=== PATIENT | male | born 1950 | race Caucasian/White ===

== ENCOUNTER 2018-03-05 07:58 | Outpatient (CLI) | payer BC, MEDICARE ==
[~2018-03-05] VITALS: Ht 185.4 cm; Wt 111.8 kg
--- NOTE | ~2018-03-05 | OP ---
PATIENT NAME: MILADYS CHAVEZ MEDICAL RECORD: [id number] :48 LOCATION:D.CAT ADMISSION DATE: SURGEON: LAURA YING MD DATE OF OPERATION: 03/05/2018 PROCEDURES: 1. PTCA and stent of ramus intermedius. 2. Left heart catheterization. 3. Selective coronary angiography. 4. Left ventriculogram. INDICATIONS: Angina and coronary artery disease. PROCEDURE IN DETAIL: After informed consent was obtained and after detailed description of the risks, benefits as well as alternative therapies, the patient elected to proceed with angiogram and angioplasty. The right radial area was prepped and draped in normal sterile fashion. Right radial artery was cannulated via modified Seldinger technique with placement of 6-Guatemalan sheath. All catheters exchanged through this sheath. FINDINGS: The left ventriculogram was performed in the standard 30-degree SANTIAGO view, reveals good cardiac wall motion throughout all segments. Overall ejection fraction estimated 60%. SELECTIVE CORONARY ANGIOGRAPHY: 1. Left main is with no significant angiographic disease. 2. Left anterior descending has 2 areas of 90% and 95% stenosis; however, the distal LAD is not large. 3. The ramus intermedius is the larger than the LAD and it has a 90% stenosis proximally. 4. The left circumflex has moderate irregularities but no flow-limiting stenosis elsewise. 5. Right coronary has moderate irregularities but no flow-limiting stenosis. PTCA STENT OF THE RAMUS INTERMEDIUS: The stent used 2.5 x 15 mm William. Result was 0% residual stenosis. OVERALL IMPRESSION: Successful percutaneous transluminal coronary angioplasty and stent of the ramus intermedius going from 90% initial stenosis to 0% residual. PLAN: PTCA and stent of the LAD in the near future. 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
--- NOTE | ~2018-03-05 | HEMODYNAMI ---
PATIENT:MILADYS CHAVEZ MEDICAL RECORD: [id number] : 48 LOCATION:[facility]BR[facility]AN ADMISSION DATE: 03/05/18 Generatedon:03/05/201810:01 Patient name: MILADYS CHAVEZ Patient #: [id number] SSN: : Date of study: 03/05/2018 Page: Of Hemodynamic Procedure Report Patient Data Patient Demographics Procedure consent was obtained First Name: MILADYS Gender: Male Last Name: SCOTT : 1950 [facility] Initial: TIA Age: 68 year(s) Patient #: [id number] Race: Unknown Additional ID: [id number] Contact details Address: [address] [place] [address] ROAD State: [place] City: [place] Zip code: [address] Admission Admission Data Admission Date: 03/05/2018 Admission Time: 7:58 Arrival Date: 03/05/2018 Arrival Time: 10:00 Admit Source: Other Insurance Payor: Private health insurance Height (in.): 73 BSA: 2.39 (m2) Height (cm.): 185.42 BMI: 33.77 (kg/m2) Weight (lbs.): 256 Weight (kg.): 116.12 Procedure Procedure Types Cath Procedure Diagnostic Procedure [facility] w/Coronaries PCI Procedure Coronary Stent Coronary Stent Initial Procedure Description Procedure Date Procedure Date: 03/05/2018 Procedure Start Time: 9:43 Procedure End Time: 9:57 Procedure Staff Name Function Nakul Stewart MD Performing Physician Ángel Acosta RN Nurse Reba Mathur RT Monitor Cata Claudio RT Scrub Procedure Data Cath Procedure Fluoroscopy Diagnostic fluoroscopy Total fluoroscopy Time: 3.4 time: 3.4 min min Diagnostic fluoroscopy Total fluoroscopy dose: 861 dose: 861 mGy mGy Contrast Material Contrast Material Type Amount (ml) Isovue 300 82 Entry Location Entry Primary Successful Side Size Upsize Upsize Entry Closure [place] ccessful Closure Location (Fr) 1 (Fr) 2 (Fr) Remarks Device Remarks Radial Right 6 Fr Mechanical artery Short Compression Estimated blood loss: 5 ml Diagnostic catheters Device Type Used For End Catheter Placement DIAGNOSTIC [place] 110cm 5 Multi-vessel Fr catheter ([id number]) Angiography Procedure Complications No complications Procedure Medications Medication Administration Route Dosage Oxygen NC 2 l/min Lidocaine 2% added to field 20 Heparin Flush Bag added to field 2 bags (1000units/500ml NS) 0.9% NaCl I.V. 100 ml/hr Radial Cocktail I.A. 1 syringe (Verapomil 2mg/Nitro 400mcg/Heparin 1500units) Versed I.V. 1 mg Versed I.V. 1 mg Fentanyl I.V. 50 mcg Heparin Bolus I.V. 4000 units Integrilin (Bolus I.V. 10.2 ml 2mg/ml) Plavix P.O. 600 mg Fentanyl I.V. 50 mcg Fentanyl I.V. 50 mcg Hemodynamics Rest BSA: 2.39 (m2) O2 Consumption: Estimated: 266.58 (ml/min) O2 Consumption indexed : Estimated:111.54 (ml/min/m) Heart Rate: 58 (bpm) Pressure Samples Time Site Value (mmHg) Purpose Heart Use Rate(bpm) 9:47 LV 54/4,10 Snapshot 54 Snapshots Pre Cath Intra NCS Post Cath Vital Signs Time Heart Resp SPO2 etCO2 NIBP Rhythm Pain Sedation Rate (ipm) (%) (mmHg) (mmHg) Status Level (bpm) 9:32:28 64 15 98 23.2 116/73(94) NSR 0 (11) 10(A) , No pain 9:36:38 59 13 98 26.2 112/73(96) NSR 0 (11) 10(A) , No pain 9:40:45 63 12 95 26.2 102/74(91) NSR 0 (11) 10(A) , No pain 9:44:51 64 17 96 13.4 103/69(83) NSR 0 (11) 9(A) , No pain 9:49:42 76 15 93 24.7 114/69(83) NSR 0 (11) 9(A) , No pain 9:53:50 66 18 95 13.4 109/71(85) NSR 0 (11) 9(A) , No pain 10:00:17 67 16 96 12.7 135/68(94) NSR 0 (11) 10(A) , No pain Medications Time Medication Route Dose Verified Delivered Reason Notes Effectiveness by by 9:32:36 Oxygen NC 2 l/min Nakul Neal used for Pat Acosta RN procedure 9:32:43 Lidocaine 2% added 20ml Nakul Mota for local to vial Pat Stewart MD anesthetic field 9:32:49 Heparin Flush added 2 bags Nakul Mota used for Bag to Pat Stewart MD procedure (1000units/500ml field NS) 9:32:57 0.9% NaCl I.V. 100 Nakul Neal Per physician ml/hr Pat Acosta RN 9:42:21 Versed I.V. 1 mg Nakul Neal for sedation Pat Acosta RN 9:42:38 Fentanyl I.V. 50 mcg Nakul Neal for sedation Pat Acosta RN 9:46:37 Versed I.V. 1 mg Nakul Neal for sedation Pat Acosta RN 9:46:40 Fentanyl I.V. 50 mcg Nakul Neal for sedation Pat Acosta RN 9:46:45 Radial Cocktail I.A. 1 Nakul Mota for (Verapomil syringe Pat Stewart MD vasodilation 2mg/Nitro 400mcg/Heparin 1500units) 9:50:19 Fentanyl I.V. 50 mcg Nakul Neal for sedation Pat Acosat RN 9:51:26 Heparin Bolus I.V. 4000 Nakul Neal for verif ied units Pat Acosta RN anticoagulation with dr stewart 9:53:41 Integrilin I.V. 10.2 ml Nakul Neal for Waste d (Bolus 2mg/ml) Pat Acosta RN antiplatelet 9.8 ml therapy of vial 9:57:29 Plavix P.O. 600 mg Nakul Neal for Pat Acosta RN antiplatelet therapy Procedure Log Time Note 9:16:13 Diagnostic Cath Status : Elective 9:17:20 Ángel Acosta RN sent for patient. Start room use. 9:17:20 Time tracking: Regular hours (M-F 7:00 - 5:00) 9:17:25 Plan of Care:Hemodynamics will remain stable., Cardiac rhythm will remain stable., Comfort level will be maintained., Respiratory function will remain adequate., Patient/ family verbilizes understanding of procedure., Procedure tolerated without complication., Recovers from procedure without complications.. 9:18:07 Patient Height : 73 inches 9:18:07 Admit Source: Other 9:18:20 Patient Weight : 256 lbs 9:18:20 Insurance Payor : Private health insurance 9:18:21 Arrival Date: 03/05/2018 10:00:00 AM 9:21:21 Patient received from Pre/Post Procedure Room to CCL 2 Alert and oriented. Tansferred to table in Supine position. 9:21:22 Warm blankets applied, and nando hugger turned on for patient comfort. 9:21:23 Correct patient and procedure confirmed by team. 9:21:24 Signed procedure consent form obtained from patient. 9:21:25 ECG and BP/O2 sat monitors applied to patient. 9:28:20 Full Disclosure recording started 9:31:18 Vital chart was started 9:32:36 Oxygen 2 l/min NC was administered by Ángel Acosta RN; used for procedure; 9:32:43 Lidocaine 2% 20ml vial added to field was administered by Nakul Stewart MD; for local anesthetic; 9:32:49 Heparin Flush Bag (1000units/500ml NS) 2 bags added to field was administered by Nakul Stewart MD; used for procedure; 9:32:57 0.9% NaCl 100 ml/hr I.V. was administered by Ángel Acosta RN; Per physician; 9:36:05 Baseline sample Acquired. 9:36:11 Rhythm: sinus rhythm 9:36:19 H&P Date Dictated: 03/05/2018 Within 30 days and on chart., H&P Addendum completed by physician on day of procedure. (MUST COMPLETE FOR ALL OUTPATIENTS). 9:36:20 Pre-procedure instructions explained to patient. 9:36:21 Pre-op teaching completed and patient verbalized understanding. 9:36:23 Family in waiting room. 9:36:24 Patient NPO since Midnight. 9:36:33 Is the patient allergic to Iodine/contrast media? No. 9:36:34 Was the patient premedicated? No 9:36:35 Is patient on blood thinner?No 9:36:37 Patient diabetic? No. 9:36:40 Previous problem with sedation/anesthesia? No ? 9:36:42 Snore? No 9:36:43 Sleep apnea? No 9:36:44 Deviated septum? No 9:36:46 Opens mouth fully? Yes 9:36:47 Sticks out tongue? Yes 9:36:49 Airway obstruction? No ? 9:37:13 Dentures? No ? 9:37:17 Pre procedure: right dorsailis pedis pulse 2+ Normal; easily identifiable; not easily obliterated 9:37:20 Pre procedure: left dorsailis pedis pulse 2+ Normal; easily identifiable; not easily obliterated 9:37:25 Patient pain scale 0/10 ?. 9:37:32 IV patent on arrival in left forearm with 0.9% NaCl at [facility]. 9:37:34 Lab results completed and on chart. 9:37:40 Right Radial & Right Groin area was prepped with chlora-prep and draped in sterile fashion 9:37:41 Alarms reviewed by R. N. 9:37:41 Sharps counted by scrub and verified by R.N. 9:41:13 Physician arrived 9:41:15 Zero performed for pressure channel P1 9:41:36 --------ALL STOP TIME OUT------ 9:41:36 Final Timeout: patient, procedure, and site verified with staff and physician. All members of the team are in agreement. 9:41:39 Right Radial & Right Groin site verified by team. 9:41:43 Physical assessment completed. ASA score P 2 - A patient with mild systemic disease as per Nakul Stewart MD. 9:41:46 Sedation plan: IV Moderate Sedation Medication:Versed, Fentanyl 9:42:21 Versed 1 mg I.V. was administered by Ángel Acosta RN; for sedation; 9:42:37 Procedure started. 9:42:38 Fentanyl 50 mcg I.V. was administered by Ángel Acosta RN; for sedation; 9:43:59 Local anesthetic to right radial artery with Lidocaine 2% by Nakul Stewart MD.INITIAL ACCESS ONLY 9:44:14 A 6 Fr Short sheath was inserted into the Right Radial artery 9:44:21 Use device set Radial Dx or PCI 9:44:22 ACIST Syringe (38651) opened to sterile field. 9:44:22 Medline Cath Pack ([id number]) opened to sterile field. 9:44:23 Bag Decanter (2002) opened to sterile field. 9:44:23 DIAGNOSTIC WIRE .035 260cm J wire (763101) opened to sterile field. 9:44:24 ACIST Hand Control (67551) opened to sterile field. 9:44:24 ACIST Manifold (16449) opened to sterile field. 9:44:25 Tegaderm 4 x 4 (1626W) opened to sterile field. 9:44:25 MBrace Wrist Support ([id number]) opened to sterile field. 9:44:26 SHEATH 6Fr Prelude Radial ([id number]) opened to sterile field. 9:46:37 Versed 1 mg I.V. was administered by Ángel Acosta RN; for sedation; 9:46:40 Fentanyl 50 mcg I.V. was administered by Ángel Acosta RN; for sedation; 9:46:45 Radial Cocktail (Verapomil 2mg/Nitro 400mcg/Heparin 1500units) 1 syringe I.A. was administered by Nakul Stewart MD; for vasodilation; 9:46:53 A DIAGNOSTIC [place] 110cm 5 Fr catheter (660891) was advanced over the wire and used for Multi-vessel Angiography. 9:47:29 LV hemodynamics recorded. 9:47:32 LV gram done using SANTIAGO 9:47:35 Injector settings: Ml/sec: 5, Volume: 15, 9:47:41 EF : 60 % 9:47:59 LCA angiography performed. 9:48:01 Injector settings: Ml/sec: 3, Volume: 6, 9:49:27 RCA angiography performed. 9:49:31 Injector settings: Ml/sec: 3, Volume: 6, 9:50:01 Catheter removed. 9:50:01 Proceeding to intervention. 9:50:17 INFLATOR Merit BasixCompak (IM6269) opened to sterile field. 9:50:18 CHOICE PT Extra Support 182cm wire ([id number]) opened to sterile field. 9:50:19 Fentanyl 50 mcg I.V. was administered by Ángel Acosta RN; for sedation; 9:50:33 GUIDE 6FR XBLAD 3.5 catheter ([id number]) opened to sterile field. 9:50:43 6 Fr xblad 3.5 guide catheter was inserted over the wire 9:50:51 choice pt wire advanced. 9:51:26 Heparin Bolus 4000 units I.V. was administered by Ángel Acosta RN; for anticoagulation; verified with dr stewart 9:53:41 Integrilin (Bolus 2mg/ml) 10.2 ml I.V. was administered by Ángel Acosta RN; for antiplatelet therapy; Wasted 9.8 ml of vial 9:54:00 Place stent Inflation Number: 1 A MERCEDES RX 2.5 x 15 stent ([id number]) was prepped and advanced across the Ramus. The stent was deployed at 13 KAREN for 0:10 (min:sec). 9:54:24 Stent catheter was removed intact over wire. 9:54:27 Wire removed. 9:54:27 Guide catheter removed. 9:54:43 Sheath removed intact; hemostasis achieved with Mechanical Compression to the Right Radial artery. 9:55:04 TR BAND Large ([id number]) opened to sterile field. 9:55:46 Procedure ended.(Physican Out) 9:56:10 Fluoroscopy time 03.40 minutes. 9:56:13 Fluoroscopy dose: 861 mGy 9:56:13 Flurop Dose total: 861 9:56:17 Contrast amount:Isovue 300 82ml. 9:56:19 Sharps counted by scrub and verified by R.N. 9:56:22 TR band inflated with 10cc of air. 9:56:23 Insertion/operative site no bleeding no hematoma. 9:56:27 Post right radial artery:stable 9:56:28 Post Procedure Pulses reassessed and unchanged 9:56:31 Post procedure rhythm: unchanged. 9:56:33 Estimated blood loss: 5 ml 9:56:35 Post procedure instruction explained to patient.Patient verbalizes understanding. 9:56:35 Patient needs reinforcement of post procedure teaching. 9:56:57 Procedure type changed to Cath procedure, Diagnostic procedure, LHC, LHC w/Coronaries, PCI procedure, Coronary Stent, Coronary Stent Initial 9:56:58 Procedure and supply charges have been captured, reviewed, submitted and are correct. 9:57:02 Procedure Complication : No complications 9:57:05 Vital chart was stopped 9:57:05 See physician's report for complete and final results. 9:57:10 Report given to Pre/Post Procedure Room. 9:57:12 Patient transfered to Pre/Post Procedure Room with Stretcher. 9:57:15 Procedure ended. 9:57:15 Full Disclosure recording stopped 9:57:22 ACC-PCI Only Patient was given prescriptions, or instructed by Nakul Stewart MD to start/continue the following medications upon discharge: Plavix 9:57:23 End room use (Document Last) 9:57:29 Plavix 600 mg P.O. was administered by Ángel Acosta RN; for antiplatelet therapy; Intervention Summary Intervention Notes Time ActionType Lesion and Equipment Used Action# Pressure Duration Attributes 9:54:[address] Place stent Ramus MERCEDES RX 2.5 x 1 13 00:10 15 stent ([id number]) Device Usage Item Name Manufacture Quantity Catalog Number Hospital Part Current Minimal Lot# / Charge Number Stock Stock Serial# Code ACIST Syringe Acist 1 [id number] 724901 841902 [id number] 20 (96123) Medical Systems Inc Medline Cath Cardinal 1 [id number] 775909 42145 966505 5 Cloudmark ([id number]) Bag Decanter Microtek 1 2001S 615175 96034 671849 5 (2001S) Medical Inc. DIAGNOSTIC WIRE St Will 1 183864 654336 069839 848135 30 .035 260cm J wire (118701) ACIST Hand Acist 1 43608 896167 737122 343884 5 Control (94130) Medical [employer] Inc ACIST Manifold Acist 1 25991 250902 451734 573258 5 (44410) Medical Systems Inc Tegaderm 4 x 4 3M 1 1626W 440147 057499 626423 5 (1626W) MBrace Wrist Advanced 1 140-0250-00 720422 67474 827108 5 Support Vascular ([id number]) Dynamics SHEATH 6Fr Merit 1 [id number] 505631 527266 178297 5 Prelude Radial Medical ([id number]) DIAGNOSTIC Terumo 1 14-2985 615297 921287 615143 5 [place] 110cm 5 Fr catheter (284210) INFLATOR Merit Merit 1 [id number] 234983 730123 404384 15 menschmaschine publishing Medical (CQ0086) CHOICE PT Extra [place] 1 [id number] 167068 282697 947928 5 Support 182cm Scientific wire ([id number]) GUIDE 6FR XBLAD Cardinal 1 [id number] 711888 252174 319959 10 3.5 catheter Health ([id number]) MERCEDES RX 2.5 x Medtronic 1 [id number] 122098 1041584 787467 5 [id number] 15 stent ([id number]) TR BAND Large Terumo 1 [id number] 033466 086017 754920 40 ([id number]) Signature Audit [place] Stage Time Signature Unsigned Intra-Procedure 03/05/2018 Reba Mathur 10:01:32 AM RT(R) Signatures Monitor : Reba Mathur RT Signature : Date : Time : [address] [place] [address]
[2018-03-05] MEDS ORDERED: PRINIVIL20 MG PO (08:12)
[2018-03-05 08:26] VITALS: BP 151/73; Ht 185.4 cm; Wt 111.8 kg
[2018-03-05 08:37] LABS: BASOPHILS 0.5 % (0-2); EOSINOPHILS 2.3 % (0-7); HEMATOCRIT 40.1 % (42.0-54.0); HEMOGLOBIN 14.1 g/dL (13.5-17.5); IMMATURE GRANULOCYTES 0.6 % (0-5); LYMPHOCYTES 14.6 % (15-50); MCH 32.9 pg (26.0-34.0); MCHC 35.2 g/dL (31.0-37.0); MCV 93.7 fL (80.0-100.0); MEAN PLATELET VOLUME 9.9 fL (7.4-10.4); MONOCYTES 12.3 % (2-11); NEUTROPHILS 69.7 % (40-80); PLATELET COUNT 171 10x3/uL (130-400); RBC 4.28 10x6/uL (4.20-6.10); RDW 12.8 % (11.5-14.5); WBC 7.9 10x3/uL (4.8-10.8)
[2018-03-05 09:02] LABS: ANION GAP 14.8 mmol/L (8-16); CALCIUM 8.7 mg/dL (8.5-10.1); CARBON DIOXIDE 24.9 mmol/L (21.0-32.0); CREATININE - SERUM 1.1 mg/dL (0.6-1.3); POTASSIUM - SERUM 4.7 mmol/L (3.5-5.1)
[2018-03-05] MEDS ORDERED: PLAVIX75 MG PO (10:21)
== END 2018-03-05 14:00 | disposition home or self-care (01) ==
LOC: D.CATH 07:58
PROVIDERS: Internal Medicine Interventional Cardiology
DX: I25.119 Atherosclerotic heart disease of native coronary artery with unspecified angina pectoris (principal)

== ENCOUNTER 2018-03-10 07:56 | Outpatient (CLI) | payer BC, MEDICARE ==
[~2018-03-10] VITALS: Ht 185.4 cm; Wt 110.9 kg
--- NOTE | ~2018-03-10 | HEMODYNAMI ---
PATIENT:MILADYS CHAVEZ MEDICAL RECORD: [id number] : 48 LOCATION:[facility] ADMISSION DATE: 03/10/18 Generatedon:03/10/20189:57 Patient name: MILADYS CHAVEZ Patient #: [id number] SSN: : Date of study: 03/10/2018 Page: Of Hemodynamic Procedure Report Patient Data Patient Demographics Procedure consent was obtained First Name: MILADYS Gender: Male Last Name: SCOTT : 1950 [facility] Initial: TIA Age: 68 year(s) Patient #: [id number] Race: Unknown Additional ID: [id number] Contact details Address: [address] [place] [address] ROAD State: [place] City: [place] Zip code: [address] Past Medical History Allergies: No known allergies Admission Admission Data Admission Date: 03/10/2018 Admission Time: 7:56 Admit Source: Other Lab Results Lab Result Date: 03/10/2018 Lab Result Time: 8:20 Biochemistry Name Units Result Min Max BUN mg/dl 18 --(---*)-- 7 18 Creatinine mg/dl 1.2 --(---*)-- 0.6 1.3 CBC Name Units Result Min Max Hematocrit % 42.6 --(*---)-- 42 54 Hemoglobin g/dl 15 --(-*--)-- 13.5 17.5 Procedure Procedure Types Cath Procedure Diagnostic Procedure Sedation Charges Moderate Sedation up to 15 minutes PCI Procedure Coronary Stent Coronary Stent Initial Procedure Description Procedure Date Procedure Date: 03/10/2018 Procedure Start Time: 9:42 Procedure End Time: 9:56 Procedure Staff Name Function Nakul Stewart MD Performing Physician Iggy Saucedo RN Nurse Inocencio Zambrano RT Scrub Yarely Moe RT Monitor Lex Borges RN Boilermaker Pipe Fitter Procedure Data Cath Procedure Fluoroscopy Diagnostic fluoroscopy Total fluoroscopy Time: 4.9 time: 4.9 min min Diagnostic fluoroscopy Total fluoroscopy dose: 642 dose: 642 mGy mGy Contrast Material Contrast Material Type Amount (ml) Isovue 300 80 Entry Location Entry Primary Successful Side Size Upsize Upsize Entry Closure Succes sful Closure Location (Fr) 1 (Fr) 2 (Fr) Remarks Device Remarks Femoral Right 6 Fr Exoseal artery Short Estimated blood loss: 10 ml Procedure Complications No complications Procedure Medications Medication Administration Route Dosage 0.9% NaCl I.V. 100 ml/hr Oxygen etCO2 Nasal cannula 2 l/min Heparin Flush Bag added to field 2 bags (1000units/500ml NS) Lidocaine 2% added to field 20 Versed I.V. 2 mg Fentanyl I.V. 100 mcg Versed I.V. 2 mg Heparin Bolus I.V. 4000 units Hemodynamics Rest HGB: 15 (g/dl) Heart Rate: 66 (bpm) Snapshots Pre Cath Intra NCS Post Cath Vital Signs Time Heart Resp SPO2 etCO2 NIBP (mmHg) Rhythm Pain Sedation Rate (ipm) (%) (mmHg) Status Level (bpm) 9:20:50 58 16 96 34.4 143/80(105) NSR 0 (11) 10(A) , No pain 9:25:29 59 13 97 33.7 120/66(100) NSR 0 (11) 10(A) , No pain 9:30:06 54 13 99 32.2 130/74(106) NSR 0 (11) 10(A) , No pain 9:34:42 54 17 96 31.4 128/74(99) NSR 0 (11) 10(A) , No pain 9:39:12 65 16 97 27.7 103/80(93) NSR 0 (11) 10(A) , No pain 9:43:45 58 15 98 33.7 121/81(109) NSR 0 (11) 10(A) , No pain 9:48:19 67 13 95 21.7 119/77(89) NSR 0 (11) 9(A) , No pain 9:53:00 65 14 97 32.2 121/65(96) NSR 0 (11) 9(A) , No pain Medications Time Medication Route Dose Verified Delivered Reason Notes Effectiveness by by 9:13:18 0.9% NaCl I.V. 100 Iggy Iggy Per physician ml/hr Sheryl Saucedo RN RN 9:13:29 Oxygen etCO2 2 Iggy Iggy Per physician Nasal l/min Sheryl Saucedo cannula RN RN 9:13:44 Heparin Flush added 2 Iggy Iggy used for Bag to bags Sheryl Saucedo procedure (1000units/500ml field RN RN NS) 9:13:55 Lidocaine 2% added 20ml Iggy Iggy for local to vial Sheryl Saucedo anesthetic RN RN 9:34:51 Versed I.V. 2 mg Iggy Iggy for sedation Sheryl Saucedo RN RN 9:34:59 Fentanyl I.V. 100 Iggy Iggy for sedation mcg Sheryl Saucedo RN RN 9:42:40 Versed I.V. 2 mg Iggy Iggy for sedation Sheryl Saucedo RN RN 9:45:32 Heparin Bolus I.V. 4000 Iggy Iggy for units Sheryl Saucedo anticoagulation RN consultative sales associate Log Time Note 9:00:10 Informed consent obtained and on chart 9:00:13 Admit Source: Other 9:00:23 Lex Borges RN sent for patient. Start room use. 9:00:52 Diagnostic Cath status Elective 9:00:56 Time tracking: Regular hours (M-F 7:00 - 5:00) 9:00:59 Plan of Care:Hemodynamics will remain stable., Cardiac rhythm will remain stable., Comfort level will be maintained., Respiratory function will remain adequate., Patient/ family verbilizes understanding of procedure., Procedure tolerated without complication., Recovers from procedure without complications.. 9:01:19 H&P Date Dictated: 02/12/2018 Within 30 days and on chart., H&P Addendum completed by physician on day of procedure. (MUST COMPLETE FOR ALL OUTPATIENTS). 9:06:06 Patient received from Pre/Post Procedure Room to CCL 1 Alert and oriented. Tansferred to table in Supine position. 9:06:07 Warm blankets applied, and nando hugger turned on for patient comfort. 9:06:08 Correct patient and procedure confirmed by team. 9:06:09 ECG and BP/O2 sat monitors applied to patient. 9:06:11 Pre-procedure instructions explained to patient. 9:06:11 Pre-op teaching completed and patient verbalized understanding. 9:13:18 0.9% NaCl 100 ml/hr I.V. was administered by Iggy Saucedo RN; Per physician; 9:13:29 Oxygen 2 l/min etCO2 Nasal cannula was administered by gIgy Saucedo RN; Per physician; 9:13:44 Heparin Flush Bag (1000units/500ml NS) 2 bags added to field was administered by Iggy Saucedo RN; used for procedure; 9:13:55 Lidocaine 2% 20ml vial added to field was administered by Iggy Saucedo RN; for local anesthetic; 9:14:05 Vital chart was started 9:14:42 Baseline sample Acquired. 9:14:51 Rhythm: sinus rhythm 9:14:52 Full Disclosure recording started 9:14:57 Family in waiting room. 9:14:58 Patient NPO since Midnight. 9:15:03 Patient allergic to No known allergies 9:15:04 Is the patient allergic to Iodine/contrast media? No. 9:15:05 Is patient on blood thinner?Yes 9:15:07 ACC The patient was administered the following blood thiners within the last 24 hours: ACCPlavix 9:15:08 Patient diabetic? No. 9:15:11 Previous problem with sedation/anesthesia? No ? 9:15:14 Snore? Yes 9:15:15 Sleep apnea? No 9:15:16 Deviated septum? No 9:15:16 Opens mouth fully? Yes 9:15:17 Sticks out tongue? Yes 9:15:19 Airway obstruction? No ? 9:15:20 Dentures? No ? 9:15:24 Pre procedure: right dorsailis pedis pulse 2+ Normal; easily identifiable; not easily obliterated 9:15:25 Patient pain scale 0/10 ?. 9:15:33 IV patent on arrival in left forearm with 0.9% NaCl at [facility]. 9:16:09 Lab Result : BUN 18 mg/dl 9:16:09 Lab Result : Creatinine 1.2 mg/dl 9:16:09 Lab Result : Hemoglobin 15 g/dl 9:16:09 Lab Result : Hematocrit 42.6 % 9:16:11 Lab results completed and on chart. 9:16:14 Right groin area was prepped with chlora-prep and draped in sterile fashion 9:16:15 Alarms reviewed by R. N. 9:16:15 Sharps counted by scrub and verified by R.N. 9:16:18 ACIST Syringe (44165) opened to sterile field. 9:16:19 Bag Decanter (2001S) opened to sterile field. 9:16:19 Medline Cath Pack ([id number]) opened to sterile field. 9:16:20 DIAGNOSTIC WIRE .035 260cm J wire (111315) opened to sterile field. 9:16:21 ACIST Hand Control (82797) opened to sterile field. 9:16:22 ACIST Manifold (39602) opened to sterile field. 9:16:23 Tegaderm 4 x 4 (1626W) opened to sterile field. 9:16:41 CHOICE PT Extra Support 182cm wire ([id number]) opened to sterile field. 9:16:42 SHEATH Prelude 6Fr 0.035 (ZCE-2W-18-035) opened to sterile field. 9:16:42 INFLATOR Merit BasixCompak (SY7134) opened to sterile field. 9:17:01 Zero performed for pressure channel P1 9:19:55 Vital chart was stopped 9:20:00 Vital chart was started 9:33:19 Physician arrived 9:33:20 --------ALL STOP TIME OUT------ 9:33:20 Final Timeout: patient, procedure, and site verified with staff and physician. All members of the team are in agreement. 9:33:22 Right groin site verified by team. 9:33:24 Physical assessment completed. ASA score P 2 - A patient with mild systemic disease as per Nakul Stewart MD. 9:33:27 Sedation plan: IV Moderate Sedation Medication:Versed, Fentanyl 9:34:51 Versed 2 mg I.V. was administered by Iggy Saucedo RN; for sedation; 9:34:59 Fentanyl 100 mcg I.V. was administered by Iggy Saucedo RN; for sedation; 9:42:06 Procedure started. 9:42:08 Local anesthetic to right femoral artery with Lidocaine 2% by Nakul Stewart MD.INITIAL ACCESS ONLY 9:42:34 A 6 Fr Short sheath was inserted into the Right Femoral artery 9:42:40 Versed 2 mg I.V. was administered by Iggy Saucedo RN; for sedation; 9:43:37 GUIDE 6FR XBLAD 3.5 catheter ([id number]) opened to sterile field. 9:43:44 6 Fr xblad 3.5 guide catheter was inserted over the wire 9:44:16 choice pt es wire advanced. 9:45:12 Wire removed. 9:45:32 Heparin Bolus 4000 units I.V. was administered by Iggy Saucedo RN; for anticoagulation; 9:46:20 Inflate balloon Inflation number: 1 A EUPHORA 2.0 x 20 Balloon ([id number]) was prepped and advanced across the Prox LAD, then inflated to 13 KAREN for 0:10 (min:sec). 9:46:31 multiple inflations to 13 atms. 9:46:47 Inflation number: 2 The EUPHORA 2.0 x 20 Balloon ([id number]) was reinflated across the Prox LAD, to 15 KAREN for 0:10 (min:sec). 9:47:13 Inflation number: 3 The EUPHORA 2.0 x 20 Balloon ([id number]) was reinflated across the Prox LAD, to 19 KAREN for 0:10 (min:sec). 9:47:32 Inflation number: 4 The EUPHORA 2.0 x 20 Balloon ([id number]) was reinflated across the Prox LAD, to 21 KAREN for 0:10 (min:sec). 9:47:57 Balloon removed over the wire. 9:49:26 Place stent Inflation Number: 5 A MERCEDES RX 2.0 x 26 stent ([id number]) was prepped and advanced across the Prox LAD. The stent was deployed at 13 KAREN for 0:10 (min:sec). 9:50:15 Stent catheter was removed intact over wire. 9:51:18 Place stent Inflation Number: 6 A MERCEDES RX 2.25 x 12 stent ([id number]) was prepped and advanced across the Prox LAD. The stent was deployed at 23 KAREN for 0:10 (min:sec). 9:52:10 Stent catheter was removed intact over wire. 9:52:10 Wire removed. 9:52:11 Guide catheter removed. 9:52:17 EXOSEAL 6Fr (EX600) opened to sterile field. 9:52:23 Sheath removed intact; hemostasis achieved with Exoseal to the Right Femoral artery. 9:52:25 Procedure ended.(Physican Out) 9:54:58 Fluoroscopy time 04.90 minutes. 9:55:02 Flurop Dose total: 642 9:55:02 Fluoroscopy dose: 642 mGy 9:55:05 Contrast amount:Isovue 300 80ml. 9:55:06 Sharps counted by scrub and verified by R.N. 9:55:07 Insertion/operative site no bleeding no hematoma. 9:55:09 Post-op/insertion site Right Femoral artery dressed using a 4 x 4 and Tegaderm. 9:55:13 Post right femoral artery:stable, soft, clean and dry 9:55:15 Post Procedure Pulses reassessed and unchanged 9:55:17 Post-procedure physical assessment completed. ASA score P 2 - A patient with mild systemic disease as per Nakul Stewart MD. 9:55:20 Post procedure rhythm: unchanged. 9:55:23 Estimated blood loss: 10 ml 9:55:24 Post procedure instruction explained to patient.Patient verbalizes understanding. 9:55:24 Patient needs reinforcement of post procedure teaching. 9:55:33 Procedure type changed to Cath procedure, Diagnostic procedure, Sedation Charges, Moderate Sedation up to 15 minutes, PCI procedure, Coronary Stent, Coronary Stent Initial 9:56:41 Procedure and supply charges have been captured, reviewed, submitted and are correct. 9:56:43 Procedure Complication : No complications 9:56:45 See physician's report for complete and final results. 9:56:47 Report given to Pre/Post Procedure Room. 9:56:49 Patient transfered to Pre/Post Procedure Room with Stretcher. 9:56:51 Procedure ended. 9:56:51 Full Disclosure recording stopped 9:56:55 End room use (Document Last) 9:57:15 Vital chart was stopped Intervention Summary Intervention Notes Time ActionType Lesion and Equipment Used Action# Pressure Duration Attributes 9:46:20 Inflate Prox LAD EUPHORA 2.0 x 1 13 00:10 balloon 20 Balloon ([id number]) 9:46:47 Reinflate Prox LAD EUPHORA 2.0 x 2 15 00:10 balloon 20 Balloon ([id number]) 9:47:13 Reinflate Prox LAD EUPHORA 2.0 x 3 19 00:10 balloon 20 Balloon ([id number]) 9:47:32 Reinflate Prox LAD EUPHORA 2.0 x 4 21 00:10 balloon 20 Balloon ([id number]) 9:49:26 Place stent Prox LAD MERCEDES RX 2.0 x 5 13 00:10 26 stent ([id number]) 9:51:18 Place stent Prox LAD MERCEDES RX 2.25 x 6 23 00:10 12 stent ([id number]) Device Usage Item Name Manufacture Quantity Catalog Number Hospital Part Current Minimal Lot# / Charge Number Stock Stock Serial# Code ACIST Syringe Acist 1 56476 347687 404993 [id number] 20 (00178) Medical Systems Inc Bag Decanter Microtek 1 2001S 183986 26550 450273 5 (2001S) Medical Inc. Medline Cath Cardinal 1 [id number] 461667 70706 765794 5 Pack Health ([id number]) DIAGNOSTIC WIRE St Will 1 542868 646717 876106 699262 30 .035 260cm J wire (214376) ACIST Hand Acist 1 15655 522500 957922 575259 5 Control (06637) Medical Systems Inc ACIST Manifold Acist 1 16047 005574 610624 985590 5 (45763) Medical Systems Inc Tegaderm 4 x 4 3M 1 1626W 191710 092989 586673 5 (1626W) CHOICE PT Extra [place] 1 [id number] 198800 398486 334229 5 Support 182cm Scientific wire ([id number]) SHEATH Prelude Merit 1 ALS-8C-81-35 954832 8386902 931389 5 6Fr 0.035 Medical (KQQ-6I-55-035) INFLATOR Merit Merit 1 QK1527 458179 818972 101075 15 [facility] Medical (MG6017) GUIDE 6FR XBLAD Cardinal 1 [id number] 058937 456803 081444 10 3.5 catheter Triporati ([id number]) EUPHORA 2.0 x Medtronic 1 [id number] 356219 174250 791011 5 [id number] 20 Balloon ([id number]) MERCEDES RX 2.0 x Medtronic 1 [id number] 962932 260051 864817 5 [id number] 26 stent ([id number]) MERCEDES RX 2.25 x Medtronic 1 [id number] 569368 8591204 453845 5 [id number] 12 stent ([id number]) EXOSEAL 6Fr Cardinal 1 EX600 852839 066098 212992 10 (EX600) Health Signature Audit Diana Stage Time Signature Unsigned Intra-Procedure 03/10/2018 Inocencio Zambrano 9:57:12 AM RT(R) Signatures Monitor : Yarely Moe Signature : RT Date : Time : [place] [address] [place] [address]
--- NOTE | ~2018-03-10 | OP ---
PATIENT NAME: MILADYS CHAVEZ MEDICAL RECORD: [id number] :48 LOCATION:D[facility] ADMISSION DATE: SURGEON: LAURA YING MD DATE OF OPERATION: 03/10/2018 PROCEDURES: 1. PTCA stent LAD. 2. Selective coronary angiography. DESCRIPTION OF PROCEDURE: After informed consent was obtained and after detailed explanation of risks, benefits as well as alternative therapies, the patient elected to proceed with angiogram and angioplasty. The right femoral area was prepped and draped in normal sterile fashion. Right femoral artery was cannulated via modified Seldinger technique with placement of 6-Macanese sheath. All catheters exchanged through this sheath. FINDINGS: The left anterior descending has multiple areas of 95% stenosis addressed with a 2.0 x 26 and 2.25 x 12 both William stents. Result was 0% residual stenosis. OVERALL IMPRESSION: Successful percutaneous transluminal coronary angioplasty stent of the left anterior descending going from 95% initial stenosis to 0% residual. TRANSINT:[id number] Voice Confirmation ID: [id number] DOCUMENT ID: [id number] LAURA YING MD at 1325 CC: [id number] DICTATION DATE: 03/10/18 0955 POTATO INSPECTOR: 03/10/18 1111 DEP CLI 03/10/[address] [address]
--- NOTE | ~2018-03-10 | HP ---
PATIENT: MILADYS CHAVEZ MEDICAL RECORD: [id number] ACCOUNT: [id number] LOCATION:[facility] : 48 ADMISSION DATE: 03/10/18 HISTORY AND PHYSICAL EXAMINATION ADMITTING DIAGNOSES: 1. Angina. 2. Coronary artery disease. 3. Percutaneous transluminal coronary angioplasty/stent of the left circumflex last week with concomitant disease to the left anterior descending. 4. Hypertension. 5. Hyperlipidemia. HISTORY OF PRESENT ILLNESS: Mr. Chavez presents with unstable anginal symptomatology, found to have 2-vessel disease, underwent successful PTCA and stent of the left circumflex, now brought back for PTCA and stent of the LAD. PHYSICAL EXAMINATION: GENERAL APPEARANCE: Well nourished, well developed, appears stated age. Level of distress, comfortable. PSYCHIATRIC: Mental status, alert, normal affect. Orientation, oriented to time, place and person. EYES: Lids and conjunctiva, noninjected. No discharge, no pallor. ENT: Lips, teeth, gums, normal dentition. Oropharynx, no cyanosis, no pallor. NECK: Carotid arteries, bilateral normal upstroke, no bruits, no thrills. JUGULAR VEINS: No jugular venous pressure or distention. CERVICAL LYMPH NODES: Nontender, nonenlarged. THYROID: Not enlarged. Nontender. No nodules. LUNGS: Respiratory effort, unlabored. CHEST: Normal curvature. No thoracic deformity. No chest wall tenderness. Percussion, resonant. Auscultation, clear. No wheezes, no rales, no rhonchi. CARDIOVASCULAR: Precordial exam, nondisplaced. No heaves or pericardial thrills. Rate and rhythm, regular. Heart sounds, normal S1, normal S2. No S3, no gallop, no rub. Systolic murmur, not heard. Diastolic murmur, not heard. EXTREMITIES: No cyanosis, no edema. Peripheral pulses, full and equal in all extremities, except as noted. No bruits appreciated. ABDOMEN: Soft, nondistended. Normal aorta. No bruit. Nontender. No masses. Liver, nontender, no hepatomegaly. Spleen, nontender, no splenomegaly. MUSCULOSKELETAL: No joint tenderness. No joint swelling. No erythema. NEUROLOGICAL: Normal gait, normal strength, normal tone. SKIN: Warm and dry. REVIEW OF SYSTEMS: The patient reports easy bruising but reports no swollen glands. The patient reports no fever, no night sweats, no significant weight gain, no significant weight loss. No significant exercise tolerance. The patient reports no dry eyes, no irritation, no vision change. Patient reports no difficulty hearing and no ear pain. Patient reports no frequent nose bleeds or nose and sinus problems. Patient reports on arm pain on exertion. No shortness of breath while lying down. No history of heart murmur. Patient reports no cough, no wheezing or coughing up blood. Patient reports no abdominal pain, no vomiting. Normal appetite. No diarrhea and not vomiting blood. No nausea and no constipation. Patient reports no incontinence. No difficulty urinating. No hematuria. No increased frequency. Patient reports no muscle aches. No weakness, no arthralgias, no back pain. No swelling of the extremities. Patient reports no abnormal mole, no jaundice, no rashes. Reports HISTORY AND PHYSICAL [id number] MILADYS CHAVEZ no loss of consciousness. No weakness and no numbness. No seizures, dizziness, or headaches. The patient reports no depression, no sleep disturbance, feeling safe in a relationship and no alcohol abuse. Patient reports on fatigue. Reports no runny nose or sinus pressure. No itching, no hives, and no frequent sneezing. OVERALL IMPRESSION: Anginal symptomatology with significant disease to the left anterior descending. We will proceed with percutaneous transluminal coronary angioplasty and stent of the left anterior descending. TRANSINT:[id number] Voice Confirmation ID: [id number] DOCUMENT ID: [id number] LAURA YING MD at 1325 CC: [id number] DICTATION DATE: 03/10/18 0939 SPOOL SALVAGER: 03/10/18 1022 DEP CLI 03/10/18 [facility] [address] [id number]
[~2018-03-10 07:56] MED LIST: PLAVIX75 MG PO; PRINIVIL20 MG PO
[2018-03-10 08:09] VITALS: BP 141/96; Ht 185.4 cm; Wt 110.9 kg
[2018-03-10 08:25] LABS: BASOPHILS 0.4 % (0-2); EOSINOPHILS 3.5 % (0-7); HEMATOCRIT 42.6 % (42.0-54.0); LYMPHOCYTES 21.7 % (15-50); MCH 32.8 pg (26.0-34.0); MCHC 35.2 g/dL (31.0-37.0); MCV 93.2 fL (80.0-100.0); MEAN PLATELET VOLUME 9.5 fL (7.4-10.4); MONOCYTES 11.3 % (2-11); NEUTROPHILS 62.1 % (40-80); PLATELET COUNT 198 10x3/uL (130-400); RBC 4.57 10x6/uL (4.20-6.10); RDW 12.4 % (11.5-14.5); WBC 7.1 10x3/uL (4.8-10.8)
[2018-03-10 08:56] LABS: ANION GAP 12.1 mmol/L (8-16); CALCIUM 8.8 mg/dL (8.5-10.1); CARBON DIOXIDE 25.1 mmol/L (21.0-32.0); CREATININE - SERUM 1.2 mg/dL (0.6-1.3); POTASSIUM - SERUM 4.2 mmol/L (3.5-5.1)
[2018-03-10] MEDS ORDERED: ASPIRIN81 MG PO (10:06)
== END 2018-03-10 13:54 ==
LOC: D.CATH 07:56
PROVIDERS: Internal Medicine Interventional Cardiology
DX: I25.110 Atherosclerotic heart disease of native coronary artery with unstable angina pectoris (principal)

== ENCOUNTER 2018-09-14 13:15 | Inpatient (IN) | payer BC, MEDICARE ==
[~2018-09-14] VITALS: Ht 185.4 cm; Wt 110.5 kg
[2018-09-14] VITALS (7 sets, daily range): BP systolic 101–161; BP diastolic 64–94; BMI 32.3
--- NOTE | ~2018-09-14 | HEMODYNAMI ---
PATIENT:MILADYS CHAVEZ MEDICAL RECORD: [id number] : 48 LOCATION:[facility] D.2306 ADMISSION DATE: 09/14/18 Generatedon:09/15/201812:45 Patient name: MILADYS CHAVEZ Patient #: [id number] SSN: : Date of study: 09/15/2018 Page: Of Hemodynamic Procedure Report Patient Data Patient Demographics Procedure consent was obtained First Name: MILADYS Gender: Male Last Name: SCOTT : 1950 [facility] Initial: TIA Age: 68 year(s) Patient #: [id number] Race: Additional ID: [id number] Contact details Address: [address] [place] [address] ROAD State: [place] City: [place] Zip code: [address] Past Medical History Allergies: No known allergies Admission Admission Data Admission Date: 09/14/2018 Admission Time: 16:49 Room #: D.2306 Lab Results Lab Result Date: 09/15/2018 Lab Result Time: 0:00 Biochemistry Name Units Result Min Max BUN mg/dl 24 --(----)-* 7 18 Creatinine mg/dl 1.2 --(---*)-- 0.6 1.3 CBC Name Units Result Min Max Hemoglobin g/dl 17.3 --(---*)-- 13.5 17.5 Procedure Procedure Types Cath Procedure Diagnostic Procedure C [facility] w/Coronaries PCI Procedure Coronary Stent Coronary Stent Initial x2 Procedure Description Procedure Date Procedure Date: 09/15/2018 Procedure Start Time: 12:22 Procedure End Time: 12:43 Procedure Staff Name Function Nakul Stewart MD Performing Physician Shreyas Hand RT Monitor Iggy Saucedo RN Nurse Reba Mathur RT Scrub Procedure Data Cath Procedure Fluoroscopy Diagnostic fluoroscopy Total fluoroscopy Time: 5.7 time: 5.7 min min Diagnostic fluoroscopy Total fluoroscopy dose: dose: 1143 mGy 1143 mGy Contrast Material Contrast Material Type Amount (ml) Isovue 300 98 Entry Location Entry Primary Successful Side Size Upsize Upsize Entry Closure [place] ccessful Closure Location (Fr) 1 (Fr) 2 (Fr) Remarks Device Remarks Radial Right 6 Fr Mechanical artery Short Compression Estimated blood loss: 10 ml Diagnostic catheters Device Type Used For End Catheter Placement DIAGNOSTIC [place] 110cm 5 Procedure Fr catheter ([id number]) Procedure Medications Medication Administration Route Dosage 0.9% NaCl I.V. 100 ml/hr Oxygen etCO2 Nasal cannula 2 l/min Heparin Flush Bag added to field 2 bags (1000units/500ml NS) Lidocaine 2% added to field 20 Radial Cocktail added to field 1 syringe (Verapomil 2mg/Nitro 400mcg/Heparin 1500units) Versed I.V. 2 mg Fentanyl I.V. 100 mcg Versed I.V. 2 mg Radial Cocktail I.A. 1 syringe (Verapomil 2mg/Nitro 400mcg/Heparin 1500units) Heparin Bolus I.V. 4000 units Integrilin (Bolus I.V. 10.2 ml 2mg/ml) Integrilin (Bolus wasted 9.8 ml 2mg/ml) Plavix P.O. 600 mg Hemodynamics Rest HGB: 17.3 (g/dl) Heart Rate: 73 (bpm) Pressure Samples Time Site Value (mmHg) Purpose Heart Use Rate(bpm) 12:24 LV 76/9,17 Snapshot 71 Snapshots Pre Cath Intra NCS Post Cath Vital Signs Time Heart Resp SPO2 etCO2 NIBP (mmHg) Rhythm Pain Sedation Rate (ipm) (%) (mmHg) Status Level (bpm) 11:59:43 80 14 0 146/85(111) NSR 0 (11) 10(A) , No pain 12:03:57 83 14 93 0 150/86(105) NSR 0 (11) 10(A) , No pain 12:08:15 73 16 88 0 126/78(91) NSR 0 (11) 10(A) , No pain 12:12:25 65 13 86 32.1 122/74(98) NSR 0 (11) 10(A) , No pain 12:16:33 69 11 92 10.4 107/71(97) NSR 0 (11) 10(A) , No pain 12:20:35 58 14 90 14.9 123/74(99) NSR 0 (11) 10(A) , No pain 12:24:45 71 15 91 34.3 137/67(97) NSR 0 (11) 10(A) , No pain 12:29:01 75 15 87 12.6 112/64(92) NSR 0 (11) 10(A) , No pain 12:33:06 75 13 90 29.8 103/68(82) NSR 0 (11) 10(A) , No pain 12:37:08 72 14 89 29.8 113/68(93) NSR 0 (11) 10(A) , No pain 12:41:10 68 13 94 35 131/80(94) NSR 0 (11) 10(A) , No pain Medications Time Medication Route Dose Verified Delivered Reason Not es Effectiveness by by 12:06:02 0.9% NaCl I.V. 100 Iggy Iggy Per physician ml/hr Sheryl Saucedo RN RN 12:06:14 Oxygen etCO2 2 l/min Iggy Iggy Per physician Nasal Sheryl Saucedo cannula RN RN 12:06:26 Heparin Flush added 2 bags Iggy Iggy used for Bag to Sheryl Saucedo procedure (1000units/500ml field RN RN NS) 12:06:38 Lidocaine 2% added 20ml Iggy Iggy for local to vial Lorigan Lorarlyn anesthetic field RN RN 12:06:51 Radial Cocktail added 1 Iggy Iggy used for (Verapomil to syringe Sheryl Saucedo procedure 2mg/Nitro field RN RN 400mcg/Heparin 1500units) 12:18:52 Versed I.V. 2 mg Iggy Iggy for sedation Sheryl Saucedo RN RN 12:19:02 Fentanyl I.V. 100 mcg Iggy Iggy for sedation Sheryl Saucedo RN RN 12:22:58 Versed I.V. 2 mg Iggy Iggy for sedation Sheryl Saucedo RN RN 12:23:10 Radial Cocktail I.A. 1 Iggy Nakul for (Verapomil syringe Sheryl Stewart MD vasodilation 2mg/Nitro RN 400mcg/Heparin 1500units) 12:30:19 Heparin Bolus I.V. 4000 Iggy Iggy for units Sheryl Saucedo anticoagulation RN RN 12:30:35 Integrilin I.V. 10.2 ml Iggy Iggy for (Bolus 2mg/ml) Sheryl Saucedo antiplatelet RN RN therapy 12:30:46 Integrilin wasted 9.8 ml Iggy Iggy to sharp's (Bolus 2mg/ml) Sheryl Sauceod RN RN 12:38:55 Plavix P.O. 600 mg Iggy Iggy for Sheryl Saucedo antiplatelet RN RN therapy Procedure Log Time Note 11:31:25 Informed consent obtained and on chart 11:31:33 Diagnostic Cath Status : Elective 11:48:04 Iggy Saucedo RN sent for patient. Start room use. 11:48:06 Time tracking: Regular hours (M-F 7:00 - 5:00) 11:48:18 Plan of Care:Hemodynamics will remain stable., Cardiac rhythm will remain stable., Comfort level will be maintained., Respiratory function will remain adequate., Patient/ family verbilizes understanding of procedure., Procedure tolerated without complication., Recovers from procedure without complications.. 11:53:43 Patient received from ICU to CCL 2 Alert and oriented. Tansferred to table in Supine position. 11:53:44 Warm blankets applied, and nando hugger turned on for patient comfort. 11:53:44 Correct patient and procedure confirmed by team. 11:53:45 ECG and BP/O2 sat monitors applied to patient. 11:58:40 Vital chart was started 11:58:41 Baseline sample Acquired. 11:58:45 Rhythm: sinus rhythm 11:58:47 Full Disclosure recording started 11:58:54 H&P Date Dictated: 09/15/2018 New H&P dictated by physician.. 11:59:01 Pre-procedure instructions explained to patient. 11:59:01 Pre-op teaching completed and patient verbalized understanding. 11:59:02 Family in waiting room. 11:59:04 Patient NPO since Midnight. 12:00:23 Is the patient allergic to Iodine/contrast media? No. 12:00:25 Was the patient premedicated? No 12:00:26 Is patient on blood thinner?No 12:00:27 Patient diabetic? No. 12:00:30 Previous problem with sedation/anesthesia? No ? 12:00:32 Snore? No 12:00:33 Sleep apnea? No 12:00:34 Deviated septum? No 12:00:35 Opens mouth fully? Yes 12:00:36 Sticks out tongue? Yes 12:00:38 Airway obstruction? No ? 12:00:40 Dentures? No ? 12:00:44 Pre procedure: right dorsailis pedis pulse 2+ Normal; easily identifiable; not easily obliterated 12:00:47 Pre procedure: left dorsailis pedis pulse 2+ Normal; easily identifiable; not easily obliterated 12:00:50 Patient pain scale 0/10 ?. 12:00:58 IV patent on arrival in left forearm with 0.9% NaCl at [facility]. 12:01:00 Lab results completed and on chart. 12:01:08 Right Radial & Right Groin area was prepped with chlora-prep and draped in sterile fashion 12:01:09 Alarms reviewed by R. N. 12:01:10 Sharps counted by scrub and verified by R.N. 12:05:36 Lab Result : BUN 24 mg/dl 12:05:36 Lab Result : Creatinine 1.2 mg/dl 12:05:36 Lab Result : Hemoglobin 17.3 g/dl 12:06:02 0.9% NaCl 100 ml/hr I.V. was administered by Iggy Saucedo RN; Per physician; 12:06:14 Oxygen 2 l/min etCO2 Nasal cannula was administered by Iggy Saucedo RN; Per physician; 12:06:26 Heparin Flush Bag (1000units/500ml NS) 2 bags added to field was administered by Iggy Saucedo RN; used for procedure; 12:06:38 Lidocaine 2% 20ml vial added to field was administered by Iggy Saucedo RN; for local anesthetic; 12:06:51 Radial Cocktail (Verapomil 2mg/Nitro 400mcg/Heparin 1500units) 1 syringe added to field was administered by Iggy Saucedo RN; used for procedure; 12:13:48 Use device set Radial Dx or PCI 12:13:50 ACIST Syringe (18295) opened to sterile field. 12:13:52 Medline Cath Pack ([id number]) opened to sterile field. 12:13:53 Bag Decanter (2002S) opened to sterile field. 12:13:54 DIAGNOSTIC WIRE .035 260cm J wire (731578) opened to sterile field. 12:13:55 ACIST Hand Control (31489) opened to sterile field. 12:13:56 ACIST Manifold (71545) opened to sterile field. 12:13:57 Tegaderm 4 x 4 (1626W) opened to sterile field. 12:14:08 MBrace Wrist Support ([id number]) opened to sterile field. 12:14:13 TR BAND Standard ([id number]) opened to sterile field. 12::17 SHEATH 6FR Slender (08-2800) opened to sterile field. 12:: Physician arrived : --------ALL STOP TIME OUT------ Final Timeout: patient, procedure, and site verified with staff and physician. All members of the team are in agreement. 12:: Right Radial & Right Groin site verified by team. 12:: Physical assessment completed. ASA score P 2 - A patient with mild systemic disease as per Nakul Stewart MD. 12::38 Sedation plan: IV Moderate Sedation Medication:Versed, Fentanyl 12:18:52 Versed 2 mg I.V. was administered by Iggy Saucedo RN; for sedation; 12:19:02 Fentanyl 100 mcg I.V. was administered by Iggy Saucedo RN; for sedation; 12::22 Procedure started. 12:22:37 Local anesthetic to right radial artery with Lidocaine 2% by Nakul Stewart MD.INITIAL ACCESS ONLY 12::58 Versed 2 mg I.V. was administered by Iggy Saucedo RN; for sedation; 12:23:10 Radial Cocktail (Verapomil 2mg/Nitro 400mcg/Heparin 1500units) 1 syringe I.A. was administered by Nakul Stewart MD; for vasodilation; 12:23:12 A 6 Fr Short sheath was inserted into the Right Radial artery 12:23:26 A DIAGNOSTIC [place] 110cm 5 Fr catheter (486114) was advanced over the wire and used for Procedure. 12:24:15 Zero performed for pressure channel P1 12::58 LV gram done using SANTIAGO 12:25:03 EF : 55 % 12:25:05 LV hemodynamics recorded. 12:25:28 RCA angiography performed. 12::38 Catheter removed. 12:: GUIDE 6FR XBLAD 3.5 catheter ([id number]) opened to sterile field. 12::27 CHOICE PT Extra Support 182cm wire ([id number]) opened to sterile field. 12:27:29 INFLATOR Merit KarenCompak (LF0267) opened to sterile field. 12:27:48 6 Fr XBLAD 3.5 guide catheter was inserted over the wire 12:28:31 LCA angiography performed. 12:28:54 Proceeding to intervention. 12:30:19 Heparin Bolus 4000 units I.V. was administered by Iggy Saucedo RN; for anticoagulation; 12:30:20 CHOICE wire advanced. 12:30:34 Wire advanced across lesion. 12:30:35 Integrilin (Bolus 2mg/ml) 10.2 ml I.V. was administered by Iggy Saucedo RN; for antiplatelet therapy; 12:30:41 LAD 12:30:46 Integrilin (Bolus 2mg/ml) 9.8 ml wasted was administered by Iggy Saucedo RN; to sharp's; 12:31:35 Inflate balloon Inflation number: 1 A EUPHORA 2.5 x 15 Balloon ([id number]) was prepped and advanced across the Prox LAD, then inflated to 13 KAREN for 0:10 (min:sec). 12::47 Inflation number: 2 The EUPHORA 2.5 x 15 Balloon ([id number]) was reinflated across the Prox LAD, to 15 KAREN for 0:10 (min:sec). 12:31:55 Balloon removed over the wire. 12:33:25 Place stent Inflation Number: 3 A INTEGRITY RX 3.0 x 26 stent ([id number]) was prepped and advanced across the Prox LAD. The stent was deployed at 17 KAREN for 0:10 (min:sec). 12:33:46 Stent catheter was removed intact over wire. 12:33:53 Wire redirected to OM. 12:34:10 Procedure type changed to Cath procedure, Diagnostic procedure, LHC, LHC w/Coronaries, PCI procedure, Coronary Stent, Coronary Stent Initial x2 12:36:54 Place stent Inflation Number: 1 A INTEGRITY RX 3.0 x 09 stent ([id number]) was prepped and advanced across the 1st Ob Natalee. The stent was deployed at 17 KAREN for 0:10 (min:sec). 12:37:11 Stent catheter was removed intact over wire. 12:37:12 Wire removed. 12:37:13 Guide catheter removed. 12:38:19 Sheath removed intact; hemostasis achieved with Mechanical Compression to the Right Radial artery. 12:38:23 Procedure ended.(Physican Out) 12:38:36 Fluoroscopy time 05.70 minutes. 12:38:49 Fluoroscopy dose: 1143 mGy 12:38:49 Flurop Dose total: 1143 12:38:55 Plavix 600 mg P.O. was administered by Iggy Saucedo RN; for antiplatelet therapy; 12:39:20 Contrast amount:Isovue 300 98ml. 12:39:22 Sharps counted by scrub and verified by R.N. 12:39:53 TR band inflated with 11cc of air. 12:40:00 Insertion/operative site no bleeding no hematoma. 12:40:05 Post right radial artery:stable 12:40:28 Post-procedure physical assessment completed. ASA score P 2 - A patient with mild systemic disease as per Nakul Stewart MD. 12:40:32 Post procedure rhythm: sinus rhythm 12:40:38 Estimated blood loss: 10 ml 12:40:39 Post procedure instruction explained to patient.Patient verbalizes understanding. 12:40:40 Patient needs reinforcement of post procedure teaching. 12:40:43 Procedure and supply charges have been captured, reviewed, submitted and are correct. 12:43:27 Vital chart was stopped 12:43:28 See physician's report for complete and final results. 12:43:30 Report given to ICU. 12:43:44 Patient transfered to ICU with Bed. 12:43:46 Procedure ended. 12:43:46 Full Disclosure recording stopped 12:43:50 End room use (Document Last) Intervention Summary Intervention Notes Time ActionType Lesion and Equipment Action# Pressure Duration Attributes Used 12:31:35 Inflate Prox LAD EUPHORA 2.5 1 13 00:10 balloon x 15 Balloon ([id number]) 12:31:47 Reinflate Prox LAD EUPHORA 2.5 2 15 00:10 balloon x 15 Balloon ([id number]) 12:33:25 Place stent Prox LAD INTEGRITY RX 3 17 00:10 3.0 x 26 stent ([id number]) 12:36:54 Place stent 1st Ob Natalee INTEGRITY RX 1 17 00:10 3.0 x 09 stent ([id number]) Device Usage Item Name Manufacture Quantity Catalog Number Hospital Part Current Mini [facility] Lot# / Charge Number Stock Stock Serial# Code ACIST Acist 1 28321 329009 270620 105870 20 Syringe Medical (07511) Systems Inc Medline Cath Medline 1 [id number] 127306 61018 972454 5 Pack ([id number]) Bag Decanter Microtek 1 2001S 570901 98775 154702 5 (2001S) Medical Inc. DIAGNOSTIC St Will 1 085827 245262 553049 938826 30 WIRE .035 260cm J wire (585671) ACIST Hand Acist 1 42785 403852 920947 374250 5 Control Medical (57804) Systems Inc ACIST Acist 1 41282 305885 996178 902492 5 Manifold Medical (23288) Systems Inc Tegaderm 4 x 3M 1 1626W 365279 362537 186053 5 4 (1626W) MBrace Wrist Advanced 1 140-0250-00 890559 69586 814969 5 Support Vascular (471822848) Dynamics TR BAND Terumo 1 [id number] 167456 828225 307919 40 Standard (CVG05BVQ) SHEATH 6FR Terumo 1 [id number] 477610 297316 398967 5 Slender (80-1060) DIAGNOSTIC Terumo 1 40-5013 105302 035358 908513 5 [place] 110cm 5 Fr catheter (976550) GUIDE 6FR Cardinal 1 [id number] 450699 189962 421532 10 XBLAD 3.5 Health catheter (50416328) CHOICE PT Farber 1 [id number] 486677 119358 663854 5 Extra Scientific Support 182cm wire ([id number]) INFLATOR Merit 1 YJ6587 719920 580464 445360 15 [facility] Medical BasixCompak (PY3969) EUPHORA 2.5 Medtronic 1 [id number] 155036 672191 305353 5 [id number] x 15 Balloon (HSX7838Q) INTEGRITY RX Medtronic 1 [id number] 421928 022562 382855 5 [id number] 3.0 x 26 stent ([id number]) INTEGRITY RX Medtronic 1 [id number] 239867 345420 862577 5 [id number] 3.0 x 09 stent ([id number]) Signature Audit [place] Stage Time Signature Unsigned Intra-Procedure 09/15/2018 Shreyas Hand 12:45:15 PM RT(R) (CV) Signatures Monitor : Shreyas Hand RT Signature : Date : Time : [place] [id number] [facility] [place] [address]
[~2018-09-14 13:15] MED LIST changes: +ASPIRIN81 MG PO
[2018-09-14 13:33] LABS: BASOPHILS 0.4 % (0-2); EOSINOPHILS 1.1 % (0-7); HEMATOCRIT 51.1 % (42.0-54.0); HEMOGLOBIN 17.3 g/dL (13.5-17.5); IMMATURE GRANULOCYTES 1.8 % (0-5); LYMPHOCYTES 31.4 % (15-50); MCH 31.1 pg (26.0-34.0); MCHC 33.9 g/dL (31.0-37.0); MCV 91.9 fL (80.0-100.0); MEAN PLATELET VOLUME 10.5 fL (7.4-10.4); MONOCYTES 7.5 % (2-11); NEUTROPHILS 57.8 % (40-80); PLATELET COUNT 218 10x3/uL (130-400); RBC 5.56 10x6/uL (4.20-6.10); RDW 13.5 % (11.5-14.5); WBC 12.2 10x3/uL (4.8-10.8)
[2018-09-14 13:55] LABS: APTT 27.4 SECONDS (22.8-39.4)
[2018-09-14 13:56] LABS: INR 1.03 (0.85-1.17)
[2018-09-14 13:58] LABS: ALKALINE PHOSPHATASE 68 U/L (46-116); ALT (SGPT) 64 U/L (10-68); BILIRUBIN - TOTAL 0.66 mg/dL (0.2-1.3); CALC OSMOLALITY 289 mosm/kg (275-300); CALCIUM 9.9 mg/dL (8.5-10.1); CARBON DIOXIDE 20.3 mmol/L (21.0-32.0); CHLORIDE - SERUM 104 mmol/L (98-107); CREATININE - SERUM 1.6 mg/dL (0.6-1.3); PROTEIN - SERUM 7.5 g/dL (6.4-8.2); SODIUM 141 mmol/L (136-145); UREA NITROGEN 28 mg/dL (7-18); eGFR NON AFRICAN AMERICAN 46 mL/min (90-120)
[2018-09-14 14:00] LABS: GLUCOSE 158 mg/dL (74-106)
[2018-09-14 14:04] LABS: CKMB 2.6 U/L (0.0-3.6); CREATINE KINASE 183 UL (21-232); PRO BNP 60 pg/mL (0-125)
[2018-09-14 14:05] LABS: TROPONIN-I < 0.017 ng/mL (0.000-0.060)
[2018-09-14 16:11] LABS: CKMB 16.1 U/L (0.0-3.6)
[2018-09-14 16:13] LABS: CREATINE KINASE 295 UL (21-232)
[2018-09-14 16:15] LABS: TROPONIN-I 1.462 ng/mL (0.000-0.060)
--- NOTE | 2018-09-14 16:53 | NUR ---
CUSTOMER RELATIONS ADVISOR CALLED AND CHANGED PT TO ICU, ROOM 2306, REPORT CALLED TO KOTA PARDO
--- NOTE | 2018-09-14 17:28 | NUR ---
PT ARRIVED TO UNIT IN WHEEL CHAIR WITH ER STAFF. A&OX4. REPORTS DISCOMFORT ON HIS CHEST. BP 161/94, HR 84, O2 SAT 94% ON RA, RR 15. HAS L-FOREARM SL. ORDERS REVIEWED. MORPHINE GIVEN FOR DISCOMFORT. HEPARIN DRIP INITIATED AT 1000 UNITS/HR. NO SKIN ISSUES NOTED AT THIS TIME. CONNECTED TO SENIOR BI DEVELOPER. LUNGS CLEAR THROUGH OUT. PT ABLE TO AMBULATE INDEPENDENTLY. URINAL PROVIDED. OFFERED FOOD AT THIS TIME. HE REFUSED. HE STATED THAT HE WASN'T HUNGRY. SAFETY MEASURES IN PLACE. WILL CONTINUE TO MONITOR.
--- NOTE | 2018-09-14 19:33 | NUR ---
REPORT RECEIVED, PT ASSESSMENT COMPLETE PER FLOW SHEET, NO ACUTE DISTRESS NOTED, PT AAOx4, PPP, DENIES PAIN, VSS, HEPRIN INFUSING PER ORDERS, NO NEEDS STATED AT THIS TIME WILL CONTINUE TO ASSESS
--- NOTE | 2018-09-14 21:00 | NUR ---
PT RESTING IN BED, C/O CHEST SORENESS GENERALIZED LOCATION, DENIES OTHER NEEDS OR PAINS, VSS JUAN RAMON;L CONTINE TO MONITOR, REPOSITIONED FOR COMFORT, PT AAOx4, WILL CONTINUE TO ASSESS
[2018-09-14 22:27] LABS: CKMB 36.9 U/L (0.0-3.6)
[2018-09-14 22:28] LABS: CREATINE KINASE 500 UL (21-232); TROPONIN-I 7.815 ng/mL (0.000-0.060)
--- NOTE | 2018-09-14 23:00 | NUR ---
REASSESSMENT COMPLETED, NO ACUTE DIOSTRESS NOTED, PT CONTINUES TO C/O SORE CHEST, NO NEEDS AT THIS TIME, REPOSITIONED, HOB ELEVATED, DENIES NEEDS AT THIS TIME, WILL CONTINUE TO MONITOR
[2018-09-15] VITALS (12 sets, daily range): BP systolic 100–1141; BP diastolic 64–88; Ht 185.4 cm; Wt 110.5 kg
[2018-09-15 00:49] LABS: HEMOGLOBIN 15.1 g/dL (13.5-17.5); MCHC 33.6 g/dL (31.0-37.0); MCV 92.4 fL (80.0-100.0); MEAN PLATELET VOLUME 10.4 fL (7.4-10.4); RBC 4.87 10x6/uL (4.20-6.10); RDW 13.7 % (11.5-14.5); WBC 9.5 10x3/uL (4.8-10.8)
--- NOTE | 2018-09-15 03:00 | NUR ---
PT RESTING COMFORTABLY, ASSESSMENT COMPLETED, NO ACUTE CHANGES OR DISTRESS NOTED, REPOSITIONED FOR COMFORT, VSS WILL CONT TO ASSESS
[2018-09-15 04:24] LABS: CHLORIDE - SERUM 105 mmol/L (98-107); CKMB 30.3 U/L (0.0-3.6); CREATINE KINASE 459 UL (21-232); CREATININE - SERUM 1.2 mg/dL (0.6-1.3); POTASSIUM - SERUM 4.1 mmol/L (3.5-5.1); SODIUM 141 mmol/L (136-145); UREA NITROGEN 24 mg/dL (7-18); eGFR NON AFRICAN AMERICAN 64 mL/min (90-120)
[2018-09-15 04:29] LABS: CALC OSMOLALITY 284 mosm/kg (275-300); CARBON DIOXIDE 25.6 mmol/L (21.0-32.0); GLUCOSE 102 mg/dL (74-106)
--- NOTE | 2018-09-15 05:53 | NUR ---
CALLED TO VERIFY SURGERY TIME, NO ANSWER, WILL INFORM ONCOMING RN,
--- NOTE | 2018-09-15 07:20 | NUR ---
SHIFT REPORT RECEIVED. AA&0X4. VSS. NO FEVER. REPORTS SORENESS ON CHEST. ON ROOM AIR. LEFT FOREARM PIV WITH HEPARIN INFUSING AT 1100 UNITS/HR. LUNGS CLEAR, BS ACTIVE X 4Q. USES URINAL. 150ML OF CONCENTRATED URINE NOTED. NPO FOR SCHEDULED CATH PROCEDURE TODAY. DENIES FURTHER NEEDS. SHIFT ASSESSMENT COMPLETED. WILL CONTINUE TO MONITOR.
--- NOTE | 2018-09-15 09:00 | NUR ---
APTT WAS 57. HEPARIN DRIP INCREASED BY 100 UNITS. CURRENTLY INFUSING AT 1200UNITS. WILL RECHECK IN 6HRS. PT RESTING COMFORTABLY. FAMILY AT BEDSIDE. NO FURTHER NEEDS. JUAN RAMON CONTINUE TO MONITOR.
--- NOTE | 2018-09-15 10:17 | NUR ---
PRE-OP MEDS GIVEN AT THIS TIME PER ORDERS. 200ML OF CONCENTRATED URINE NOTED. WILL CONTINUE TO MONITOR.
--- NOTE | 2018-09-15 11:51 | NUR ---
TAKEN TO CATH PROCEDURE AT THIS TIME.
--- NOTE | 2018-09-15 12:43 | NUR ---
KATIA CHAVEZ, PT'S , NOTIFIED THAT PT WOULD BE RETURNING TO ROOM FROM CATH PROCEDURE SOON. SHE WENT HOME TO EAT LUNCH. SHE WILL BE BACK SOON SHE CAN.
[2018-09-15] MEDS ORDERED: PLAVIX75 MG PO (13:10)
--- NOTE | 2018-09-15 13:15 | NUR ---
PATIENT AWAKE, EATING TURKEY SANDWICH AND DRINKING SODA. NO N/V. RIGHT TR BAND IN PLACE, NO S/S OF BLEEDING OR HEMATOMA. VSS ON 2L NASAL CANNULA.
--- NOTE | 2018-09-15 13:45 | NUR ---
PATIENT AWAKE, VSS ON 2L NC. RIGHT TR BAND IN PLACE, NO S/S OF BLEEDING OR HEMATOMA.
--- NOTE | 2018-09-15 14:15 | NUR ---
PATIENT INTERMITTENTLY RESTING. VSS ON 2L NASAL CANNULA. RIGHT TR BAND IN PLACE, NO S/S OF BLEEDING OR HEMATOMA. FAMILY PRESENT AT BEDSIDE.
--- NOTE | 2018-09-15 14:45 | NUR ---
PATIENT RESTING. VSS ON 2L NC. RIGHT TR BAND IN PLACE, NO S/S OF BLEEDING OR HEMATOMA. PHYSICIAN UPDATED FAMILY AND PATIENT.
--- NOTE | 2018-09-15 15:15 | NUR ---
PATIENT RESTING, VSS ON ROOM AIR. RIGHT TR BAND IN PLACE, NO S/S OF BLEEDING OR HEMATOMA. NO N/V. NO C/O PAIN, NUMBNESS, OR TINGLING.
--- NOTE | 2018-09-15 15:45 | NUR ---
BEGIN AIR REMOVAL PROTOCOL FOR TR BAND, NO S/S OF BLEEDING OR HEMATOMA NOTED. VSS ON ROOM AIR.
--- NOTE | 2018-09-15 16:15 | NUR ---
AIR REMOVED FROM TR BAND, DRESSING APPLIED. NO S/S OF BLEEDING OR HEMATOMA. VSS ON ROOM AIR. IV REMOVED.
--- NOTE | 2018-09-15 16:45 | NUR ---
EDUCATION GIVEN TO PATIENT AND SPOUSE REGARDING DISCHARGE INSTRUCTIONS AND MEDICATIONS, ALL QUESTIONS ANSWERED. PATIENT VOIDED PER URINAL WITH NO DIFFICULTIES. PATIENT TRANSPORTED VIA WHEELCHAIR TO CAR WITH SPOUSE DRIVING, ALL BELONGINGS WITH PATIENT.
--- NOTE | 2018-09-19 12:11 | DS ---
PATIENT:MILADYS CHAVEZ :48 MEDICAL RECORD: [id number] DISCHARGE SUMMARY ADMISSION DATE: 09/14/18 DISCHARGE DATE: 09/15/18 DATE OF SERVICE: 09/15/2018. DIAGNOSES: 1. Percutaneous transluminal coronary angioplasty stent left anterior descending and circumflex this admission. 2. Coronary artery disease. 3. Angina. 4. Syncope. 5. Status post ventricular fibrillation arrest. 6. Hypertension. HISTORY: This is a gentleman who presents with syncope, was found to have ventricular fibrillation in the ambulance, underwent cardiac catheterization revealing 99% stenosis of the LAD and 80% stenosis of the circumflex, underwent successful PTCA stent of both of these territories. He as well had concomitant disease of the RCA, was discharged home with the addition of Plavix to his medical regimen. Beta blockade was not undertaken secondary to bradycardia. Statin was not undertaken secondary to previous intolerance to statin, but did have the addition of aspirin and Plavix to his medical regimen. He will follow up with [facility] later in the week for PTCA stent of the RCA. TRANSINT:[id number] Voice Confirmation ID: [id number] DOCUMENT ID: [id number] LAURA YING MD at 1211 CC: [id number] DICTATION DATE: 09/15/18 1251 WOOL WASHER FEEDER: 09/16/18 0046 DIS IN 09/15/18 [place] [address] [place] [address]
--- NOTE | 2018-09-19 12:11 | OP ---
PATIENT NAME: MILADYS CHAVEZ MEDICAL RECORD: [id number] :48 LOCATION:[facility] ADMISSION DATE:09/14/18 SURGEON: LAURA YING MD DATE OF OPERATION: 09/15/2018 PROCEDURES: 1. PTCA and stent LAD. 2. PTCA and stent, left circumflex first obtuse marginal. 3. Left heart catheterization. 4. Selective coronary angiography. 5. Left ventriculogram. INDICATION: Non-Q-wave myocardial infarction, angina. PROCEDURE IN DETAIL: After informed consent was obtained with detailed description of risks and benefits as well as alternative therapies, the patient elected to proceed with angiogram and angioplasty. The right radial area was prepped and draped in normal sterile fashion. The right radial artery was cannulated via modified Seldinger technique with placement of 6-Scottish sheath. All catheters were exchanged through this sheath. FINDINGS: Left ventriculogram performed in standard 30-degree SANTIAGO view reveals good cardiac wall motion throughout all segments. Overall ejection fraction estimated at 60%. SELECTIVE CORONARY ANGIOGRAPHY: 1. Left main is with no significant angiographic disease. 2. Left anterior descending has 99% stenosis proximally. 3. Left circumflex has first obtuse marginal that has a previously placed stent. The stent is widely patent; however, there is 80% to 85% stenosis at the ostium prior to the stent. 4. Right coronary has 85% to 90% stenosis distally. PTCA AND STENT OF THE LAD: The stent used was 3.0 x 30 Integrity. Result was 0% residual stenosis. PTCA AND STENT OF THE CIRCUMFLEX FIRST OBTUSE MARGINAL: The stent used was 3.0 x 8-mm Integrity. Result was 0% residual stenosis. OVERALL IMPRESSION: Successful PTCA and stent of LAD and circumflex, going from 80% to 95% initial stenosis to 0% residual. Plan for PTCA and stent of the RCA in the near future. TRANSINT:[id number] Voice Confirmation ID: [id number] DOCUMENT ID: [id number] LAURA YING MD at 1211 CC: [id number] DICTATION DATE: 09/15/18 1243 MORTGAGE SALES MANAGER: 09/15/181909 DIS IN 09/15/18 [facility] [address] [place] [address]
== END 2018-09-15 16:45 | disposition home or self-care (01) | DRG 249 ==
LOC: D.ER 13:15 → D.EDHOLD 15:16 → OBSVTIME 15:16 → D.M2 15:59 → D.ICU 16:49 → D.CLR 09-15 13:10
PROVIDERS: Family Medicine; Internal Medicine Interventional Cardiology; ADMIT Internal Medicine Cardiovascular Disease
PROC: B2111ZZ Fluoroscopy of Multiple Coronary Arteries using Low Osmolar Contrast (ICD-10-PCS; 2018-09-15)
PROC: B2151ZZ Fluoroscopy of Left Heart using Low Osmolar Contrast (ICD-10-PCS; 2018-09-15)
PROC: 02713EZ Dilation of Coronary Artery, Two Arteries with Two Intraluminal Devices, Percutaneous Approach (ICD-10-PCS; principal; 2018-09-15 11:48)
PROC: 4A023N7 Measurement of Cardiac Sampling and Pressure, Left Heart, Percutaneous Approach (ICD-10-PCS; 2018-09-15 11:48)
DX: I21.4 Non-ST elevation (NSTEMI) myocardial infarction (principal); I25.110 Atherosclerotic heart disease of native coronary artery with unstable angina pectoris; R55 Syncope and collapse; I10 Essential (primary) hypertension; R00.1 Bradycardia, unspecified

== ENCOUNTER 2018-09-19 08:33 | Outpatient (CLI) | payer BC, MEDICARE ==
[~2018-09-19] VITALS: Ht 182.9 cm; Wt 111.4 kg
--- NOTE | ~2018-09-19 | HEMODYNAMI ---
PATIENT:MILADYS CHAVEZ MEDICAL RECORD: [id number] : 48 LOCATION:[facility] ADMISSION DATE: 09/19/18 Generatedon:09/19/201811:24 Patient name: MILADYS CHAVEZ Patient #: [id number] SSN: : Date of study: 09/19/2018 Page: Of Hemodynamic Procedure Report Patient Data Patient Demographics Procedure consent was obtained First Name: MILADYS Gender: Male Last Name: SCOTT : 1950 [facility] Initial: TIA Age: 68 year(s) Patient #: [id number] Race: Additional ID: [id number] Contact details Address: [address] [place] [address] ROAD State: [place] City: [place] Zip code: [address] Past Medical History Allergies: No known allergies Admission Admission Data Admission Date: 09/19/2018 Admission Time: 8:33 Lab Results Lab Result Date: 09/19/2018 Lab Result Time: 0:00 Biochemistry Name Units Result Min Max BUN mg/dl 19 --(----)*- 7 18 Creatinine mg/dl 0.9 --(-*--)-- 0.6 1.3 CBC Name Units Result Min Max Hemoglobin g/dl 15.6 --(--*-)-- 13.5 17.5 Procedure Procedure Types Cath Procedure Diagnostic Procedure Sedation Charges Moderate Sedation up to 15 minutes PCI Procedure Coronary Stent Coronary Stent Initial Procedure Description Procedure Date Procedure Date: 09/19/2018 Procedure Start Time: 11:10 Procedure End Time: 11:22 Procedure Staff Name Function Nakul Stewart MD Performing Physician Cata Claudio RT Monitor Ángel Acosta RN Nurse Chano Lockett RT Scrub Taran Ponce RT Mechanic General Operational Test Procedure Data Cath Procedure Fluoroscopy Diagnostic fluoroscopy Total fluoroscopy Time: 2.7 time: 2.7 min min Diagnostic fluoroscopy Total fluoroscopy dose: 170 dose: 170 mGy mGy Contrast Material Contrast Material Type Amount (ml) Isovue 300 61 Entry Location Entry Primary Successful Side Size Upsize Upsize Entry Closure [place] ccessful Closure Location (Fr) 1 (Fr) 2 (Fr) Remarks Device Remarks Radial Right 6 Fr Mechanical artery Short Compression Estimated blood loss: 10 ml Procedure Complications No complications Procedure Medications Medication Administration Route Dosage Oxygen etCO2 Nasal cannula 2 l/min Lidocaine 2% added to field 20 Heparin Flush Bag added to field 2 bags (1000units/500ml NS) 0.9% NaCl I.V. 100 ml/hr Radial Cocktail I.A. 1 syringe (Verapomil 2mg/Nitro 400mcg/Heparin 1500units) Versed I.V. 2 mg Fentanyl I.V. 100 mcg Versed I.V. 1 mg Fentanyl I.V. 50 mcg Heparin Bolus I.V. 4000 units Hemodynamics Rest HGB: 15.6 (g/dl) Heart Rate: 76 (bpm) Snapshots Pre Cath Intra NCS Post Cath Vital Signs Time Heart Resp SPO2 etCO2 NIBP (mmHg) Rhythm Pain Sedation Rate (ipm) (%) (mmHg) Status Level (bpm) 10:58:03 75 19 96 2.2 145/87(115) NSR 0 (11) 10(A) , No pain 11:02:19 73 16 93 2.2 142/84(119) NSR 0 (11) 10(A) , No pain 11:06:35 72 14 94 0.7 135/77(100) NSR 0 (11) 9(A) , No pain 11:10:45 67 12 92 0 129/84(110) NSR 0 (11) 9(A) , No pain 11:14:53 78 13 93 0 115/79(98) NSR 0 (11) 9(A) , No pain 11:19:11 72 14 94 2.2 136/65(107) NSR 0 (11) 9(A) , No pain 11:22:50 75 14 94 2.2 130/80(115) NSR 0 (11) 10(A) , No pain Medications Time Medication Route Dose Verified Delivered Reason Not es Effectiveness by by 10:58:54 Oxygen etCO2 2 l/min Nakul Neal used for Nasal Pat Acosta egg buyer cannula 10:59:01 Lidocaine 2% added 20ml Nakul Mota for local to vial Pat Stewart MD anesthetic field 10:59:06 Heparin Flush added 2 bags Nakul Mota used for Bag to Pat Stewart MD procedure (1000units/500ml field NS) 10:59:15 0.9% NaCl I.V. 100 Nakul Neal Per physician ml/hr Pat Acosta RN 10:59:24 Radial Cocktail I.A. 1 Nakul Mota for (Verapomil syringe Pat Stewart MD vasodilation 2mg/Nitro 400mcg/Heparin 1500units) 11:03:55 Versed I.V. 2 mg Nakul Buffie for sedation Pat Acosta RN 11:04:02 Fentanyl I.V. 100 mcg Nakul Buffie for sedation Pat Acosta RN 11:10:40 Versed I.V. 1 mg Nakul Sanchezie for sedation Pat Acosta RN 11:10:44 Fentanyl I.V. 50 mcg Nakul Buffie for sedation Pat Acosta RN 11:13:27 Heparin Bolus I.V. 4000 Nakul Buffie for pool ified units Pat Acosta RN anticoagulation with dr stewart Procedure Log Time Note 10:30:11 Taran Ponce RT(R) sent for patient. Start room use. 10:43:18 Time tracking: Regular hours (M-F 7:00 - 5:00) 10:43:22 Plan of Care:Hemodynamics will remain stable., Cardiac rhythm will remain stable., Comfort level will be maintained., Respiratory function will remain adequate., Patient/ family verbilizes understanding of procedure., Procedure tolerated without complication., Recovers from procedure without complications.. 10:51:16 Patient received from Pre/Post Procedure Room to CCL 3 Alert and oriented. Tansferred to table in Supine position. 10:51:17 Warm blankets applied, and nando hugger turned on for patient comfort. 10:51:17 Correct patient and procedure confirmed by team. 10:51:18 Signed procedure consent form obtained from patient. 10:51:19 ECG and BP/O2 sat monitors applied to patient. 10:51:20 Full Disclosure recording started 10:53:02 Pre-procedure instructions explained to patient. 10:53:03 Pre-op teaching completed and patient verbalized understanding. 10:53:04 Family in patients room. 10:53:06 Patient NPO since Midnight. 10:53:12 Patient allergic to No known allergies 10:53:17 Is patient on blood thinner?Yes 10:53:30 PLAVIX TODAY 10:53:33 Patient diabetic? No. 10:53:38 Previous problem with sedation/anesthesia? No ? 10:53:39 Snore? Yes 10:53:40 Sleep apnea? No 10:53:41 Deviated septum? No 10:53:42 Opens mouth fully? Yes 10:53:43 Sticks out tongue? Yes 10:53:46 Airway obstruction? No ? 10:53:49 Dentures? No ? 10:53:53 Modified Coy's test Ulnar < 7 seconds 10:53:56 Patient pain scale 0/10 ?. 10:54:03 IV patent on arrival in left hand with 0.9% NaCl at [facility]. 10:55:17 Lab Result : BUN 19 mg/dl 10:55:17 Lab Result : Creatinine 0.9 mg/dl 10:55:17 Lab Result : Hemoglobin 15.6 g/dl 10:55:20 Lab results completed and on chart. 10:55:23 Right Radial & Right Groin area was prepped with chlora-prep and draped in sterile fashion 10:55:24 Alarms reviewed by R. N. 10:55:24 Sharps counted by scrub and verified by R.N. 10:55:39 Use device set CATH PACK 10:55:40 ACIST Syringe (25057) opened to sterile field. 10:55:41 ACIST Hand Control (15603) opened to sterile field. 10:55:41 ACIST Manifold (26860) opened to sterile field. 10:55:41 Medline Cath Pack ([id number]) opened to sterile field. 10:55:42 Bag Decanter (2002) opened to sterile field. 10:55:42 DIAGNOSTIC WIRE .035 260cm J wire (903427) opened to sterile field. 10:56:16 INFLATOR Merit BasixCompak (RW1992) opened to sterile field. 10:56:16 SHEATH 6FR Slender (80-1060) opened to sterile field. 10:56:17 CHOICE PT Extra Support J 300cm guide wire ([id number]) opened to sterile field. 10:56:44 Rhythm: sinus rhythm 10:56:46 Vital chart was started 10:58:54 Oxygen 2 l/min etCO2 Nasal cannula was administered by Buffie Acosta RN; used for procedure; 10:59:01 Lidocaine 2% 20ml vial added to field was administered by Nakul Stewart MD; for local anesthetic; 10:59:05 Baseline sample Acquired. 10:59:06 Heparin Flush Bag (1000units/500ml NS) 2 bags added to field was administered by Nakul Stewart MD; used for procedure; 10:59:15 0.9% NaCl 100 ml/hr I.V. was administered by Ángel Acosta RN; Per physician; :59:24 Radial Cocktail (Verapomil 2mg/Nitro 400mcg/Heparin 1500units) 1 syringe I.A. was administered by Naklu Stewart MD; for vasodilation; 10:59:24 Use device set TAU PCI 11:02:09 Final Timeout: patient, procedure, and site verified with staff and physician. All members of the team are in agreement. 11:02:13 Right Radial site verified by team. 11:02:29 Fire Safety Assessment: A--An alcohol-based skin anteseptic being used preoperatively., C--Open oxygen or nitrous oxide is being used., D--An ESU, laser, or fiber-optic light is being used. 11:02:33 Physical assessment completed. ASA score P 2 - A patient with mild systemic disease as per Nakul Stewart MD. 11:02:36 Sedation plan: IV Moderate Sedation Medication:Versed, Fentanyl 11:03:44 Zero performed for pressure channel P1 11:03:50 Zero performed for pressure channel P1 11:03:55 Versed 2 mg I.V. was administered by Ángel Acosta RN; for sedation; 11:04:02 Fentanyl 100 mcg I.V. was administered by Ángel Acosta RN; for sedation; 11:10:40 Versed 1 mg I.V. was administered by Ángel Acosta RN; for sedation; 11:10:44 Fentanyl 50 mcg I.V. was administered by Ángel Acosta RN; for sedation; 11:10:49 Procedure started. 11:10:54 Local anesthetic to right radial artery with Lidocaine 2% by Nakul Stewart MD.INITIAL ACCESS ONLY 11:11:04 A 6 Fr Short sheath was inserted into the Right Radial artery 11:11:39 GUIDE 6FR HS II catheter ([id number]) opened to sterile field. 11:12:48 6 Fr HS II guide catheter was inserted over the wire 11:13:27 Heparin Bolus 4000 units I.V. was administered by Ángel Acosta RN; for anticoagulation; verified with dr stewart 11:13:55 Guide Catheter removed. unable to cannulate vessel. 11:14:05 GUIDE 6FR AR 2.0 SH catheter ([id number]) opened to sterile field. 11:14:33 6 Fr AR 2.0 SH guide catheter was inserted over the wire 11:15:34 CHOICE PT ES wire advanced. 11:18:16 Inflate balloon Inflation number: 1 A INTEGRITY RX 2.5 x 18 stent ([id number]) was prepped and advanced across the Dist RCA, then inflated to 13 KAREN for 0:03 (min:sec). 11:18:41 Stent catheter was removed intact over wire. 11:18:42 Wire removed. 11:18:42 Guide catheter removed. 11:18:55 Sheath removed intact; hemostasis achieved with Mechanical Compression to the Right Radial artery. 11:18:56 Procedure ended.(Physican Out) 11:20:17 Fluoroscopy time 02.70 minutes. 11:20:23 Flurop Dose total: 170 11:20:23 Fluoroscopy dose: 170 mGy 11:20:27 Contrast amount:Isovue 300 61ml. 11:20:29 Sharps counted by scrub and verified by R.N. 11:20:32 TR band inflated with 12cc of air. 11:20:33 Insertion/operative site no bleeding no hematoma. 11:20:39 Post right radial artery:stable, clean and dry 11:20:40 Post Procedure Pulses reassessed and unchanged 11:20:42 Post-procedure physical assessment completed. ASA score P 2 - A patient with mild systemic disease as per Nakul Stewart MD. 11:20:44 Post procedure rhythm: unchanged. 11:20:46 Estimated blood loss: 10 ml 11:20:47 Post procedure instruction explained to patient.Patient verbalizes understanding. 11:20:48 Patient needs reinforcement of post procedure teaching. 11:21:11 Procedure type changed to Cath procedure, Diagnostic procedure, Sedation Charges, Moderate Sedation up to 15 minutes, PCI procedure, Coronary Stent, Coronary Stent Initial 11:21:16 Procedure Complication : No complications 11:21:29 See physician's report for complete and final results. 11:21:51 TR BAND Standard ([id number]) opened to sterile field. 11:22:28 Procedure and supply charges have been captured, reviewed, submitted and are correct. 11:22:28 Vital chart was stopped 11:22:30 Report given to Pre/Post Procedure Room. 11:22:41 Patient transfered to Pre/Post Procedure Room with Stretcher. 11:22:53 Procedure ended. 11:22:53 Full Disclosure recording stopped 11:22:56 End room use (Document Last) Intervention Summary Intervention Notes Time ActionType Lesion and Equipment Action# Pressure Duration Attributes Used 11:18:16 Inflate Dist RCA INTEGRITY RX 1 13 00:04 balloon 2.5 x 18 stent ([id number]) Device Usage Item Name Manufacture Quantity Catalog Number Hospital Part Current Mini mal Lot# / Charge Number Stock Stock Serial# Code ACIST Acist 1 97327 535891 619476 351456 20 Syringe Medical (77877) Systems Inc ACIST Hand Acist 1 84745 923485 387378 441920 5 Control Medical (61772) Systems Inc ACIST Acist 1 56659 346983 616839 119892 5 Manifold Medical (46894) Systems Inc Medline Cath Medline 1 [id number] 117405 85100 072328 5 Pack ([id number]) Bag Decanter Microtek 1 2001S 595054 92164 353653 5 (2001S) Medical Inc. DIAGNOSTIC St Will 1 175885 588618 404592 044985 30 WIRE .035 260cm J wire (988332) INFLATOR Similarity Systems 1 WB2695 825941 030775 669075 15 Similarity Systems Medical BasixCompak (IW5844) SHEATH 6FR Terumo 1 [id number] 738996 108409 213494 5 Slender (80-1060) CHOICE PT [place] 1 [id number] 423550 284778 528224 5 Extra Scientific Support J 300cm guide wire ([id number]) GUIDE 6FR HS Medtronic 1 [id number] 237658 11754 500427 1 II catheter (HW5UVEB) GUIDE 6FR AR Medtronic 1 [id number] 148032 53356 042539 1 2.0 SH catheter ([id number]) INTEGRITY RX Medtronic 1 [id number] 352470 787183 701595 5 [id number] 2.5 x 18 stent ([id number]) TR BAND Terumo 1 INQ69-[id number] 305032 827980 198383 40 Standard ([id number]) Signature Audit [place] Stage Time Signature Unsigned Intra-Procedure 09/19/2018 Cata 11:24:31 AM Counts RT(R) Signatures Monitor : Cata Signature : Counts RT Date : Time : [place] [id number] [place] [id number]
[2018-09-19 09:04] VITALS: BP 161/93; Ht 182.9 cm; Wt 111.4 kg
[2018-09-19 09:29] LABS: CALC OSMOLALITY 282 mosm/kg (275-300); CALCIUM 8.7 mg/dL (8.5-10.1); CARBON DIOXIDE 22.5 mmol/L (21.0-32.0); CHLORIDE - SERUM 106 mmol/L (98-107); CREATININE - SERUM 0.9 mg/dL (0.6-1.3); GLUCOSE 95 mg/dL (74-106); POTASSIUM - SERUM 3.8 mmol/L (3.5-5.1); SODIUM 141 mmol/L (136-145); UREA NITROGEN 19 mg/dL (7-18); eGFR NON AFRICAN AMERICAN 89 mL/min (90-120)
[2018-09-19 10:35] LABS: BASOPHILS 0.7 % (0-2); EOSINOPHILS 4.9 % (0-7); HEMATOCRIT 45.8 % (42.0-54.0); HEMOGLOBIN 15.6 g/dL (13.5-17.5); IMMATURE GRANULOCYTES 0.6 % (0-5); LYMPHOCYTES 13.2 % (15-50); MCH 30.8 pg (26.0-34.0); MCHC 34.1 g/dL (31.0-37.0); MCV 90.5 fL (80.0-100.0); MEAN PLATELET VOLUME 10.4 fL (7.4-10.4); MONOCYTES 12.6 % (2-11); PLATELET COUNT 154 10x3/uL (130-400); RBC 5.06 10x6/uL (4.20-6.10); RDW 13.7 % (11.5-14.5); WBC 6.7 10x3/uL (4.8-10.8)
--- NOTE | 2018-09-19 11:39 | NUR ---
RECEIVED PT FROM SENIOR FUNCTIONAL ANALYST, PT IS ALERT, DENIES ANY C/O. TR BAND CDI TO RIGHT WRIST, NO BLEEDING OR HEMATOMA NOTED. FINGERS WARM AND CAP REFILL IS BRISK. VSS, FAMILY AT BEDSIDE. SANDWICH AND PO FLUIDS HAVE BEEN SERVED.
--- NOTE | 2018-09-19 11:55 | NUR ---
PT SITTING UP IN BED, EATING SANDWICH AND SIPPING ON PO FLUIDS. TR BAND IS CDI, FINGERS WARM AND CAP REFILL IS BRISK. VSS. AT BEDSIDE, CALL LIGHT IN REACH.
--- NOTE | 2018-09-19 12:11 | HP ---
PATIENT: MILADYS CHAVEZ MEDICAL RECORD: [id number] ACCOUNT: [id number] LOCATION:[facility] : 48 ADMISSION DATE: 09/19/18 PCP: LYNN HAMILTON MD HISTORY AND PHYSICAL EXAMINATION DATE OF SERVICE: 09/19/2018. ADMITTING DIAGNOSES: 1. Angina. 2. Coronary artery disease. 3. Recent percutaneous transluminal coronary angioplasty stent left anterior descending and circumflex with concomitant disease right coronary artery. 4. Hypertension. 5. Hyperlipidemia. HISTORY OF PRESENT ILLNESS: Mr. Chavez presents with unstable angina, found to have 3-vessel coronary artery disease, underwent successful PTCA stent of the LAD and left circumflex. He is now brought back for PTCA stent of the RCA. PHYSICAL EXAMINATION: GENERAL APPEARANCE: Well-nourished, well-developed, appears stated age. Level of distress, comfortable. PSYCHIATRIC: Mental status, alert, normal affect. Orientation, oriented to time, place and person. EYES: Lids and conjunctiva, noninjected. No discharge, no pallor. ENT: Lips, teeth, gums, normal dentition. Oropharynx, no cyanosis, no pallor. NECK: Carotid arteries, bilateral normal upstroke, no bruits, no thrills. JUGULAR VEINS: No jugular venous pressure or distention. CERVICAL LYMPH NODES: Nontender, nonenlarged. THYROID: Not enlarged. Nontender. No nodules. LUNGS: Respiratory effort, unlabored. CHEST: Normal curvature. No thoracic deformity. No chest wall tenderness. Percussion, resonant. Auscultation, clear. No wheezes, no rales, no rhonchi. CARDIOVASCULAR: Precordial exam, nondisplaced. No heaves or pericardial thrills. Rate and rhythm, regular. Heart sounds, normal S1, normal S2. No S3, no gallop, no rub. Systolic murmur, not heard. Diastolic murmur, not heard. EXTREMITIES: No cyanosis, no edema. Peripheral pulses, full and equal in all extremities, except as noted. No bruits appreciated. ABDOMEN: Soft, nondistended. Normal aorta. No bruit. Nontender. No masses. Liver, nontender, no hepatomegaly. Spleen, nontender, no splenomegaly. MUSCULOSKELETAL: No joint tenderness. No joint swelling. No erythema. NEUROLOGICAL: Normal gait, normal strength, normal tone. SKIN: Warm and dry. OVERALL IMPRESSION: Anginal symptomatology with significant disease of the right coronary artery. We will proceed with transcatheter revascularization of the right coronary artery. TRANSINT:[id number] Voice Confirmation ID: [id number] DOCUMENT ID: [id number] HISTORY AND PHYSICAL [id number] MILADYS CHAVEZ JEFFREY MD at 1211 CC: [id number] DICTATION DATE: 09/19/18 1059 SHROUDMAN: 09/19/[address] [facility] [address] [place] [address]
--- NOTE | 2018-09-19 12:18 | NUR ---
PT IS ALERT, DENIES ANY C/O. HAS TOLERATED SANDWICH WITH NO C/O NAUSEA. TR BAND IS CDI, FINGERS WARM AND CAP REFILL IS BRISK. VSS. RESP WITH EASE. AT BEDSIDE.
--- NOTE | 2018-09-19 13:02 | NUR ---
PT HAS VOIDED 300 CC CLEAR YELLOW URINE TO URINAL. TR BAND IS CDI, FINGERS WARM AND CAP REFILL IS BRISK. VSS, PT IS ALERT AND DENIES ANY C/O. IS SITTING UP IN BED USING IPAD. AT BEDSIDE.
--- NOTE | 2018-09-19 13:35 | NUR ---
PT SITTING UP IN BED ALERT AND DENIES ANY C/O. TR BAND IS CDI, FINGERS WARM AND CAP REFILL IS BRISK. PT DENIES ANY C/O PAIN OR NAUSEA. VSS, CALL LIGHT IN REACH.
--- NOTE | 2018-09-19 14:35 | NUR ---
3 CC OF AIR WEANED FROM TR BAND WITH NO BLEEDING NOTED. FINGERS WARM AND CAP REFILL IS BRISK. PT IS ALERT AND DENIES ANY C/O.
--- NOTE | 2018-09-19 14:42 | NUR ---
1405 PT ALERT, VOIDED ADDITIONAL 400 CC CLEAR YELLOW URINE TO URINAL. VSS, DENIES ANY C/O CHEST PAIN. TR BAND IS CDI, FINGERS WARM AND CAP REFILL IS BRISK. CALL LIGHT IN REACH.
--- NOTE | 2018-09-19 15:09 | OP ---
PATIENT NAME: MILADYS CHAVEZ MEDICAL RECORD: [id number] :48 LOCATION:D[facility] ADMISSION DATE: SURGEON: LAURA YING MD DATE OF OPERATION: 09/19/2018 PROCEDURES: 1. PTCA stent RCA. 2. Selective coronary angiography. INDICATION: Angina and coronary artery disease. DESCRIPTION OF PROCEDURE: After informed consent was obtained and after a detailed description of risks, benefits as well as alternative therapies, the patient elected to proceed with angiogram and angioplasty. The right radial area was prepped and draped in normal sterile fashion. Right radial artery was cannulated via modified Seldinger technique with placement of 6-Kinyarwanda sheath. All catheters exchanged through this sheath. FINDINGS: The right coronary artery has 90% stenosis distally. This was addressed with a 2.5 x 18 mm Integrity. Result was 0% residual stenosis. OVERALL IMPRESSION: Successful percutaneous transluminal coronary angioplasty stent of the right coronary artery going from 90% initial stenosis to 0% residual. TRANSINT:[id number] Voice Confirmation ID: [id number] DOCUMENT ID: [id number] LAURA YING MD at 1509 CC: [id number] DICTATION DATE: 09/19/18 1123 APPOINTMENT COORDINATOR: 09/19/18 1224 [place] [id number] [place] [id number]
--- NOTE | 2018-09-19 15:35 | NUR ---
1430 3 CC OF AIR WEANED FROM TR BAND WITH NO BLEEDING NOTED. 1445 4 CC OF AIR WEANED FROM TR BAND WITH NO BLEEDING NOTED. 1505 ALL REMAINING AIR WEANED FROM TR BAND WITH NO BLEEDING NOTED.
--- NOTE | 2018-09-19 15:57 | NUR ---
1515 TR BAND REMOVED AND 2X2, TEGADERM PLACED TO SITE. WRIST IMMOBILIZER IS IN PLACE. FINGERS WARM AND PULSES PALPABLE. IV DC'D WITH CATH INTACT AND PT IS DRESSING FOR DC TO HOME WITH ASSIT. DC INSTRUCTIONS HAVE BEEN REVIEWED WITH PPT AND WHO VERBALIZE UNDERSTANDING. 1535 PT ESCORTED TO PRIVATE AUTO VIA WC BY NURSE WITH DRIVING HIM HOME. PT IS ALERT AND DENIES ANY C/O. DRESSING REMAINS CDI TO RIGHT WRIST.
== END 2018-09-19 15:35 | disposition home or self-care (01) ==
LOC: D.CATH 08:33
PROVIDERS: Internal Medicine Interventional Cardiology
DX: I25.119 Atherosclerotic heart disease of native coronary artery with unspecified angina pectoris (principal); Z01.812 Encounter for preprocedural laboratory examination

== ENCOUNTER 2019-04-12 13:09 | Observation (INO) | payer BC, MEDICARE ==
[~2019-04-12] VITALS: Ht 182.9 cm; Wt 101.2 kg
[2019-04-12 13:33] LABS: BASOPHILS 0.3 % (0-2); EOSINOPHILS 1.3 % (0-7); HEMOGLOBIN 18.3 g/dL (13.5-17.5); LYMPHOCYTES 17.1 % (15-50); MCH 30.9 pg (26.0-34.0); MCHC 35.2 g/dL (31.0-37.0); MCV 87.7 fL (80.0-100.0); MEAN PLATELET VOLUME 9.8 fL (7.4-10.4); MONOCYTES 9.3 % (2-11); RBC 5.93 10x6/uL (4.20-6.10); RDW 13.8 % (11.5-14.5); WBC 9.1 10x3/uL (4.8-10.8)
[2019-04-12] MEDS ORDERED: DILTIAZEM 24HR360 M4 PO (13:33)
[2019-04-12] MEDS ORDERED: CELEXA40 MG PO (13:33)
[2019-04-12 13:35] LABS: PLATELET COUNT 208 10x3/uL (130-400)
[2019-04-12 14:00] VITALS: BP 180/84
[2019-04-12 14:11] LABS: APTT 28.7 SECONDS (22.8-39.4); INR 1.05 (0.85-1.17); PROTIME 13.2 SECONDS (11.6-15.0)
[2019-04-12 14:11] LABS: ALBUMIN 3.6 g/dL (3.4-5.0); ALKALINE PHOSPHATASE 94 U/L (46-116); ALT (SGPT) 23 U/L (10-68); BILIRUBIN - TOTAL 0.54 mg/dL (0.2-1.3); CALC OSMOLALITY 282 mosm/kg (275-300); CALCIUM 9.7 mg/dL (8.5-10.1); CARBON DIOXIDE 26.8 mmol/L (21.0-32.0); CHLORIDE - SERUM 105 mmol/L (98-107); CREATININE - SERUM 1.8 mg/dL (0.6-1.3); GLUCOSE 97 mg/dL (74-106); POTASSIUM - SERUM 4.5 mmol/L (3.5-5.1); PROTEIN - SERUM 7.2 g/dL (6.4-8.2); SODIUM 140 mmol/L (136-145); UREA NITROGEN 25 mg/dL (7-18); eGFR NON AFRICAN AMERICAN 40 mL/min (90-120)
[2019-04-12 14:31] LABS: CKMB 0.8 U/L (0.0-3.6); CREATINE KINASE 54 UL (21-232)
[2019-04-12 14:44] LABS: TROPONIN-I < 0.017 ng/mL (0.000-0.060)
[2019-04-12 15:00] VITALS: BP 161/90
[2019-04-12] MEDS ORDERED: XANAX0.25 MG PO (16:48)
[2019-04-12 16:53] VITALS: BP 191/107; BMI 32.3
[2019-04-12 17:29] VITALS: BP 191/107
[2019-04-12] MEDS ORDERED: PROCARDIA XL30 MG PO (17:29)
[2019-04-12 20:00] VITALS: BP 141/71
--- NOTE | 2019-04-12 20:04 | NUR ---
INITIAL ROUNDS COMPLETED AT 1915 HRS. PT DENIED ANY DISCOMFORT. ASSESMENT COMPLETED AT 1950 HRS. SR PER CM HR 65. ALERT AND ORIENTED TO PERSON, PLACE AND TIME. NATION. IV TO RFA SL. LUNGS ESSENTIALLY CTA. DENIES ANY DISCOMFORT. SR UP X2, CALL LIGHT WITHIN REACH.
--- NOTE | 2019-04-12 21:12 | NUR ---
VSS. DENIES ANY DISCOMFORT. SR UP X2, CALL LIGHT WITHIN REACH.
[2019-04-13] VITALS: BP 107/67
--- NOTE | 2019-04-13 00:58 | NUR ---
XANAX 0.25MG PO GIVEN FOR C/O ANXIETY. CALL LIGHT WITHIN REACH.
--- NOTE | 2019-04-13 02:42 | NUR ---
PT RESTING WITH EYES CLOSED. RESP EVEN AND REGULAR. SR UP X2, CALL LIGHT WITHIN REACH.
[2019-04-13 04:00] VITALS: BP 124/72
--- NOTE | 2019-04-13 04:55 | NUR ---
PT RESTING WITH EYES CLOSED. RESP EVEN AND REGULAR. SR UP X2, CALL LIGHT WITHIN REACH.
--- NOTE | 2019-04-13 05:19 | NUR ---
PT HAS C/O SEVERE ROSEN AND NAUSEA. NITRO PATCH REMOVED FORM L ANTERIOR CHEST WALL. ZOFRAN 4MG SIVP GIVEN. CALL LIGHT WITHIN REACH.
--- NOTE | 2019-04-13 07:30 | NUR ---
ASSESSMENT DONE. DENIES NEEDS
[2019-04-13 08:33] VITALS: BP 144/85
[2019-04-13 08:38] VITALS: Ht 182.9 cm; Wt 101.2 kg
--- NOTE | 2019-04-13 10:30 | NUR ---
DC AND RX GIVEN TO PT
--- NOTE | 2019-04-13 10:32 | NUR ---
I have reviewed this patient and I concur with the Shift Assessment completed by the Licensed Practical Nurse today this shift.
--- NOTE | 2019-04-13 10:40 | NUR ---
DC HOME PER PERSONAL CAR
--- NOTE | 2019-04-14 09:26 | MORECARE ---
CASE MANAGEMENT DISCHARGE SUMMARY PATIENT: MILADYS CHAVEZ TIA UNIT: [id number] ADM DATE: 04/12/19 AGE: 69 : [birth year] SEX: M ROOM/BED: D.2120 AUTHOR: PATRICK HINES PHYSICIAN: REFERRING PHYSICIAN: LAURA YING MD DATE OF SERVICE: 04/14/19 Discharge Plan Patient Name: MILADYS CHAVEZ [facility] [facility] 1950 Planned Disposition: Home Anticipated Discharge Date: 04/13/19 Discharge Date: 04/13/2019 Expected LOS: 1 Initial Reviewer: [email or web address] Initial Review Date: 04/14/2019 Generated: 04/14/19 10:26 am Patient Name: MILADYS CHAVEZ Page 30037 at 0926 All edits/amendments must be made on the electronic document DICTATION DATE: 04/14/19925 JACK SETTER: LISETTE 04/14/19925 RPT#: [id number] DC DATE:04/13/19 STATUS: DIS IN [facility] [address] [place] [address] END OF REPORT
--- NOTE | 2019-04-14 11:10 | HP ---
PATIENT: MILADYS CHAVEZ MEDICAL RECORD: [id number] ACCOUNT: [id number] LOCATION:[address] : [birth year] ADMISSION DATE: 04/12/19 PCP: LYNN HAMILTON MD HISTORY AND PHYSICAL EXAMINATION DIAGNOSES: 1. Hypertensive emergency. 2. Essential hypertension. 3. Angina. 4. Coronary artery disease. 5. Shortness of breath, dyspnea on exertion. 6. Previous multivessel percutaneous transluminal coronary angioplasty stent. HISTORY OF PRESENT ILLNESS: Mr. Chavez is well known to us with a past history of coronary artery disease, multivessel PTCA stent, who presents with increasing systolic blood pressures in the 200-220 range with chest pain, shortness of breath, dyspnea on exertion, and headache. He was given Procardia-XL 90 in the Emergency Room and his blood pressure has decreased, his symptomatology has abated. He is on diltiazem 360 mg every day for blood pressure. He was previously on valsartan, this had to be stopped secondary to renal insufficiency. His last cardiac stenting was in September. His EKG is with no acute changes. His troponin is normal. PHYSICAL EXAMINATION: CONSTITUTIONAL/GENERAL APPEARANCE: Well nourished, well developed, appears stated age. EYES: Lids and conjunctivae noninjected. No discharge. No pallor. ENT: Lips within normal limit. No cyanosis. No pallor. NECK: Carotid arteries, bilateral normal upstroke. No bruits. No thrills. No jugular venous pressure or distention. CERVICAL LYMPH NODES: Nontender. Nonenlarged. THYROID: Not enlarged. No nodules. CARDIOVASCULAR: Precordial exam, nondisplaced. No heaves or pericardial thrills. Rate and rhythm, regular. Heart sounds, normal S1, normal S2. No S3, no gallop, no rub. Systolic murmur, not heard. Diastolic murmur, not heard. RESPIRATORY: Respiratory effort, unlabored. Normal curvature. No thoracic deformity. No chest wall tenderness. Percussion, resonant. Auscultation, clear. No wheezes, no rales, no rhonchi. ABDOMEN: Soft, nondistended, nontender. No abdominal pain, no vomiting and normal appetite. MUSCULOSKELETAL: No joint tenderness, normal gait, normal tone. SKIN: Warm and dry. OVERALL IMPRESSION: Hypertensive emergency, his chest discomfort that he got with this is different than that of his angina. He has no EKG changes, normal troponin. I think his symptomatology with shortness of breath, headache, and angina are all related to the hypertensive emergency, which has been abated with Procardia for his blood pressure remains down. We will discontinue in the a.m. with discontinuation of the diltiazem and continuing the Procardia-XL 90. TRANSINT:[id number] Voice Confirmation ID: [id number] DOCUMENT ID: [id number] HISTORY AND PHYSICAL [id number] MILADYS CHAVEZ JEFFREY MD at 1110 CC: [id number] DICTATION DATE: 04/13/19 1034 ELECTROMECHANISMS DESIGN DRAFTER: 04/13/19 1145 DIS IN 04/13/19 [facility] [address] [place] [address]
--- NOTE | 2019-04-14 11:10 | DS ---
PATIENT:MILADYS CHAVEZ :[birth year] MEDICAL RECORD: [id number] DISCHARGE SUMMARY ADMISSION DATE: 04/12/19 DISCHARGE DATE: 04/13/19 DIAGNOSES: 1. Hypertensive emergency. 2. Hypertension. 3. Angina. 4. Shortness of breath and dyspnea on exertion. 5. Headache. 6. Coronary artery disease. 7. Previous multivessel percutaneous transluminal coronary angioplasty and stent. HOSPITAL COURSE: Mr. Chavez presents with hypertensive emergency with angina, shortness of breath and headache with systolic blood pressures in the 220 range. He received Procardia-XL 90. This lowered his blood pressure and kept it down and his symptomatology abated. Troponins were normal. EKG is with no changes, was discharged home with discontinuation of his diltiazem, to start Procardia-XL 90. Follow up with [facility] in 1 week. TRANSINT:[id number] Voice Confirmation ID: [id number] DOCUMENT ID: [id number] LAURA YING MD at 1110 CC: [id number] DICTATION DATE: 04/13/19 1034 PIANO MOVER: 04/13/19 2338 DIS IN 04/13/19 [facility] [address] [place] [id number]
== END 2019-04-13 10:40 | disposition home or self-care (01) ==
LOC: D.ER 13:09 → D.M2 16:08 → OBSVTIME 16:08 → D.M2 16:08
PROVIDERS: Family Medicine; ADMIT Internal Medicine Interventional Cardiology; ATTEND Internal Medicine Interventional Cardiology
DX: I16.1 Hypertensive emergency (principal); I25.119 Atherosclerotic heart disease of native coronary artery with unspecified angina pectoris; R51 Headache

== ENCOUNTER 2019-04-30 14:28 | Emergency (ER) | payer BC, MEDICARE ==
[~2019-04-30] VITALS: Ht 182.9 cm; Wt 103.6 kg
[~2019-04-30 14:28] MED LIST changes: +CELEXA40 MG PO; +DILTIAZEM 24HR360 M4 PO; +PROCARDIA XL30 MG PO; +XANAX0.25 MG PO
[2019-04-30] MEDS ORDERED: TOPROL XL25 MG PO (14:35)
[2019-04-30] MEDS ORDERED: WELLBUTRIN SR150 MG PO (14:36)
[2019-04-30] MEDS ORDERED: [UNRECOGNIZED DRUG - OTHER] (14:37)
[2019-04-30] MEDS ORDERED: [UNRECOGNIZED DRUG - OTHER] (14:37)
[2019-04-30 15:12] LABS: BASOPHILS 0.3 % (0-2); EOSINOPHILS 0.4 % (0-7); HEMATOCRIT 50.9 % (42.0-54.0); HEMOGLOBIN 18.2 g/dL (13.5-17.5); IMMATURE GRANULOCYTES 0.7 % (0-5); LYMPHOCYTES 11.9 % (15-50); MCH 30.5 pg (26.0-34.0); MCHC 35.8 g/dL (31.0-37.0); MCV 85.3 fL (80.0-100.0); MEAN PLATELET VOLUME 9.5 fL (7.4-10.4); MONOCYTES 7.4 % (2-11); NEUTROPHILS 79.3 % (40-80); PLATELET COUNT 209 10x3/uL (130-400); RBC 5.97 10x6/uL (4.20-6.10); RDW 13.3 % (11.5-14.5); WBC 10.8 10x3/uL (4.8-10.8)
[2019-04-30 15:18] LABS: APTT 27.9 SECONDS (22.8-39.4); INR 1.05 (0.85-1.17); PROTIME 13.2 SECONDS (11.6-15.0)
[2019-04-30 15:22] LABS: ALBUMIN 3.8 g/dL (3.4-5.0); ALKALINE PHOSPHATASE 103 U/L (46-116); ALT (SGPT) 43 U/L (10-68); BILIRUBIN - TOTAL 0.71 mg/dL (0.2-1.3); CALC OSMOLALITY 276 mosm/kg (275-300); CALCIUM 8.6 mg/dL (8.5-10.1); CARBON DIOXIDE 20.7 mmol/L (21.0-32.0); CHLORIDE - SERUM 102 mmol/L (98-107); CREATININE - SERUM 1.8 mg/dL (0.6-1.3); GLUCOSE 119 mg/dL (74-106); POTASSIUM - SERUM 4.8 mmol/L (3.5-5.1); PROTEIN - SERUM 7.2 g/dL (6.4-8.2); SODIUM 136 mmol/L (136-145); UREA NITROGEN 23 mg/dL (7-18); eGFR NON AFRICAN AMERICAN 40 mL/min (90-120)
[2019-04-30 15:28] VITALS: Ht 182.9 cm; Wt 103.6 kg
[2019-04-30 15:34] LABS: CKMB 0.9 U/L (0.0-3.6); CREATINE KINASE 83 UL (21-232); MAGNESIUM - SERUM 2.1 mg/dL (1.8-2.4); TROPONIN-I < 0.017 ng/mL (0.000-0.060)
[2019-04-30 16:32] LABS: APPEARANCE CLEAR (CLEAR); BILIRUBIN NEGATIVE (NEGATIVE); COLOR YELLOW (YELLOW); GLUCOSE NEGATIVE (NEGATIVE); KETONE NEGATIVE (NEGATIVE); NITRITE NEGATIVE (NEGATIVE); PROTEIN NEGATIVE (NEGATIVE); UROBILINOGEN NORMAL (NORMAL)
[2019-04-30 16:33] LABS: BACTERIA FEW /hpf (NONE SEEN); RED CELLS - URINE 0-5 /hpf (0-5)
[2019-04-30 19:38] VITALS: BP 149/86
--- NOTE | 2019-05-01 15:34 | CN ---
PATIENT NAME:MILADYS CHAVEZ MEDICAL RECORD: [id number] : 48 LOCATION:.ER ADMIT DATE: ACCOUNT: [id number] CONSULTING PHYSICIAN: LAURA YING MD REFERRING PHYSICIAN: HEATHER PERERA MD DATE OF CONSULTATION: 04/30/2019 DIAGNOSES: 1. Hypertensive emergency. 2. Essential hypertension. 3. Shortness of breath. 4. Dizziness. 5. Nausea. 6. Coronary artery disease. 7. Previous percutaneous transluminal coronary angioplasty stent. HISTORY OF PRESENT ILLNESS: Mr. Chavez presents with headache, dizziness, nausea, shortness of breath, found to be at home, hypertensive in the 180 range. He is on Procardia. He recently had the addition of metoprolol to his Procardia. He was previously on an ARB; however, he has renal insufficiency. The ARB was discontinued because of this. His blood pressure then went down to 90 systolic. He became very weak with this. Now, his blood pressure is in the 130 range. His troponins are normal. His EKG is with no changes. Last cardiac intervention was 09/2018. He has had no chest pain with any of these episodes. PHYSICAL EXAMINATION: CONSTITUTIONAL/GENERAL APPEARANCE: Well nourished, well developed, appears stated age. EYES: Lids and conjunctivae noninjected. No discharge. No pallor. ENT: Lips within normal limit. No cyanosis. No pallor. NECK: Carotid arteries, bilateral normal upstroke. No bruits. No thrills. No jugular venous pressure or distention. CERVICAL LYMPH NODES: Nontender. Nonenlarged. THYROID: Not enlarged. No nodules. CARDIOVASCULAR: Precordial exam, nondisplaced. No heaves or pericardial thrills. Rate and rhythm, regular. Heart sounds, normal S1, normal S2. No S3, no gallop, no rub. Systolic murmur, not heard. Diastolic murmur, not heard. RESPIRATORY: Respiratory effort, unlabored. Normal curvature. No thoracic deformity. No chest wall tenderness. Percussion, resonant. Auscultation, clear. No wheezes, no rales, no rhonchi. ABDOMEN: Soft, nondistended, nontender. No abdominal pain, no vomiting and normal appetite. MUSCULOSKELETAL: No joint tenderness, normal gait, normal tone. SKIN: Warm and dry. OVERALL IMPRESSION: Hypertensive emergency. Systolic blood pressures in the 180, really unsure why his blood pressure spiked up. He denies any big salt load or dietary indiscretion and he denies any noncompliance with his medications. He has not felt well since he has been on the metoprolol in addition to the Procardia. He overall has done well with the Procardia other than it is just not controlling his blood pressure on 24-hour basis. We will discontinue the metoprolol. We will add Cardura 2 mg b.i.d. to his blood pressure regimen. We will steer clear of MONA inhibitors or ARBs due to the renal insufficiency. We will see him next week. CONSULT REPORT [id number] MILADYS CHAVEZ TRANSINT:[id number] Voice Confirmation ID: [id number] DOCUMENT ID: [id number] LAURA YING MD at 1534 CC: [id number] DICTATION DATE: 04/30/19 1532 HOT DIE PICKER: 04/30/19 1554 DEP ER 04/30/19 [facility] [address] [place] [address]
== END 2019-04-30 19:40 | disposition home or self-care (01) ==
LOC: D.ER 14:28
PROVIDERS: Family Medicine
DX: R07.9 Chest pain, unspecified (principal); N13.30 Unspecified hydronephrosis

== ENCOUNTER → 2019-11-06 07:57 | Outpatient (CLI) | payer BC, MEDICARE ==
[2019-04-30 15:28] VITALS: BMI 31.0
--- NOTE | ~2019-11-06 | ST ---
PATIENT:MILADYS CHAVEZ MEDICAL RECORD: [id number] SEX: M LOCATION:[facility] ORDER #: ADMISSION DATE: 11/06/19 AGE OF PATIENT: 69 REFERRING PHYSICIAN: INTERPRETING PHYSICIAN: LAURA YING MD DATE OF SERVICE: 11/06/2019 PROCEDURE: Nuclear stress test. INDICATION: Angina and coronary artery disease, shortness of breath. He was exercised on standard Lexiscan protocol with 33 mCi of sestamibi injected at peak stress, 11 mCi used previously for rest images. FINDINGS: Gated SPECT reveals preserved ejection fraction at 65% with good wall motion and thickening and brightening throughout all segments. SPECT imaging Cardiolite was used as myocardial perfusion agent. There is reversibility inferiorly and laterally, this includes the basal, mid, apical inferior segments as well as apical lateral, mid lateral, basal lateral segments. The degree of reversibility is moderate. The amount of myocardium involved is large. OVERALL IMPRESSION: This is a high risk abnormal nuclear stress test, large amount of reversible ischemia laterally as well as inferiorly suggestive of hemodynamically significant coronary artery disease. TRANSINT:[id number] Voice Confirmation ID: [id number] DOCUMENT ID: [id number] LAURA YING MD CC: LYNN HAMILTON [id number] DICTATION DATE: 11/06/19 1259 SECOND SHIFT SUPERVISOR: 11/06/19 2157 [facility] [address] [place] [id number]
--- NOTE | ~2019-11-06 | EC ---
PATIENT:MILADYS CHAVEZ DATE OF SERVICE: 11/06/19 SEX: M MEDICAL RECORD: [id number] DATE OF : 48 LOCATION:[facility] AGE OF PATIENT: 69 ADMISSION DATE: 11/06/19 REFERRING PHYSICIAN: INTERPRETING PHYSICIAN: LAURA STEWART MD ECHOCARDIOGRAM REPORT ECHO CHARGES 4 ECHO COMPLETE Date: 11/06/19 CLINICAL DIAGNOSIS: DYSPNEA ON EXERTION, FATIGUE HX CAD/HTN PT IS ON A CHEMO DRUG ECHOCARDIOGRAPHIC MEASUREMENTS (adult normal given) AC root (d.<3.7cm) 3.3 cm LV Septum d (<1.2 cm> 1.4 cm Valve Excursion 1.2 cm LV Septum (systole) 1.8 cm Left Atria (s.<4.0cm> 4.1 cm LVPW d(<1.2cm) 1.6 cm RV (d.<2.3cm) 3.8 cm LVPW (sytole) 1.8 cm LV diastole(<5.6CM) 5.2 cm MV E-F(>70mm/sec) cm LV systole 3.7 cm LVOT Diameter 2.1 cm MV exc.(>10mm) 1.6 cm Est.ejection fraction (50-75%) % DOPPLER: LVIT cm/sec A 86.0 cm/sec E 65.0 cm/sec LA cm/sec RVSP 37 mmHg LVOT 99 cm/sec AOP1/2T m/s Asc. Ao 114 cm/sec RVOT 111 cm/sec RA cm/sec PA 128 cm/sec AV Gradient Peak 5.16 mmHg AV Mean 2.60 mmHg AV Area 3.5 cm MV Gradient Peak 4.51 mmHg MV Mean 1.38 mmHg MV Area cm COMMENTS: High School Teacher: 2 BRIANNA ORLANDO Cup Setter Lockstitch: 1 Dr. Stewart TAPE# PACS Pericardial Effusion N DATE OF SERVICE: ECHOCARDIOGRAM FINDINGS: 1. Left ventricular chamber size is within normal limits. Left ventricular systolic function is normal. Overall ejection fraction estimated at 55%. 2. Left atrium, right atrium, and right ventricular chamber sizes are within normal limits. ECHOCARDIOGRAM REPORT [id number] MILADYS CHAVEZ 3. Valvular structures have normal structure and motion. 4. Doppler interrogation only reveals mild tricuspid regurgitation, no other valvular insufficiency or stenosis. 5. No evidence of pericardial effusion or left ventricular thrombus. TRANSINT:[id number] Voice Confirmation ID: [id number] DOCUMENT ID: [id number] LAURA STEWART MD CC: [id number] DICTATION DATE: 11/06/19 1110 SANDING LINE OPERATOR: 11/06/19 1311 [facility] [address] [place] [id number]
[~2019-11-06 07:57] MED LIST changes: +TOPROL XL25 MG PO; +WELLBUTRIN SR150 MG PO; +[UNRECOGNIZED DRUG - OTHER]; +[UNRECOGNIZED DRUG - OTHER]
== END | disposition home or self-care (01) ==
LOC: D.HCCECHO 07:57
PROVIDERS: ATTEND Internal Medicine Interventional Cardiology
DX: I25.10 Atherosclerotic heart disease of native coronary artery without angina pectoris (principal); I10 Essential (primary) hypertension

== ENCOUNTER 2019-11-18 08:12 | Outpatient (CLI) | payer BC, MEDICARE ==
[~2019-11-18] VITALS: Ht 185.4 cm; Wt 107.1 kg
--- NOTE | ~2019-11-18 | OP ---
PATIENT NAME: MILADYS CHAVEZ MEDICAL RECORD: [id number] :48 LOCATION:[facility] ADMISSION DATE: SURGEON: LAURA YING MD DATE OF OPERATION: 11/18/2019 PROCEDURES: 1. PTCA stent LAD. 2. PTCA stent left circumflex. 3. Left heart catheterization. 4. Selective coronary angiography. 5. Left ventriculogram. INDICATION: Angina and coronary artery disease. PROCEDURE IN DETAIL: After informed consent was obtained and after detailed explanation of risks, benefits as well as alternative therapies, the patient elected to proceed with angiogram and angioplasty. The right radial area was prepped and draped in normal sterile fashion. Right radial artery was cannulated via modified Seldinger technique with placement of 6-Armenian sheath. All catheters exchanged through this sheath. FINDINGS: Left ventriculography was performed in the standard 30-degree SANTIAGO view reveals good cardiac wall motion throughout all segments. Overall ejection fraction estimated at 55% to 60%. SELECTIVE CORONARY ANGIOGRAPHY: 1. Left main is with no significant angiographic disease. 2. Left anterior descending has 90% stenosis proximally. 3. Left circumflex has 80% to 90% stenosis in the mid vessel. 4. Right coronary has 80% to 90% stenosis in the mid distal vessel. PTCA STENT OF THE LAD: The stent used was a 3.0 x 12 mm William. Result was 0% residual stenosis. PTCA STENT OF THE LEFT CIRCUMFLEX: The stent used was a 2.5 x 12 mm William. Result was 0% residual stenosis. OVERALL IMPRESSION: Successful percutaneous transluminal coronary angioplasty stent of the left anterior descending and circumflex, both going from 80% to 90% initial stenosis to 0% residual. PLAN: For PTCA stent of the RCA in the near future. TRANSINT:[id number] Voice Confirmation ID: [id number] DOCUMENT ID: [id number] LAURA YING MD CC: [id number] DICTATION DATE: 11/18/19 1054 EMS HELICOPTER PILOT: 11/18/19 1254 [facility] [address] [place] [address]
--- NOTE | ~2019-11-18 | HEMODYNAMI ---
PATIENT:MILADYS CHAVEZ MEDICAL RECORD: [id number] : 48 LOCATION:[facility] ADMISSION DATE: 11/18/19 Generatedon:11/18/201911:01 Patient name: MILADYS CHAVEZ Patient #: [id number] SSN: [id number] : 1950 Date of study: 11/18/2019 Page: Of Hemodynamic Procedure Report Patient Data Patient Demographics Procedure consent was obtained First Name: MILADYS Gender: Male Last Name: SCOTT : 1950 [facility] Initial: TIA Age: 69 year(s) Patient #: [id number] Race: SSN: [id number] Additional ID: [id number] Contact details Address: [address] [place] [address] ROAD State: [place] City: [place] Zip code: [address] Past Medical History Performed procedures and imaging results Date Procedure Procedure Results Comments 11/06/2019 Stress testing Positive->Intermediate with SPECT MPI risk Allergies: No known allergies Admission Admission Data Admission Date: 11/18/2019 Admission Time: 8:12 Arrival Date: 11/18/2019 Arrival Time: 0:00 Admit Source: Other Insurance Payor: Private health insurance [facility] #: [id number] Height (in.): 73 BSA: 2.31 (m2) Height (cm.): 185.42 BMI: 31.15 (kg/m2) Weight (lbs.): 236.09 Weight (kg.): 107.09 Lab Results Lab Result Date: 11/18/2019 Lab Result Time: 0:00 Biochemistry Name Units Result Min Max BUN mg/dl 23 --(----)-* 7 18 Creatinine mg/dl 1.7 --(----)-* 0.6 1.3 eGFR ml/min 43 *-(----)-- 90 120 NONAFRICAN CBC Name Units Result Min Max Hematocrit % 44.5 --(*---)-- 42 54 Hemoglobin g/dl 14.8 --(-*--)-- 13.5 17.5 Procedure Procedure Types Cath Procedure Diagnostic Procedure [facility] w/Coronaries Sedation Charges Moderate Sedation up to 15 minutes PCI Procedure Coronary Stent Coronary Stent Initial x2 Hemochron ACT Test Procedure Description Procedure Date Procedure Date: 11/18/2019 Procedure Start Time: 10:34 Procedure End Time: 10:58 Procedure Staff Name Function Nakul Stewart MD Performing Physician Loreta Dunbar RT Monitor Nini Amaya RT Scrub Iggy Saucedo RN Nurse Indication Chest pain Procedure Data Cath Procedure Fluoroscopy Diagnostic fluoroscopy Total fluoroscopy Time: 5.8 time: 5.8 min min Diagnostic fluoroscopy Total fluoroscopy dose: 516 dose: 516 mGy mGy Contrast Material Contrast Material Type Amount (ml) Isovue 370 94 Entry Location Entry Primary Successful Side Size Upsize Upsize Entry Closure [place] ccessful Closure Location (Fr) 1 (Fr) 2 (Fr) Remarks Device Remarks Radial Right 6 Fr Mechanical artery Short Compression Estimated blood loss: 10 ml Diagnostic catheters Device Type Used For End Catheter Placement DIAGNOSTIC [place] 110cm 5 Procedure Fr catheter ([id number]) Procedure Complications No complications Procedure Medications Medication Administration Route Dosage 0.9% NaCl I.V. 100 ml/hr Oxygen etCO2 Nasal cannula 2 l/min Heparin Flush Bag added to field 2 bags (1000units/500ml NS) Lidocaine 2% added to field 20 Radial Cocktail added to field 1 syringe (Verapamil 2mg/Nitro 400mcg/Heparin 1500units) Versed I.V. 2 mg Fentanyl I.V. 100 mcg Radial Cocktail I.A. 1 syringe (Verapamil 2mg/Nitro 400mcg/Heparin 1500units) Versed I.V. 1 mg Fentanyl I.V. 50 mcg Heparin Bolus I.V. 4000 units Integrilin (Bolus I.V. 9.5 ml 2mg/ml) Integrilin (Bolus wasted 0.5 ml 2mg/ml) Plavix P.O. 600 mg Versed I.V. 1 mg Hemodynamics Rest BSA: 2.31 (m2) HGB: 14.8 (g/dl) O2 Consumption: Estimated: 263.49 (ml/min) O2 Co nsumption indexed: Estimated:114.06 (ml/min/m) Heart Rate: 66 (bpm) Snapshots Pre Cath Intra NCS Post Cath Vital Signs Time Heart Resp SPO2 etCO2 NIBP (mmHg) Rhythm Pain Sedation Rate (ipm) (%) (mmHg) Status Level (bpm) 10:10:43 78 15 96 28.5 142/88(116) NSR 0 (11) 10(A) , No pain 10:14:53 77 24 96 29.2 134/85(108) NSR 0 (11) 10(A) , No pain 10:19:01 72 18 92 26.2 131/80(98) NSR 0 (11) 10(A) , No pain 10:23:09 74 16 92 27.7 121/79(98) NSR 0 (11) 10(A) , No pain 10:27:12 72 14 92 32.3 132/80(96) NSR 0 (11) 10(A) , No pain 10:31:22 66 13 91 23.2 130/75(102) NSR 0 (11) 10(A) , No pain 10:35:28 74 14 95 32.3 133/84(108) NSR 0 (11) 9(A) , No pain 10:39:34 86 15 91 0 86/61(78) NSR 0 (11) 9(A) , No pain 10:44:12 81 15 92 27.7 121/83(98) NSR 0 (11) 9(A) , No pain 10:48:16 75 14 92 27 109/80(96) NSR 0 (11) 9(A) , No pain 10:52:14 75 16 94 30 125/84(114) NSR 0 (11) 10(A) , No pain 10:56:17 76 16 96 29.2 138/87(108) NSR 0 (11) 9(A) , No pain Medications Time Medication Route Dose Verified Delivered Reason Not es Effectiveness by by 10:10:05 0.9% NaCl I.V. 100 Iggy Iggy Per physician ml/hr Sheryl Saucedo RN RN 10:10:21 Oxygen etCO2 2 l/min Iggy Iggy for low 02 sats Nasal Lorigan Sheryl cannula RN RN 10:10:33 Heparin Flush added 2 bags Iggy Iggy used for Bag to Lorigan Sheryl procedure (1000units/500ml field RN RN NS) 10:10:54 Lidocaine 2% added 20ml Iggy Iggy for local to vial Lorigan Lorarlyn anesthetic RN RN 10:11:16 Radial Cocktail added 1 Iggy Iggy used for (Verapamil to syringe Sheryl Saucedo procedure 2mg/Nitro field RN RN 400mcg/Heparin 1500units) 10:33:43 Versed I.V. 2 mg Iggy Iggy for sedation Sheryl Saucedo RN RN 10:33:54 Fentanyl I.V. 100 mcg Iggy Iggy for sedation Sheryl Saucedo RN RN 10:36:19 Radial Cocktail I.A. 1 Iggy Nakul for (Verapamil syringe Lorigan Tauth MD vasodilation 2mg/Nitro RN 400mcg/Heparin 1500units) 10:36:30 Versed I.V. 1 mg Iggy Iggy for sedation Sheryl Saucedo RN RN 10:36:37 Fentanyl I.V. 50 mcg Iggy Iggy for sedation Sheryl Saucedo RN RN 10:39:41 Versed I.V. 1 mg Iggy Iggy for sedation Sheryl Saucedo RN RN 10:42:28 Heparin Bolus I.V. 4000 Iggy Iggy for units Sheryl Saucedo anticoagulation RN RN 10:42:53 Integrilin I.V. 9.5 ml Iggy Iggy for (Bolus 2mg/ml) Sheryl Saucedo antiplatelet RN RN therapy 10:43:56 Integrilin wasted 0.5 ml Iggy Iggy to sharp's (Bolus 2mg/ml) Sheryl Saucedo RN RN 10:55:31 Plavix P.O. 600 mg Iggy Iggy for Sheryl Saucedo antiplatelet RN RN therapy Procedure Log Time Note 9:09:51 Informed consent obtained and on chart 9:10:03 Patient allergic to No known allergies 9:11:24 Arrival Date: 11/18/2019 12:00:00 AM 9:11:25 Admit Source: Other 9:11:48 Insurance Payor : Private health insurance 9:17:04 Diagnostic Cath Status : Elective 9:17:20 Indication : Chest pain 9:17:34 Procedure Status Elective Heart Cath (OP). 9:17:36 Time tracking: Regular hours (M-F 7:00 - 5:00) 9:17:40 Plan of Care:Hemodynamics will remain stable., Cardiac rhythm will remain stable., Comfort level will be maintained., Respiratory function will remain adequate., Patient/ family verbilizes understanding of procedure., Procedure tolerated without complication., Recovers from procedure without complications.. 9:18:02 H&P Date Dictated: 10/26/2019 Within 30 days and on chart.. 9:18:04 Pre-procedure instructions explained to patient. 9:18:04 Pre-op teaching completed and patient verbalized understanding. 9:18:06 Patient NPO since Midnight. 9:18:27 Stress Test: yes; abnormal LATERAL AND INFERIOR 9:50:18 Iggy Saucedo RN sent for patient. Start room use. 9:57:19 Lab Result : Creatinine 1.7 mg/dl 9:57:19 Lab Result : BUN 23 mg/dl 9:57:19 Lab Result : eGFR NONAFRICAN 43 ml/min 9:57:19 Lab Result : Hemoglobin 14.8 g/dl :57:19 Lab Result : Hematocrit 44.5 % 9:58:00 Alarms reviewed by R. N. 9:58:01 Sharps counted by scrub and verified by R.N. 9:58:06 Lab results completed and on chart. 9:58:23 Patient Height : 73 inches 9:58:29 Patient Weight : 236.09 lbs 10:00:54 Patient received from Pre/Post Procedure Room to CCL 3 Alert and oriented. Tansferred to table in Supine position. 10:00:55 Warm blankets applied, and nando hugger turned on for patient comfort. 10:00:56 Correct patient and procedure confirmed by team. 10:00:56 ECG and BP/O2 sat monitors applied to patient. 10:09:42 Vital chart was started 10:10:05 0.9% NaCl 100 ml/hr I.V. was administered by Iggy Saucedo RN; Per physician; Verbal order read back and verified. 10:10:21 Oxygen 2 l/min etCO2 Nasal cannula was administered by Iggy Saucedo RN; for low 02 sats; Verbal order read back and verified. 10:10:33 Heparin Flush Bag (1000units/500ml NS) 2 bags added to field was administered by Iggy Saucedo RN; used for procedure; Verbal order read back and verified. 10:10:54 Lidocaine 2% 20ml vial added to field was administered by Iggy Saucedo RN; for local anesthetic; Verbal order read back and verified. 10:11:16 Radial Cocktail (Verapamil 2mg/Nitro 400mcg/Heparin 1500units) 1 syringe added to field was administered by Iggy Saucedo RN; used for procedure; Verbal order read back and verified. 10:11:17 Baseline sample Acquired. 10:11:18 Full Disclosure recording started 10:11:21 Family in patients room. 10:11:25 Is the patient allergic to Iodine/contrast media? No. 10:11:27 Was the patient premedicated? N/A 10:11:30 Is patient on blood thinner?No 10:11:31 Patient diabetic? No. 10:11:33 ----Pre-sedation anethsthesia assessment.---- 10:11:37 Previous problem with sedation/anesthesia? No ? 10:11:42 Snore? Yes 10:11:43 Sleep apnea? No 10:11:45 Deviated septum? No 10:11:49 Opens mouth fully? Yes 10:11:50 Sticks out tongue? Yes 10:11:53 Airway obstruction? No ? 10:11:55 Dentures? No ? 10:11:58 Pre procedure: right dorsailis pedis pulse 2+ Normal; easily identifiable; not easily obliterated 10:12:02 Modified Coy's test Ulnar < 7 seconds 10:12:04 Patient pain scale 0/10 ?. 10:12:15 IV patent on arrival in left antecubital with 0.9% NaCl at O. 10:12:19 Right Radial & Right Groin area was prepped with chlora-prep and draped in sterile fashion 10:12:51 Use device set Radial Dx or PCI 10:12:53 ACIST Syringe (11147) opened to sterile field. 10:12:53 Medline Cath Pack ([id number]) opened to sterile field. 10:12:54 Bag Decanter () opened to sterile field. 10:12:54 ACIST Hand Control (39659) opened to sterile field. 10:12:55 ACIST Manifold (01168) opened to sterile field. 10:12:57 MBrace Wrist Support ([id number]) opened to sterile field. 10:12:58 Tegaderm 4 x 4 (1626W) opened to sterile field. 10:13:00 EMERALD Guide Wire (581-243) opened to sterile field. 10:13:01 SHEATH 6FR RAIN (8544902) opened to sterile field. 10:14:59 Rhythm: sinus rhythm 10:31:03 Physical assessment completed. ASA score P 2 - A patient with mild systemic disease as per Nakul Stewart MD. 10:31:05 3b) 30-44 Moderately reduced kidney function. 10:31:07 Maximum allowable contrast dose (3.7 X eGFR X 0.75)119 ml. 10:31:09 --------ALL STOP TIME OUT------ 10:31:10 Final Timeout: patient, procedure, and site verified with staff and physician. All members of the team are in agreement. 10:31:12 Right Radial & Right Groin site verified by team. 10:31:15 Fire Safety Assessment: A--An alcohol-based skin anteseptic being used preoperatively., C--Open oxygen or nitrous oxide is being used., D--An ESU, laser, or fiber-optic light is being used. 10:31:20 Sedation plan: IV Moderate Sedation Medication:Versed, Fentanyl 10:33:43 Versed 2 mg I.V. was administered by Iggy Saucedo RN; for sedation; Verbal order read back and verified. 10:33:54 Fentanyl 100 mcg I.V. was administered by Iggy Saucedo RN; for sedation; Verbal order read back and verified. 10:34:23 Procedure started. 10:34:40 Local anesthetic to right radial artery with Lidocaine 2% by Nakul Stewart MD.INITIAL ACCESS ONLY 10:35:41 A 6 Fr Short sheath was inserted into the Right Radial artery 10:35:53 A DIAGNOSTIC [place] 110cm 5 Fr catheter ([id number]) was advanced over the wire and used for Procedure. 10:36:19 Radial Cocktail (Verapamil 2mg/Nitro 400mcg/Heparin 1500units) 1 syringe I.A. was administered by Nakul Stewart MD; for vasodilation; Verbal order read back and verified. 10:36:30 Versed 1 mg I.V. was administered by Iggy Saucedo RN; for sedation; Verbal order read back and verified. 10:36:37 Fentanyl 50 mcg I.V. was administered by Iggy Saucedo RN; for sedation; Verbal order read back and verified. 10:36:48 LV gram done using SANTIAGO 10:37:15 EF : 60 % 10:37:24 LCA angiography performed. 10:37:46 Injector settings: Ml/sec: 3, Volume: 6, 10:38:13 RCA angiography performed. 10:38:30 Injector settings: Ml/sec: 3, Volume: 6, 10:38:33 Use device set TAU PCI 10:38:50 ACCDominant side:Co-Dominant 10:39:41 Versed 1 mg I.V. was administered by Iggy Saucedo RN; for sedation; Verbal order read back and verified. 10:39:47 Catheter exchanged over wire. 10:39:49 Proceeding to intervention. 10:40:02 CHOICE PT Extra Support 182cm wire ([id number]) opened to sterile field. 10:40:03 GUIDE 6FR XBLAD 3.5 catheter ([id number]) opened to sterile field. 10:40:06 INFLATOR Merit BasixCompak (MZ7640) opened to sterile field. 10:40:33 6 Fr XBLAD 3.5 guide catheter was inserted over the wire 10:42:11 CHOICE ES 182 wire advanced. 10:42:28 Heparin Bolus 4000 units I.V. was administered by Iggy Saucedo RN; for anticoagulation; Verbal order read back and verified. 10:42:53 Integrilin (Bolus 2mg/ml) 9.5 ml I.V. was administered by Iggy Saucedo RN; for antiplatelet therapy; Verbal order read back and verified. 10:43:22 Wire removed. 10:43:32 WHISPER 190cm wire ([id number]) opened to sterile field. 10:43:43 WHISPER 190 wire advanced. 10:43:56 Integrilin (Bolus 2mg/ml) 0.5 ml wasted was administered by Iggy Saucedo RN; to sharp's; Verbal order read back and verified. 10:44:41 Wire advanced across lesion. 10:44:47 Pre PCI Site: Council Circ has 90% stenosis. 10:46:18 Place stent Inflation Number: 1 A MERCEDES RX 2.5 x 12 stent ([id number]) was prepped and advanced across the Mid CX . The stent was deployed at 11 KAREN for 0:00 (min:sec) . 10:46:29 Stent catheter was removed intact over wire. 10:46:29 Wire removed. 10:47:05 Guide catheter removed. 10:47:18 GUIDE 6FR XBC 3 ([id number]) opened to sterile field. 10:47:26 Pre PCI Site: Council LAD has 90% stenosis. 10:47:31 6 Fr XBC 3 guide catheter was inserted over the wire 10:48:48 WHISPER 190 wire advanced. 10:49:07 Wire advanced across lesion. 10:50:19 Place stent Inflation Number: 1 A MERCEDES RX 3.0 x 12 stent ([id number]) was prepped and advanced across the Mid LAD . The stent was deployed at 17 KAREN for 0:00 (min:sec) . 10:50:39 Stent catheter was removed intact over wire. 10:50:40 Wire removed. 10:50:40 Guide catheter removed. 10:51:06 ZEPHYR REGULAR TR BAND (078366) opened to sterile field. 10:51:17 Sheath removed intact; hemostasis achieved with Mechanical Compression to the Right Radial artery. 10:51:20 Procedure ended.(Physican Out) 10:52:03 Fluoroscopy time 05.80 minutes. 10:52:10 Fluoroscopy dose: 516 mGy 10:52:10 Flurop Dose total: 516 10:52:16 Dose Area Product 53449 mGy/cm. 10:52:20 Contrast amount:Isovue 370 94ml. 10:52:22 Maximum allowable dose exceeded? No. 10:52:23 Sharps counted by scrub and verified by R.N. 10:52:27 Dante band inflated with 12cc of air. 10:52:31 Post Procedure Pulses reassessed and unchanged 10:52:34 Post procedure: right dorsailis pedis pulse 2+ Normal; easily identifiable; not easily obliterated. 10:52:37 Post-procedure physical assessment completed. ASA score P 2 - A patient with mild systemic disease as per Nakul Stewart MD. 10:52:40 Post procedure rhythm: unchanged. 10:52:43 Estimated blood loss: 10 ml 10:52:45 Post procedure instruction explained to patient.Patient verbalizes understanding. 10:52:45 Patient needs reinforcement of post procedure teaching. 10:54:12 Procedure type changed to Cath procedure, Diagnostic procedure, LHC, LHC w/Coronaries, Sedation Charges, Moderate Sedation up to 15 minutes, PCI procedure, Coronary Stent, Coronary Stent Initial x2, Hemochron ACT Test 10:55:21 Procedure and supply charges have been captured, reviewed, submitted and are correct. 10:55:25 Procedure Complication : No complications 10:55:29 [facility] Findings: MVD- PCI performed (see procedure note) 10:55:31 Plavix 600 mg P.O. was administered by Iggy Saucedo RN; for antiplatelet therapy; Verbal order read back and verified. 10:55:33 Operative report dictated upon procedure completion. 10:55:33 See physician's report for complete and final results. 10:55:36 Report given to Pre/Post Procedure Room. 10:55:39 Patient transfered to Pre/Post Procedure Room with Stretcher. 10:55:42 Vital chart was stopped 10:55:47 ACC-PCI Only Patient was given prescriptions, or instructed by Nakul Stewart MD to start/continue the following medications upon discharge: Plavix 10:58:38 Procedure ended. 10:58:38 Full Disclosure recording stopped 10:58:46 End room use (Document Last) 10:59:11 End room use (Document Last) 10:59:18 ACT drawn and resulted at 249 seconds. (normal therapeutic range 180-240 seconds). 10:59:29 End room use (Document Last) Intervention Summary Intervention Notes Time ActionType Lesion and Equipment Used Action# Pressure Duration Attributes 10:46:18 Place stent Mid CX MERCEDES RX 2.5 x 1 11 00:00 12 stent ([id number]) 10:50:19 Place stent Mid LAD MERCEDES RX 3.0 x 1 17 00:00 12 stent ([id number]) Device Usage Item Name Manufacture Quantity Catalog Number Hospital Part Current M inimal Lot# / Charge Number Stock Stock Serial# Code ACIST Syringe Acist 1 40279 937981 065404 251994 2 0 (31229) Medical Systems Inc Medline Cath Medline 1 [id number] 985441 16816 204838 5 Pack ([id number]) Bag Decanter Microtek 1 732278 14817 021786 5 () Medical Inc. ACIST Hand Acist 1 06266 469601 549195 089076 5 Control Medical (80796) Cactus Inc ACIST Manifold Acist 1 46545 165093 903138 497560 5 (55048Overwatch Systems Inc MBrace Wrist Advanced 1 140-0250-00 560319 41971 704776 5 Support Vascular ([id number]) Dynamics Tegaderm 4 x 4 3M 1 1626W 513967 764971 660072 5 (1626W) EMERALD Guide Cardinal 1 502-455 409392 413405 399173 5 Wire (502-455) Health SHEATH 6FR Cardinal 1 1028710 914818 6998383 212461 5 RAIN (9352128) Health DIAGNOSTIC Terumo 1 40-5013 703178 533307 473114 5 [place] 110cm 5 Fr catheter (944538) CHOICE PT [place] 1 [id number] 310487 195512 379265 5 Extra Support Scientific 182cm wire (2844874I3) GUIDE 6FR Cardinal 1 24934470 943060 530122 119666 1 0 XBLAD 3.5 Health catheter (59953548) INFLATOR Merit Merit 1 FI3307 551198 950111 102145 1 5 [employer] (TEN)[facility] ([place]8329) WHISPER 190cm Yoon 1 [id number] 023177 513451 181764 5 wire Vascular (6351259VC) MERCEDES RX 2.5 x Medtronic 1 [id number] 037152 8923615 284762 5 [id number] 12 stent ([id number]) GUIDE 6FR XBC Cardinal 1 23264455 584422 03552 345649 5 3 (30374992) Health MERCEDES RX 3.0 x Medtronic 1 [id number] 528436 3472092 982509 5 [id number] 12 stent ([id number]) ZEPHYR REGULAR Cardinal 1 436228 375263 5405680 955367 5 [facility] Accelerate Mobile Apps (628049) Signature Audit [place] Stage Time Signature Unsigned Intra-Procedure 11/18/2019 Loreta Dunbar 10:59:11 AM RT(R) Intra-Procedure 11/18/2019 Iggy 10:59:29 AM Sheryl PARDO Intra-Procedure 11/18/2019 Nakul Stewart 11:01:05 AM [facility] [address] [place] [address]
[2019-11-18] MEDS ORDERED: ZYTIGA250 MG PO (09:09)
[2019-11-18] MEDS ORDERED: PREDNISONE5 MG PO (09:10)
[2019-11-18] MEDS ORDERED: CARDURA2 MG PO (09:10)
[2019-11-18 09:26] VITALS: BP 131/78; Ht 185.4 cm; Wt 107.1 kg
[2019-11-18 09:37] LABS: BASOPHILS 0.3 % (0-2); EOSINOPHILS 1.1 % (0-7); HEMATOCRIT 44.5 % (42.0-54.0); HEMOGLOBIN 14.8 g/dL (13.5-17.5); IMMATURE GRANULOCYTES 0.8 % (0-5); LYMPHOCYTES 13.1 % (15-50); MCH 31.9 pg (26.0-34.0); MCHC 33.3 g/dL (31.0-37.0); MCV 95.9 fL (80.0-100.0); MEAN PLATELET VOLUME 9.7 fL (7.4-10.4); MONOCYTES 8.9 % (2-11); NEUTROPHILS 75.8 % (40-80); PLATELET COUNT 224 10x3/uL (130-400); RBC 4.64 10x6/uL (4.20-6.10); RDW 12.1 % (11.5-14.5); WBC 8.7 10x3/uL (4.8-10.8)
[2019-11-18 09:52] LABS: ANION GAP 16.3 mmol/L (8-16); CARBON DIOXIDE 22.7 mmol/L (21.0-32.0); CHOL - HDL RATIO 4.7 ratio (2.3-4.9); CREATININE - SERUM 1.7 mg/dL (0.6-1.3); LDL-HDL RATIO 2.4 ratio (1.5-3.5)
--- NOTE | 2019-11-18 11:10 | NUR ---
REC TO ROOM VIA STRETCHER FROM LAB. R RADIAL BAND INTACT OVER R RADIAL ACCESS SITE. PULSE PALPABLE ABOVE AND BELOW BAND. NSR 81, BP 143/83, SAT 94% 2LNC
[2019-11-18] MEDS ORDERED: BAYER CHEWABLE81 MG PO (11:31)
[2019-11-18] MEDS ORDERED: PLAVIX75 MG PO (11:31)
--- NOTE | 2019-11-18 11:35 | NUR ---
DR YING HERE SPEAKING W PT. WILL SCHEDULE FOR PTCA ON Saturday11/23/19 PER HIS ORDER.
--- NOTE | 2019-11-18 12:00 | NUR ---
R WRIST ZBAND INTACT, NO S/S BLEEDING OR HEMATOMA. RADIAL PULSE PALPABLE, BRISK CAP REFILL.
--- NOTE | 2019-11-18 12:30 | NUR ---
R WRIST ZBAND INTACT, NO S/S BLEEDING OR HEMATOMA. TERESITA DIET SODA PER REQUEST. SANDWICH PROVIDED. ASSISTING.
--- NOTE | 2019-11-18 13:00 | NUR ---
R WRIST Z BAND INTACT, NO S/S BLEEDING OR HEMATOMA. CAP REFILL BRISK. BP 111/66, NSR 71, SAT 97% ON 2LNC.
--- NOTE | 2019-11-18 13:32 | NUR ---
R ZBAND 1ML AIR REMOVED. NO S/S BLEEDING OR HEMATOMA.
[2019-11-18] MEDS ORDERED: PRAVACHOL40 MG PO (13:43)
[2019-11-18] MEDS ORDERED: TEMAZEPAM30 MG (13:43)
--- NOTE | 2019-11-18 13:45 | NUR ---
2ML AIR REMOVED ZBAND. NO S/S BLEEDING OR HEMATOMA.
--- NOTE | 2019-11-18 14:08 | NUR ---
3ML AIR REMOVED FROM ZBAND. NO S/S BLEEDING OR HEMATOMA.
--- NOTE | 2019-11-18 14:36 | NUR ---
Z BAND DEFLATED. NO S/S BLEEDING OR HEMATOMA. IV DC TIP INTACT. MONITORING DC. PT DRESSING W 'S HELP.
--- NOTE | 2019-11-18 14:45 | NUR ---
PT AMBULATED INDEPENDENTLY TO REST ROOM AND BACK TO ROOM. DISCHARGE INSTRUCTIONS REVIEWED W PT AND INCLUDING NEW PRESCRIPTIONS AND APPT FOR INTERVENTION ON SATURDAY. PT DC HOME VIA WHEELCHAIR TO PRIVATE VEHICLE W , PT HAS ALL BELONGINGS.
== END 2019-11-18 14:57 | disposition home or self-care (01) ==
LOC: D.CATH 08:12
PROVIDERS: ATTEND Internal Medicine Interventional Cardiology
DX: I25.119 Atherosclerotic heart disease of native coronary artery with unspecified angina pectoris (principal); I10 Essential (primary) hypertension; R06.09 Other forms of dyspnea; R53.81 Other malaise

== ENCOUNTER 2019-11-23 08:13 | Outpatient (CLI) | payer BC, MEDICARE ==
[~2019-11-23] VITALS: Ht 185.4 cm; Wt 106.8 kg
--- NOTE | ~2019-11-23 | HEMODYNAMI ---
PATIENT:MILADYS CHAVEZ MEDICAL RECORD: [id number] : 48 LOCATION:[facility] ADMISSION DATE: 11/23/19 Generatedon:11/23/201911:01 Patient name: MILADYS CHAVEZ Patient #: [id number] SSN: [id number] : 1950 Date of study: 11/23/2019 Page: Of Hemodynamic Procedure Report Patient Data Patient Demographics Procedure consent was obtained First Name: MILADYS Gender: Male Last Name: SCOTT : 1950 [facility] Initial: TIA Age: 69 year(s) Patient #: [id number] Race: SSN: [id number] Additional ID: [id number] Contact details Address: [address] [place] [address] ROAD State: [place] City: [place] Zip code: [address] Past Medical History Performed procedures and imaging results Date Procedure Procedure Results Comments PCI History of disease Date Diagnosis Comments CAD Allergies Allergen Reaction Date Comments Reported Sulfa drugs 11/23/2019 Admission Admission Data Admission Date: 11/23/2019 Admission Time: 8:13 Arrival Date: 11/23/2019 Arrival Time: 0:00 Height (in.): 72.83 BSA: 2.3 (m2) Height (cm.): 185 BMI: 31.26 (kg/m2) Weight (lbs.): 235.9 Weight (kg.): 107 Lab Results Lab Result Date: 11/23/2019 Lab Result Time: 0:00 Biochemistry Name Units Result Min Max BUN mg/dl 25 --(----)-* 7 18 Creatinine mg/dl 2 --(----)-* 0.6 1.3 eGFR ml/min 35 *-(----)-- 90 120 NONAFRICAN CBC Name Units Result Min Max Hematocrit % 43 --(*---)-- 42 54 Hemoglobin g/dl 14.4 --(*---)-- 13.5 17.5 Procedure Procedure Types Cath Procedure PCI Procedure Coronary Stent Coronary Stent Initial Hemochron ACT Test Procedure Description Procedure Date Procedure Date: 11/23/2019 Procedure Start Time: 10:45 Procedure End Time: 10:54 Procedure Staff Name Function Nakul Stewart MD Performing Physician Merari Holley RN Nurse Yarely Moe RT Scrub Jalyn Gilbert RT Monitor Procedure Data Cath Procedure Fluoroscopy Diagnostic fluoroscopy Total fluoroscopy Time: 1.4 time: 1.4 min min Diagnostic fluoroscopy Total fluoroscopy dose: 208 dose: 208 mGy mGy Contrast Material Contrast Material Type Amount (ml) Isovue 300 26 Entry Location Entry Primary Successful Side Size Upsize Upsize Entry Closure Succes sful Closure Location (Fr) 1 (Fr) 2 (Fr) Remarks Device Remarks Femoral Right 7 Fr Exoseal artery Short Estimated blood loss: 10 ml Procedure Complications No complications Procedure Medications Medication Administration Route Dosage 0.9% NaCl I.V. 100 ml/hr Oxygen etCO2 Nasal cannula 2 l/min Lidocaine 2% added to field 20 Heparin Flush Bag added to field 2 bags (1000units/500ml NS) Radial Cocktail added to field 1 syringe (Verapamil 2mg/Nitro 400mcg/Heparin 1500units) Versed I.V. 2 mg Fentanyl I.V. 50 mcg Versed I.V. 2 mg Fentanyl I.V. 50 mcg Heparin Bolus I.V. 4000 units Versed I.V. 1 mg Fentanyl I.V. 50 mcg Hemodynamics Rest BSA: 2.3 (m2) HGB: 14.4 (g/dl) O2 Consumption: Estimated: 271.39 (ml/min) O2 Con sumption indexed: Estimated:118 (ml/min/m) Heart Rate: 76 (bpm) Snapshots Pre Cath Intra NCS Post Cath Vital Signs Time Heart Resp SPO2 etCO2 NIBP (mmHg) Rhythm Pain Sedation Rate (ipm) (%) (mmHg) Status Level (bpm) 10:30:01 69 12 97 23.3 131/76(102) NSR 0 (11) 10(A) , No pain 10:34:07 71 16 98 30.1 133/78(102) NSR 0 (11) 10(A) , No pain 10:38:13 72 15 97 15 127/80(93) NSR 0 (11) 10(A) , No pain 10:42:18 67 14 98 2.2 120/80(90) NSR 0 (11) 10(A) , No pain 10:46:22 66 15 97 15 118/74(87) NSR 0 (11) 10(A) , No pain 10:50:22 73 13 96 26.3 120/79(105) NSR 0 (11) 10(A) , No pain 10:54:27 53 15 90 27.8 121/73(100) NSR 0 (11) 10(A) , No pain Medications Time Medication Route Dose Verified Delivered Reason Not es Effectiveness by by 10:29:01 0.9% NaCl I.V. 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 2 mg Nakul Merari for sedation Pat Holley RN 10:40:28 Fentanyl I.V. 50 mcg Nakul Merari for sedation Pat Holley RN 10:44:25 Versed I.V. 2 mg Nakul Merari for sedation Pat Holley RN 10:44:29 Fentanyl I.V. 50 mcg Nakul Merari for sedation Pat Holley RN 10:46:10 Heparin Bolus I.V. 4000 Nakul Merari for pool ified units Pat Holley anticoagulation with Dr. EDVIN Stewart 10:48:52 Versed I.V. 1 mg Nakul Merari for sedation Pat Holley RN 10:48:58 Fentanyl I.V. 50 mcg Nakul Merari for sedation Pat Holley RN Procedure Log Time Note 9:51:01 Informed consent obtained and on chart 9:54:51 Procedure Status Elective Heart Cath (OP), PCI. 9:54:52 Time tracking: Regular hours (M-F 7:00 - 5:00) 9:54:56 Plan of Care:Hemodynamics will remain stable., Cardiac rhythm will remain stable., Comfort level will be maintained., Respiratory function will remain adequate., Patient/ family verbilizes understanding of procedure., Procedure tolerated without complication., Recovers from procedure without complications.. 10:04:07 Lab Result : Creatinine 2 mg/dl 10::07 Lab Result : BUN 25 mg/dl 10::07 Lab Result : eGFR NONAFRICAN 35 ml/min 10:: Lab Result : Hematocrit 43 % 10::07 Lab Result : Hemoglobin 14.4 g/dl 10:07:30 Patient Weight : 235.9 lbs 10:08:20 Patient Height : 72.83 inches 10::10 Arrival Date: 11/23/2019 12:00:00 AM 10:10:02 Patient allergic to Sulfa drugs 10:20:09 Jalyn Gilbert RT(R) sent for patient. Start room use. 10:28:54 Vital chart was started 10:29:01 0.9% NaCl 100 ml/hr I.V. was administered by Merari Holley RN; used for procedure; Verbal order read back and verified. 10:29:09 Oxygen 2 l/min etCO2 Nasal cannula was administered by Merari Holley RN; used for procedure; Verbal order read back and verified. 10:29:17 Lidocaine 2% 20ml vial added to field was administered by Nakul Stewart MD; for local anesthetic; Verbal order read back and verified. 10:29:22 Heparin Flush Bag (1000units/500ml NS) 2 bags added to field was administered by Nakul Stewart MD; used for procedure; Verbal order read back and verified. 10:31:20 Patient received from Pre/Post Procedure Room to CCL 1 Alert and oriented. Tansferred to table in Supine position. 10:31:22 Warm blankets applied, and nando hugger turned on for patient comfort. 10:31:22 Correct patient and procedure confirmed by team. 10:31:22 ECG and BP/O2 sat monitors applied to patient. 10:32:23 Baseline sample Acquired. 10:32:26 Rhythm: sinus rhythm 10:32:27 Full Disclosure recording started 10:32:30 H&P Date Dictated: 11/23/2019 New H&P dictated by physician.. 10:32:31 Pre-procedure instructions explained to patient. 10:32:32 Pre-op teaching completed and patient verbalized understanding. 10:32:33 Family available per phone call. 10:32:47 Patient NPO since Midnight. 10:32:51 Is the patient allergic to Iodine/contrast media? No. 10:32:52 Is patient on blood thinner?Yes 10:32:55 ACC The patient was administered the following blood thiners within the last 24 hours: ACCPlavix 10:32:57 Patient diabetic? No. 10:33:00 Previous problem with sedation/anesthesia? No ? 10:33:01 Snore? Yes 10:33:01 Sleep apnea? No 10:33:03 Deviated septum? No 10:33:03 Opens mouth fully? Yes 10:33:04 Sticks out tongue? Yes 10:33:06 Airway obstruction? No ? 10:33:08 Dentures? No ? 10:33:11 Pre procedure: right dorsailis pedis pulse 1+ Palpable, but thready & weak; easily obliterated 10:33:12 Modified Coy's test Ulnar < 7 seconds 10:33:14 Patient pain scale 0/10 ?. 10:33:19 IV patent on arrival in left hand with 0.9% NaCl at O. 10:33:21 Lab results completed and on chart. 10:33:26 Stress Test: no; N/A PCI 10:33:31 Right Radial & Right Groin area was prepped with chlora-prep and draped in sterile fashion 10:33:31 Alarms reviewed by R. N. 10:33:32 Sharps counted by scrub and verified by R.N. 10:38:01 Risk of Mortality: .3 10:38:15 Risk of blood transfusion: .4 10:38:18 Risk of BINH: 2.2 10:38:20 Radial Cocktail (Verapamil 2mg/Nitro 400mcg/Heparin 1500units) 1 syringe added to field was administered by Nakul Stewart MD; used for procedure; Verbal order read back and verified. 10:38:24 Use device set CATH PACK 10:38:25 ACIST Syringe (28967) opened to sterile field. 10:38:25 ACIST Hand Control (62617) opened to sterile field. 10:38:26 ACIST Manifold (70166) opened to sterile field. 10:38:26 Medline Cath Pack ([id number]) opened to sterile field. 10:38:26 Bag Decanter () opened to sterile field. 10:38:27 EMERALD Guide Wire (779-580) opened to sterile field. 10:39:04 CHOICE PT Extra Support 182cm wire ([id number]) opened to sterile field. 10:39:04 INFLATOR Merit BasixCompak (YK5449) opened to sterile field. 10:40:02 --------ALL STOP TIME OUT------ 10:40:03 Final Timeout: patient, procedure, and site verified with staff and physician. All members of the team are in agreement. 10:40:05 Right Radial & Right Groin site verified by team. 10:40:08 Fire Safety Assessment: A--An alcohol-based skin anteseptic being used preoperatively., C--Open oxygen or nitrous oxide is being used., D--An ESU, laser, or fiber-optic light is being used. 10:40:11 Physical assessment completed. ASA score P 2 - A patient with mild systemic disease as per Nakul Stewart MD. 10:40:20 3b) 30-44 Moderately reduced kidney function. 10:40:23 Versed 2 mg I.V. was administered by Merari Holley RN; for sedation; Verbal order read back and verified. 10:40:25 Maximum allowable contrast dose (3.7 X eGFR X 0.75)97 ml. 10:40:28 Fentanyl 50 mcg I.V. was administered by Merari Holley RN; for sedation; Verbal order read back and verified. 10:40:28 Sedation plan: IV Moderate Sedation Medication:Versed, Fentanyl 10:44:25 Versed 2 mg I.V. was administered by Merari Holley RN; for sedation; Verbal order read back and verified. 10:44:29 Fentanyl 50 mcg I.V. was administered by Merari Holley RN; for sedation; Verbal order read back and verified. 10:44:43 Procedure started. 10:45:04 SHEATH 7FR [place]ina (YGW856) opened to sterile field. 10:45:04 GUIDE 7FR HS II SH catheter ([id number]) opened to sterile field. 10:45:18 Local anesthetic to right femoral artery with Lidocaine 2% by Nakul Stewart MD.INITIAL ACCESS ONLY 10:45:27 A 7 Fr Short sheath was inserted into the Right Femoral artery 10:46:02 7 Fr HS 2 SH guide catheter was inserted over the wire 10:46:10 Heparin Bolus 4000 units I.V. was administered by Merari Holley RN; for anticoagulation; verified with Dr. Stewart Verbal order read back and verified. 10:46:37 CHOICE ES 182 wire advanced. 10:47:17 Pre PCI Site: Upper [place] RCA has 80% stenosis. 10:47:21 Wire advanced across lesion. 10:48:11 Place stent Inflation Number: 1 A MERCEDES RX 2.5 x 15 stent ([id number]) was prepped and advanced across the Dist RCA . The stent was deployed at 13 KAREN for 0:00 (min:sec) . 10:48:21 Stent catheter was removed intact over wire. 10:48:27 Wire removed. 10:48:28 Guide catheter removed. 10:48:41 EXOSEAL 7Fr (EX700) opened to sterile field. 10:48:52 Versed 1 mg I.V. was administered by Merari Holley RN; for sedation; Verbal order read back and verified. 10:48:58 Fentanyl 50 mcg I.V. was administered by Merari Holley RN; for sedation; Verbal order read back and verified. 10:49:38 Sheath removed intact; hemostasis achieved with Exoseal to the Right Femoral artery. 10:49:48 Procedure ended.(Physican Out) 10:50:44 Fluoroscopy time 01.40 minutes. 10:50:47 Flurop Dose total: 208 10:50:47 Fluoroscopy dose: 208 mGy 10:50:53 Dose Area Product 81035 mGy/cm. 10:50:57 Contrast amount:Isovue 300 26ml. 10:51:00 Maximum allowable dose exceeded? No. 10:51:02 Sharps counted by scrub and verified by R.N. 10:51:06 Post-op/insertion site Right Femoral artery dressed using a 4 x 4 and Tegaderm. 10:51:09 Post-procedure physical assessment completed. ASA score P 2 - A patient with mild systemic disease as per Nakul Stewart MD. 10:51:22 Post procedure rhythm: sinus rhythm 10:51:26 Estimated blood loss: 10 ml 10:51:27 Post procedure instruction explained to patient.Patient verbalizes understanding. 10:51:28 Patient needs reinforcement of post procedure teaching. 10:51:39 Procedure type changed to Cath procedure, PCI procedure, Coronary Stent, Coronary Stent Initial, Hemochron ACT Test 10:54:10 ACT drawn and resulted at 244 seconds. (normal therapeutic range 180-240 seconds). 10:54:36 Procedure and supply charges have been captured, reviewed, submitted and are correct. 10:54:39 Procedure Complication : No complications 10:54:44 Vital chart was stopped 10:54:46 [facility] Findings: MVD- PCI performed (see procedure note) 10:54:48 Operative report dictated upon procedure completion. 10:54:48 See physician's report for complete and final results. 10:54:50 Report given to Pre/Post Procedure Room. 10:54:54 Patient transfered to Pre/Post Procedure Room with Bed. 10:54:56 Procedure ended. 10:54:56 Full Disclosure recording stopped 10:55:09 ACC-PCI Only Patient was given prescriptions, or instructed by Nakul Stewart MD to start/continue the following medications upon discharge: Plavix 10:55:10 End room use (Document Last) Intervention Summary Intervention Notes Time ActionType Lesion and Equipment Used Action# Pressure Duration Attributes 10:48:11 Place stent Dist RCA MERCEDES RX 2.5 x 1 13 00:00 15 stent ([id number]) Device Usage Item Name Manufacture Quantity Catalog Number Hospital Part Current M inimal Lot# / Charge Number Stock Stock Serial# Code ACIST Syringe Acist 1 83419 [id number] 289544 903325 2 0 (44235) Medical Systems Inc ACIST Hand Acist 1 26677 430710 897564 789677 5 Control Medical (66999) Systems Inc ACIST Manifold Acist 1 70070 765494 956942 539582 5 (50316) Medical Systems Inc Medline Cath Medline 1 [id number] 790159 49928 268208 5 Pack ([id number]) Bag Decanter Microtek 1 182514 28824 953119 5 () Medical Inc. EMERALD Guide Cardinal 1 328-170 455352 818857 819897 5 Wire (429-485) Health CHOICE PT [place] 1 [id number] 969597 972426 494047 5 Extra Support Scientific 182cm wire ([id number]) INFLATOR Merit Merit 1 WA4727 291522 568176 439601 1 5 [facility] (UG0186) SHEATH 7FR Terumo 1 PFD004 533501 032568 484411 5 Medina (XND310) GUIDE 7FR HS Medtronic 1 [id number] 912608 558155 803942 0 II SH catheter ([id number]) MERCEDES RX 2.5 x Medtronic 1 [id number] 036063 2755206 881755 5 [id number] 15 stent ([id number]) EXOSEAL 7Fr Cardinal 1 EX700 436264 045812 339822 5 (EX700) Health Signature Audit [place] Stage Time Signature Unsigned Intra-Procedure 11/23/2019 Merari Holley 10:58:52 AM RN Intra-Procedure 11/23/2019 Jalyn Gilbert 11:00:31 AM RT(R) Intra-Procedure 11/23/2019 Nakul Stewart 11:01:23 AM Signatures Performing Physician : Signature : Nakul Stewart MD Date : Time : Nurse : Merari Holley RN Signature : Date : Time : Monitor : Jalyn Gilbert Signature : RT Date : Time : [facility] [address] [place] [address]
--- NOTE | ~2019-11-23 | OP ---
PATIENT NAME: MILADYS CHAVEZ MEDICAL RECORD: [id number] :48 LOCATION:D[facility] ADMISSION DATE: SURGEON: LAURA YING MD DATE OF OPERATION: 11/23/2019 PROCEDURES: 1. PTCA stent RCA. 2. Selective coronary angiography. INDICATION: Angina and coronary artery disease. PROCEDURE IN DETAIL: After informed consent was obtained and after a detailed description of the risks, benefits as well as alternative therapies, the patient elected to proceed with angiogram and angioplasty. The right femoral area was prepped and draped in normal sterile fashion. Right femoral artery was cannulated via modified Seldinger technique with placement of 7-Gabonese sheath. All catheters exchanged through this sheath. FINDINGS: The right coronary has 80% stenosis in the mid distal vessel. This was addressed with a 2.5 x 15 mm William. Result was 0% residual stenosis. OVERALL IMPRESSION: Successful percutaneous transluminal coronary angioplasty stent of the right coronary artery going from 80% initial stenosis to 0% residual. TRANSINT:[id number] Voice Confirmation ID: [id number] DOCUMENT ID: [id number] LAURA YING MD CC: [id number] DICTATION DATE: 11/23/19 1051 SCRAP MATERIALS BUYER: 11/23/19 1519 DEP CLI 11/23/19 [place] [id number] [place] [id number]
--- NOTE | ~2019-11-23 | HP ---
PATIENT: MILADYS CHAVEZ MEDICAL RECORD: [id number] ACCOUNT: [id number] LOCATION:[facility] : 48 ADMISSION DATE: 11/23/19 PCP: LYNN HAMILTON MD HISTORY AND PHYSICAL EXAMINATION DATE OF ADMISSION: 11/23/2019 ADMITTING DIAGNOSES: 1. Angina. 2. Coronary artery disease. 3. Recent percutaneous transluminal coronary angioplasty stent left anterior descending and circumflex with concomitant disease of right coronary artery. 4. Hypertension. 5. Hyperlipidemia. HISTORY OF PRESENT ILLNESS: Mr. Chavez presented last week with anginal symptomatology, found to have 3-vessel coronary artery disease, underwent PTCA stent of his LAD and circumflex. He has had an improvement in his angina. Continues to have angina. He has significant disease of the distal RCA. He is now brought back for PTCA stent of the distal RCA. PHYSICAL EXAMINATION: CONSTITUTIONAL/GENERAL APPEARANCE: Well nourished, well developed, appears stated age. EYES: Lids and conjunctivae noninjected. No discharge. No pallor. ENT: Lips within normal limit. No cyanosis. No pallor. NECK: Carotid arteries, bilateral normal upstroke. No bruits. No thrills. No jugular venous pressure or distention. CERVICAL LYMPH NODES: Nontender. Nonenlarged. THYROID: Not enlarged. No nodules. CARDIOVASCULAR: Precordial exam, nondisplaced. No heaves or pericardial thrills. Rate and rhythm, regular. Heart sounds, normal S1, normal S2. No S3, no gallop, no rub. Systolic murmur, not heard. Diastolic murmur, not heard. RESPIRATORY: Respiratory effort, unlabored. Normal curvature. No thoracic deformity. No chest wall tenderness. Percussion, resonant. Auscultation, clear. No wheezes, no rales, no rhonchi. ABDOMEN: Soft, nondistended, nontender. No abdominal pain, no vomiting and normal appetite. MUSCULOSKELETAL: No joint tenderness, normal gait, normal tone. SKIN: Warm and dry. OVERALL IMPRESSION: Anginal symptomatology with disease of the right coronary artery. We will proceed with percutaneous transluminal coronary angioplasty stent of the right coronary artery. TRANSINT:[id number] Voice Confirmation ID: [id number] DOCUMENT ID: [id number] HISTORY AND PHYSICAL [id number] MILADYS CHAVEZ LAURA YING MD CC: [id number] DICTATION DATE: 11/23/19 1042 CASH VAN SALESPERSON: 11/23/19 1139 [facility] [address] [place] [id number]
[~2019-11-23 08:13] MED LIST changes: +BAYER CHEWABLE81 MG PO; +CARDURA2 MG PO; +PRAVACHOL40 MG PO; +PREDNISONE5 MG PO; +TEMAZEPAM30 MG; +ZYTIGA250 MG PO
[2019-11-23 09:00] VITALS: BP 122/72; Ht 185.4 cm; Wt 106.8 kg
[2019-11-23 09:11] LABS: BASOPHILS 0.3 % (0-2); EOSINOPHILS 1.9 % (0-7); HEMOGLOBIN 14.4 g/dL (13.5-17.5); LYMPHOCYTES 14.5 % (15-50); MCH 32.1 pg (26.0-34.0); MCHC 33.5 g/dL (31.0-37.0); MCV 95.8 fL (80.0-100.0); MEAN PLATELET VOLUME 9.7 fL (7.4-10.4); MONOCYTES 8.6 % (2-11); NEUTROPHILS 73.7 % (40-80); PLATELET COUNT 218 10x3/uL (130-400); RBC 4.49 10x6/uL (4.20-6.10); RDW 12.2 % (11.5-14.5)
[2019-11-23 09:22] LABS: ANION GAP 16.9 mmol/L (8-16); CALCIUM 8.4 mg/dL (8.5-10.1); CARBON DIOXIDE 20.7 mmol/L (21.0-32.0); POTASSIUM - SERUM 3.6 mmol/L (3.5-5.1)
--- NOTE | 2019-11-23 11:05 | NUR ---
REC'D TO ROOM 5 VIA STRETCHER FROM DIAGNOSTIC TECHNICIAN. MONITORS ESTAB. PT DROWSY, VSS. SEE ZINC PLATER. ALARMS ON AND C/L IN REACH.
--- NOTE | 2019-11-23 11:20 | NUR ---
R GROIN SITE SOFT, NO S/S BLEEDING OR HEMATOMA. UPDATED OVER PHONE AND PLAN FOR DISCHARGE AT 1500.
--- NOTE | 2019-11-23 11:50 | NUR ---
R GROIN SITE SOFT, C/D/I, NO S/S BLEEDING OR HEMATOMA. VSS. PT FALLS BACK TO SLEEP EASILY. ALARMS ON AND C/L IN REACH.
--- NOTE | 2019-11-23 12:20 | NUR ---
DR. YING IN TO UPDATE PT. VSS. R GROIN SITE SOFT, C/D/I.
--- NOTE | 2019-11-23 12:50 | NUR ---
R GROIN SITE SOFT, NO S/S BLEEDING OR HEMATOMA. VSS. PT DENIES PAIN OR NEEDS. C/L IN REACH.
--- NOTE | 2019-11-23 13:30 | NUR ---
R GROIN SITE SOFT, NO S/S BLEEDING OR HEMATOMA. VSS. PT WATCHING TV, DENIES NEEDS.
--- NOTE | 2019-11-23 13:59 | NUR ---
R GROIN SITE SOFT, C/D/I. HOB ELEVATED. SANDWICH TRAY AND COLA PROVIDED. PT DENIES OTHER NEEDS. C/L IN REACH.
--- NOTE | 2019-11-23 14:04 | NUR ---
SPOKE WITH SIG OTHER OVER PHONE WHO WILL PICK PT UP AT 1530, D/C INSTRUCTIONS/LIMITATIONS/MEDS REVIEWED AND SHE VERBALIZES UNDERSTANDING.
--- NOTE | 2019-11-23 14:44 | NUR ---
R GROIN SITE SOFT, C/D/I. PIV D/C'D INTACT, DSG APPLIED. PT ALLOWED UP TO GET DRESSED.
--- NOTE | 2019-11-23 15:03 | NUR ---
ALL DISCHARGE INSTRUCTIONS REVIEWED WITH PATIENT. PT D/C'D VIA WC TO PRIVATE VEHICLE WITH - SHE HAS REVIEWED AND VERBALIZES UNDERSTANDING OF D/C TEACHING ALSO.
== END 2019-11-23 15:00 | disposition home or self-care (01) ==
LOC: D.CATH 08:13
PROVIDERS: ATTEND Internal Medicine Interventional Cardiology
DX: I25.119 Atherosclerotic heart disease of native coronary artery with unspecified angina pectoris (principal); I10 Essential (primary) hypertension; E78.5 Hyperlipidemia, unspecified

== ENCOUNTER → 2020-02-11 09:52 | Outpatient (CLI) | payer BC, MEDICARE ==
[2019-11-23 09:00] VITALS: BMI 31.0
== END | disposition home or self-care (01) ==
LOC: D.HCCARDIO 09:52
PROVIDERS: ATTEND Internal Medicine Cardiovascular Disease
DX: I25.10 Atherosclerotic heart disease of native coronary artery without angina pectoris (principal)

== ENCOUNTER 2020-02-22 11:14 | Outpatient (CLI) | payer BC, MEDICARE ==
[~2020-02-22] VITALS: Ht 185.4 cm; Wt 106.8 kg
--- NOTE | ~2020-02-22 | HEMODYNAMI ---
PATIENT:MILADYS CHAVEZ MEDICAL RECORD: [id number] : 48 LOCATION:[facility] ADMISSION DATE: 02/22/20 Generatedon:02/22/202014:02 Patient name: MILADYS CHAVEZ Patient #: [id number] SSN: [id number] : 1950 Date of study: 02/22/2020 Page: Of Hemodynamic Procedure Report Patient Data Patient Demographics Procedure consent was obtained First Name: MILADYS Gender: Male Last Name: SCOTT : 1950 [facility] Initial: TIA Age: 70 year(s) Patient #: [id number] Race: SSN: [id number] Additional ID: [id number] Contact details Address: [address] [place] [address] ROAD State: [place] City: [place] Zip code: [address] Past Medical History History of disease Date Diagnosis Comments CAD Allergies Allergen Reaction Date Comments Reported Sulfa drugs 11/23/2019 Sulfa drugs 02/22/2020 Admission Admission Data Admission Date: 02/22/2020 Admission Time: 11:14 Arrival Date: 02/22/2020 Arrival Time: 0:00 Height (in.): 72.83 BSA: 2.3 (m2) Height (cm.): 185 BMI: 31.26 (kg/m2) Weight (lbs.): 235.9 Weight (kg.): 107 Lab Results Lab Result Date: 02/22/2020 Lab Result Time: 0:00 Biochemistry Name Units Result Min Max BUN mg/dl 25 --(----)-* 7 18 Creatinine mg/dl 1.7 --(----)-* 0.6 1.3 eGFR ml/min 42 *-(----)-- 90 120 NONAFRICAN CBC Name Units Result Min Max Hematocrit % 44.3 --(*---)-- 42 54 Hemoglobin g/dl 14.9 --(-*--)-- 13.5 17.5 Procedure Procedure Types Cath Procedure Diagnostic Procedure [facility] w/Coronaries Sedation Charges Moderate Sedation up to 30 minutes Procedure Description Procedure Date Procedure Date: 02/22/2020 Procedure Start Time: 13:32 Procedure End Time: 14:01 Procedure Staff Name Function Philip Jha MD Performing Physician Yarely Moe RT Monitor Jalynbrendan Gilbert RT Baker Test Loreta Dunbar RT Scrub Ángel Acosta RN Nurse Procedure Data Cath Procedure Fluoroscopy Diagnostic fluoroscopy Total fluoroscopy Time: time: 10.9 min 10.9 min Diagnostic fluoroscopy Total fluoroscopy dose: dose: 1926 mGy 1926 mGy Contrast Material Contrast Material Type Amount (ml) Isovue 370 142 Entry Location Entry Primary Successful Side Size Upsize Upsize Entry Closure Trujillo ccessful Closure Location (Fr) 1 (Fr) 2 (Fr) Remarks Device Remarks Radial Right 6 Fr Mechanical artery Short Compression Estimated blood loss: 5 ml Diagnostic catheters Device Type Used For End Catheter Placement DIAGNOSTIC Ovidio 110cm Procedure 5Fr catheter ([id number]) DIAGNOSTIC [place] 110cm 5 Procedure Fr catheter ([id number]) DIAGNOSTIC AR MOD 5Fr Procedure Catheter ([id number]) Procedure Complications No complications Procedure Medications Medication Administration Route Dosage Oxygen etCO2 Nasal cannula 2 l/min Lidocaine 2% added to field 20 Heparin Flush Bag added to field 2 bags (1000units/500ml NS) 0.9% NaCl I.V. 100 ml/hr Radial Cocktail added to field 1 syringe (Verapamil 2mg/Nitro 400mcg/Heparin 1500units) Radial Cocktail I.A. 1 syringe (Verapamil 2mg/Nitro 400mcg/Heparin 1500units) Versed I.V. 1 mg Fentanyl I.V. 50 mcg Versed I.V. 1 mg Fentanyl I.V. 50 mcg Versed I.V. 1 mg Fentanyl I.V. 50 mcg Versed I.V. 1 mg Fentanyl I.V. 50 mcg Hemodynamics Rest BSA: 2.3 (m2) HGB: 14.9 (g/dl) O2 Consumption: Estimated: 275.28 (ml/min) O2 Con sumption indexed: Estimated:119.69 (ml/min/m) Heart Rate: 81 (bpm) Pressure Samples Time Site Value (mmHg) Purpose Heart Use Rate(bpm) 13:38 LV 111/2,16 Snapshot 78 13:39 AO 116/63(93) Pullback 85 13:39 LV 127/-11,5 Pullback 85 Gradients Valve Time Site 1 Site 2 Mean SEP/DFP Peak To Heart Use (mmHg) (sec/min) Peak Rate (mmHg) (bpm) Aortic 13:39 LV AO 11 6 11 85 127/-11,5 116/63(93) Calculations Valve P-P Mean Valve Index Valve Source Name Gradient Area Flow (cm2) Aortic 11 11 11 11 Snapshots Pre Cath Intra NCS Post Cath Vital Signs Time Heart Resp SPO2 etCO2 NIBP (mmHg) Rhythm Pain Sedation Rate (ipm) (%) (mmHg) Status Level (bpm) 13:14:25 74 13 96 0 138/83(116) NSR 0 (11) 10(A) , No pain 13:18:41 73 17 95 28.4 136/88(109) NSR 0 (11) 10(A) , No pain 13:22:54 75 13 93 16.4 124/87(100) NSR 0 (11) 10(A) , No pain 13:27:05 69 14 93 32.1 123/81(104) NSR 0 (11) 10(A) , No pain 13:31:19 68 17 94 29.9 123/80(108) NSR 0 (11) 10(A) , No pain 13:35:37 73 14 94 29.9 92/55(68) NSR 0 (11) 9(A) , No pain 13:39:39 77 14 93 29.1 112/73(90) NSR 0 (11) 9(A) , No pain 13:43:45 74 13 94 30.6 129/85(98) NSR 0 (11) 9(A) , No pain 13:47:59 72 13 94 32.1 137/80(110) NSR 0 (11) 9(A) , No pain 13:52:17 71 14 95 32.1 131/84(107) NSR 0 (11) 10(A) , No pain 13:56:29 66 14 95 0 141/82(109) NSR 0 (11) 10(A) , No pain 14:00:47 75 13 96 24.6 137/80(113) NSR 0 (11) 10(A) , No pain Medications Time Medication Route Dose Verified Delivered Reason Notes Effectiveness by by 13:18:34 Oxygen etCO2 2 l/min Philip Buffie used for Nasal Jha MD 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 100 Philip Buffie Per ml/hr Abhijeet Acosta RN physician 13:23:52 Radial Cocktail added 1 Philip Philip for (Verapamil to syringe Abhijeet Jha MD vasodilation 2mg/Nitro field 400mcg/Heparin 1500units) 13:31:39 Versed I.V. 1 mg Philip Buffie for sedation Abhijeet Acosta RN 13:31:45 Fentanyl I.V. 50 mcg Philip Buffie for sedation Abhijeet Acosta RN 13:34:32 Radial Cocktail I.A. 1 Philip Philip for (Verapamil syringe Abhijeet Jha MD vasodilation 2mg/Nitro 400mcg/Heparin 1500units) 13:35:29 Versed I.V. 1 mg Philip Buffie for sedation Abhijeet Acosta RN 13:35:34 Fentanyl I.V. 50 mcg Philip Buffie for sedation Abhijeet Acosta RN 13:40:23 Versed I.V. 1 mg Philip Buffie for sedation Abhijeet Acosta RN 13:40:27 Fentanyl I.V. 50 mcg Philip Buffie for sedation Abhijeet Acosta RN 13:47:31 Versed I.V. 1 mg Philip Buffie for sedation Abhijeet Acosta RN 13:47:34 Fentanyl I.V. 50 mcg Philip Buffie for sedation Abhijeet Acosta RN Procedure Log Time Note 13:00:00 Informed consent obtained and on chart 13:01:21 Procedure Status Elective Heart Cath (OP). 13:01:22 Time tracking: Regular hours (M-F 7:00 - 5:00) 13:01:25 Plan of Care:Hemodynamics will remain stable., Cardiac rhythm will remain stable., Comfort level will be maintained., Respiratory function will remain adequate., Patient/ family verbilizes understanding of procedure., Procedure tolerated without complication., Recovers from procedure without complications.. 13:01:28 Jayln Gilbert RT(R) sent for patient. Start room use. 13:01:40 H&P Date Dictated: 02/03/2020 Within 30 days and on chart., H&P Addendum completed by physician on day of procedure. (MUST COMPLETE FOR ALL OUTPATIENTS). 13:01:52 Patient allergic to Sulfa drugs 13:04:48 Patient Weight : 235.9 lbs 13:04:51 Patient Height : 72.83 inches 13:05:30 Arrival Date: 02/22/2020 12:00:00 AM 13:07:16 Lab Result : Creatinine 1.7 mg/dl 13:07:16 Lab Result : BUN 25 mg/dl 13:07:16 Lab Result : eGFR NONAFRICAN 42 ml/min 13:07:16 Lab Result : Hematocrit 44.3 % 13:07:16 Lab Result : Hemoglobin 14.9 g/dl 13:07:46 Patient received from Pre/Post Procedure Room to CCL 1 Alert and oriented. Tansferred to table in Supine position. 13:07:47 Warm blankets applied, and nando hugger turned on for patient comfort. 13:07:48 Correct patient and procedure confirmed by team. 13:07:48 ECG and BP/O2 sat monitors applied to patient. 13:10:33 Pre-procedure instructions explained to patient. 13:10:34 Pre-op teaching completed and patient verbalized understanding. 13:10:36 Family in patients room. 13:10:38 Patient NPO since Midnight. 13:10:40 Is patient on blood thinner?Yes 13:10:43 ACC The patient was administered the following blood thiners within the last 24 hours: ACCPlavix 13:10:46 Patient diabetic? No. 13:10:50 Previous problem with sedation/anesthesia? No ? 13:10:51 Snore? Yes 13:10:52 Sleep apnea? No 13:10:53 Deviated septum? No 13:10:53 Opens mouth fully? Yes 13:10:59 Sticks out tongue? Yes 13:11:00 Airway obstruction? No ? 13:11:03 Dentures? No ? 13:11:08 Pre procedure: right dorsailis pedis pulse 1+ Palpable, but thready & weak; easily obliterated 13:11:23 IV patent on arrival in right antecubital with 0.9% NaCl at KVO. 13:11:25 Lab results completed and on chart. 13:11:48 Stress Test: yes; abnormal INFERIOR AND LATERAL 13:12:02 Right Radial & Right Groin area was prepped with chlora-prep and draped in sterile fashion 13:12:04 Alarms reviewed by R. N. 13:12:04 Sharps counted by scrub and verified by R.N. 13:12:08 Vital chart was started 13:12:32 Rhythm: sinus rhythm 13:12:33 Full Disclosure recording started 13:12:38 Use device set Radial Dx or PCI 13:12:39 ACIST Syringe (02755) opened to sterile field. 13:12:40 Bag Decanter (2002S) opened to sterile field. 13:12:40 ACIST Hand Control (48689) opened to sterile field. 13:12:41 ACIST Manifold (78624) opened to sterile field. 13:12:41 Tegaderm 4 x 4 (1626W) opened to sterile field. 13:12:43 Medline Cath Pack ([id number]) opened to sterile field. 13:12:43 MBrace Wrist Support ([id number]) opened to sterile field. 13:12:44 NEEDLE Cook 21G 4cm Radial (M15012) opened to sterile field. 13:12:46 EMERALD Guide Wire (365-963) opened to sterile field. 13:12:47 SHEATH 6FR RAIN (9846157) opened to sterile field. 13:15:55 Baseline sample Acquired. 13:18:34 Oxygen 2 l/min etCO2 Nasal cannula was administered by Ángel Acosta RN; used for procedure; Verbal order read back and verified. 13:18:41 Lidocaine 2% 20ml vial added to field was administered by Philip Jha MD; for local anesthetic; Verbal order read back and verified. 13:18:47 Heparin Flush Bag (1000units/500ml NS) 2 bags added to field was administered by Philip hJa MD; used for procedure; Verbal order read back and verified. 13:18:59 0.9% NaCl 100 ml/hr I.V. was administered by Ángel Acosta RN; Per physician; Verbal order read back and verified. 13:23:52 Radial Cocktail (Verapamil 2mg/Nitro 400mcg/Heparin 1500units) 1 syringe added to field was administered by Philip Jha MD; for vasodilation; Verbal order read back and verified. 13:28:29 Zero performed for pressure channel P1 13::32 Zero performed for pressure channel P1 13::34 Zero performed for pressure channel P1 13::36 Zero performed for pressure channel P1 13:28:38 Zero performed for pressure channel P1 13:28:48 Zero performed for pressure channel P1 13::53 Zero performed for pressure channel P1 13::55 Zero performed for pressure channel P1 13::57 Zero performed for pressure channel P1 13::59 Zero performed for pressure channel P1 13:30:11 Physician arrived 13:30:12 --------ALL STOP TIME OUT------ 13:30:13 Final Timeout: patient, procedure, and site verified with staff and physician. All members of the team are in agreement. 13:30:15 Right Radial & Right Groin site verified by team. 13:30:24 Fire Safety Assessment: A--An alcohol-based skin anteseptic being used preoperatively., C--Open oxygen or nitrous oxide is being used., D--An ESU, laser, or fiber-optic light is being used. 13:30:28 Physical assessment completed. ASA score P 2 - A patient with mild systemic disease as per Philip Jha MD. 13:30:33 2) 60-89 Mildly reduced kidney function, and other findings (as for stage 1) point to kidney disease. 13:30:37 Maximum allowable contrast dose (3.7 X eGFR X 0.75)117 ml. 13:30:42 Sedation plan: IV Moderate Sedation Medication:Versed, Fentanyl 13:30:46 Zero performed for pressure channel P1 13::49 Zero performed for pressure channel P1 13:31:00 Zero performed for pressure channel P1 13:31:07 Zero performed for pressure channel P1 13:31:25 Zero performed for pressure channel P1 13::31 Zero performed for pressure channel P1 13::39 Versed 1 mg I.V. was administered by Ángel Acosta RN; for sedation; Verbal order read back and verified. 13:31:45 Fentanyl 50 mcg I.V. was administered by Ángel Acosta RN; for sedation; Verbal order read back and verified. 13::49 Zero performed for pressure channel P1 13:32:04 Procedure started. 13:32:29 Local anesthetic to right radial artery with Lidocaine 2% by Philip Jha MD.INITIAL ACCESS ONLY 13:33:19 A 6 Fr Short sheath was inserted into the Right Radial artery 13:33:57 A DIAGNOSTIC Ovidio 110cm 5Fr catheter (072983) was advanced over the wire and used for Procedure. 13:34:32 Radial Cocktail (Verapamil 2mg/Nitro 400mcg/Heparin 1500units) 1 syringe I.A. was administered by Philip Jha MD; for vasodilation; Verbal order read back and verified. 13:35:29 Versed 1 mg I.V. was administered by Ángel Acosta RN; for sedation; Verbal order read back and verified. 13:35:34 Fentanyl 50 mcg I.V. was administered by Ángel Acosta RN; for sedation; Verbal order read back and verified. 13:38:42 LV gram done using SANTIAGO 13:38:57 EF : 45 % 13:40:16 Catheter removed. 13:40:23 Versed 1 mg I.V. was administered by Ángel Acosta RN; for sedation; Verbal order read back and verified. 13:40:24 A DIAGNOSTIC [place] 110cm 5 Fr catheter (535605) was advanced over the wire and used for Procedure. 13:40:27 Fentanyl 50 mcg I.V. was administered by Ángel Acosta RN; for sedation; Verbal order read back and verified. 13:43:17 LCA angiography performed. 13:47:31 Versed 1 mg I.V. was administered by Ángel Acosta RN; for sedation; Verbal order read back and verified. 13:47:34 Fentanyl 50 mcg I.V. was administered by Ángel Acosta RN; for sedation; Verbal order read back and verified. 13:48:04 Catheter removed. 13:48:22 A DIAGNOSTIC AR MOD 5Fr Catheter ([id number]) was advanced over the wire and used for Procedure. 13:48:29 RCA angiography performed. 13:57:33 ZEPHYR REGULAR TR BAND (078953) opened to sterile field. 13:57:40 Catheter removed. 13:57:50 Sheath removed intact; hemostasis achieved with Mechanical Compression to the Right Radial artery. 13:57:53 Procedure ended.(Physican Out) 13:58:26 Fluoroscopy time 10.90 minutes. 13:58:31 Flurop Dose total: 1925 13:58:31 Fluoroscopy dose: 1926 mGy 13:58:39 Dose Area Product 19806 mGy/cm. 13:59:18 Contrast amount:Isovue 370 142ml. 13:59:20 Maximum allowable dose exceeded? No. 13:59:21 Sharps counted by scrub and verified by R.N. 13:59:36 Prichard band inflated with 10cc of air. 13:59:38 Insertion/operative site no bleeding no hematoma. 13:59:46 Post Procedure Pulses reassessed and unchanged 13:59:53 Post-procedure physical assessment completed. ASA score P 3 - A patient with severe systemic disease as per Philip Jha MD. 13:59:56 Post procedure rhythm: unchanged. 13:59:59 Estimated blood loss: 5 ml 14:00:02 Post procedure instruction explained to patient.Patient verbalizes understanding. 14:00:22 Procedure type changed to Cath procedure, Diagnostic procedure, LHC, C w/Coronaries, Sedation Charges, Moderate Sedation up to 30 minutes 14:00:23 Procedure and supply charges have been captured, reviewed, submitted and are correct. 14:00:44 Procedure Complication : No complications 14:00:49 Vital chart was stopped 14:00:52 [facility] Findings: MVD- CABG consult 14:00:58 Report given to Pre/Post Procedure Room. 14:01:02 Patient transfered to Pre/Post Procedure Room with Stretcher. 14:01:04 Procedure ended. 14:01:04 Full Disclosure recording stopped 14:01:08 End room use (Document Last) 14:01:32 End room use (Document Last) 14:02:01 End room use (Document Last) Device Usage Item Name Manufacture Quantity Catalog Hospital Part Current Minima l Lot# / Number Charge Number Stock Stock Serial# Code ACIST Acist 1 61033 601438 034721 469535 20 Syringe Medical (42471) Systems Inc Bag Microtek 1 629168 85223 387454 5 Decanter Medical Inc. () ACIST Hand Acist 1 86496 029664 220034 026381 5 Control Medical (49172) Systems Inc ACIST Acist 1 59632 722846 760800 532933 5 Manifold Medical (27599) Systems Inc Tegaderm 4 3M 1 1626W 955019 932564 500099 5 x 4 (1626W) Medline Medline 1 [id number] 499255 08190 337361 5 Cath Pack ([id number]) MBrace Advanced 1 140-0250-00 158741 20044 953802 5 Wrist Vascular Support Dynamics ([id number]) NEEDLE Cook Cook Medical 1 M98596 440572 186268 431817 5 21G 4cm Radial (M03873) EMERALD Cardinal 1 502-455 743523 924293 532312 5 Guide Wire Health (502455) SHEATH 6FR Cardinal 1 2386477 079380 6310672 986809 5 [facility] Health (5396478) DIAGNOSTIC Terumo 1 40-5023 381482 710024 194951 5 Ovidio 110cm 5Fr catheter (089459) DIAGNOSTIC Terumo 1 40-5013 937947 498648 538545 5 [place] 110cm 5 Fr catheter (236931) DIAGNOSTIC Cardinal 1 [id number] 468334 294342 672705 15 AR MOD 5Fr Health Catheter (012603T) ZEPHYR Cardinal 1 180639 038630 0858066 865477 5 REGULAR TR Health BAND (840452) Signature Audit Latty Stage Time Signature Unsigned Intra-Procedure 02/22/2020 Yarely Moe 2:01:32 PM RT(R) Intra-Procedure 02/22/2020 Ángel Acosta RN 2:02:01 PM Intra-Procedure 02/22/2020 Philip Jha MD 2:02:30 PM [facility] [address] [place] [address]
[2020-02-22 12:08] VITALS: BP 142/79; Ht 185.4 cm; Wt 106.8 kg
[2020-02-22 12:30] LABS: BASOPHILS 0.2 % (0-2); EOSINOPHILS 0.6 % (0-7); HEMATOCRIT 44.3 % (42.0-54.0); HEMOGLOBIN 14.9 g/dL (13.5-17.5); IMMATURE GRANULOCYTES 1.3 % (0-5); LYMPHOCYTES 10.2 % (15-50); MCH 31.9 pg (26.0-34.0); MCHC 33.6 g/dL (31.0-37.0); MCV 94.9 fL (80.0-100.0); MEAN PLATELET VOLUME 9.4 fL (7.4-10.4); MONOCYTES 7.1 % (2-11); NEUTROPHILS 80.6 % (40-80); PLATELET COUNT 196 10x3/uL (130-400); RBC 4.67 10x6/uL (4.20-6.10); RDW 12.8 % (11.5-14.5)
[2020-02-22 12:46] LABS: ANION GAP 14.2 mmol/L (8-16); CARBON DIOXIDE 23.2 mmol/L (21.0-32.0); CHOL - HDL RATIO 2.6 ratio (2.3-4.9); CREATININE - SERUM 1.7 mg/dL (0.6-1.3); POTASSIUM - SERUM 4.4 mmol/L (3.5-5.1)
--- NOTE | 2020-02-22 14:11 | NUR ---
PT ARRIVED BY STRETCHER. PLACED ON MONITORS. ASSESSMENT COMPLETED. VSS AT THIS TIME. CALL LIGHT WITHIN REACH. NO FAMILY AT BEDSIDE AT THIS TIME.
--- NOTE | 2020-02-22 14:26 | NUR ---
PT RESTING COMFORTABLY. VSS. CALL LIGHT WITHIN REACH. RIGHT WRIST Z BAND IN PLACE. NO BLEEDING/HEMATOMA NOTED.
--- NOTE | 2020-02-22 14:56 | NUR ---
RIGHT WRIST Z BAND IN PLACE. NO BLEEDING/HEMATOMA NOTED. PT AWAKE AND ALERT. HEAD OF BED AT 30 DEGREES. SET UP WITH SANDWICH TRAY AND DRINK AT THIS TIME. DENIES NAUSEA/PAIN.
--- NOTE | 2020-02-22 15:26 | NUR ---
RIGHT WRIST Z BAND IN PLACE. NO BLEEDING/HEMATOMA NOTED. 2cc OF AIR REMOVED FROM Z BAND. NO ISSUES NOTED. TOLERATED WELL. DENIES NAUSEA/PAIN AT THIS TIME. CALL LIGHT WITHIN REACH.
--- NOTE | 2020-02-22 15:40 | NUR ---
RIGHT WRIST Z BAND IN PLACE. 3cc OF AIR REMOVED FROM Z BAND. NO BLEEDING/HEMATOMA NOTED. CALL LIGHT WITHIN REACH. PT ALERT AND ORIENTED. VSS AT THIS TIME.
--- NOTE | 2020-02-22 16:00 | NUR ---
4cc OF AIR REMOVED FROM Z BAND. NO BLEEDING/HEMATOMA NOTED. CALL LIGHT WITHIN REACH. VSS.
[2020-02-22] MEDS ORDERED: RANEXA500 MG PO (16:14)
--- NOTE | 2020-02-22 16:15 | NUR ---
Z BAND REMOVED AND DRESSING APPLIED. NO BLEEDING/HEMATOMA NOTED. PIV D/C'D WITH CATH TIP INTACT. TOLERATED WELL. VSS AT THIS TIME. PT INSTRUCTED TO GET UP AND DRESSED AT THIS TIME. NO ASSISTANCE NEEDED.
--- NOTE | 2020-02-22 16:25 | NUR ---
DISCUSSED DISCHARGE INSTRUCTIONS WITH PT. HE VOICED UNDERSTANDING. RIGHT WRIST DRESSING C/D/I. NO S/S OF HEMATOMA NOTED.
--- NOTE | 2020-02-22 16:45 | NUR ---
RIGHT WRIST DRESSING C/D/I. NO S/S OF HEMATOMA NOTED. PT TAKEN DOWN TO VEHICLE BY WHEELCHAIR. NO S/S OF DISTRESS NOTED. ALL BELONGINGS AND PAPERWORK IN HAND.
== END 2020-02-22 16:45 | disposition home or self-care (01) ==
LOC: D.CATH 11:14
PROVIDERS: ATTEND Internal Medicine Cardiovascular Disease
DX: I25.119 Atherosclerotic heart disease of native coronary artery with unspecified angina pectoris (principal); R94.39 Abnormal result of other cardiovascular function study; I10 Essential (primary) hypertension; R06.09 Other forms of dyspnea; I25.10 Atherosclerotic heart disease of native coronary artery without angina pectoris; E78.5 Hyperlipidemia, unspecified